=== PATIENT | male | born 1930 | race Caucasian/White ===

== ENCOUNTER 2017-01-13 13:25 | Inpatient (IN) ==
[2017-01-13] MEDS ORDERED: Ipratropium/Albuterol Neb 3 ML IH ONE (13:54)
[2017-01-13] MEDS ORDERED: Furosemide 40 MG/4 ML VIAL IVP ONE (13:54)
--- NOTE | 2017-01-13 14:09 | Emergency Department Note ---
Disposition Clinical Impression: Pleural effusion, Elevated troponin level Dyspnea Qualifiers: Dyspnea type: orthopnea Qualified Code(s): R06.01 - Orthopnea CHF (congestive heart failure) Qualifiers: Congestive heart failure type: unspecified congestive heart failure type Congestive heart failure chronicity: acute on chronic Qualified Code(s): I50.9 - Heart failure, unspecified Disposition: Admitted As Inpatient Condition: Fair SOB HPI - General Chief Complaint: ED Shortness of Breath/Dyspnea Stated Complaint: "think i have CHF" Time Seen by Provider: 01/13/17 13:34 Source: patient Nursing Notes Reviewed: Yes Vital Signs Reviewed: Yes - History of Present Illness 86-year-old male presents due to orthopnea and peripheral edema that has been worsening over the past week. Denies associated chest pain or tightness. No palpitations. No syncope. Denies abdominal pain or bloating. He had increased his Lasix for 3 days with transient improvement but the edema has returned. He is having difficulty sleeping due to the orthopnea. Denies associated fever but has had a cough productive of thick, [place] sputum. Pt Subjective Complaint: shortness of breath Onset (ago): day(s) (7) Severity: moderate Consistency/Duration: constant Improves with: nothing Worsens with: lying flat, coughing Known history of: COPD, congestive heart failure Associated symptoms: Reports: cough, sputum production, orthopnea. Denies: chest pain, fever, palpitations, hemoptysis, nausea/vomiting, syncope Treatment prior to arrival: none Cough present: Yes Cough Description: Productive Sputum production: Yes Sputum Amount: Small Sputum Color: [place] - Related Data Home Medications Medication Instructions Recorded Confirmed Amlodipine Besylate 10 mg PO DAILY 01/13/17 01/13/17 Calcitriol [Rocaltrol] 0.25 mcg PO DAILY 01/13/17 01/13/17 Cholecalciferol (D-3) [Vitamin D] 2,000 unit PO DAILY 01/13/17 01/13/17 Clopidogrel [Plavix] 75 mg PO DAILY 01/13/17 01/13/17 Docusate [Colace] 100 mg PO BID 01/13/17 01/13/17 Finasteride [Proscar] 5 mg PO DAILY 01/13/17 01/13/17 Furosemide [Lasix] 40 mg PO DAILY 01/13/17 01/13/17 Insulin ASPART [NovoLOG] 0 unit SQ 1700 01/13/17 01/13/17 Insulin ASPART [NovoLOG] 20 unit SQ 0800,1200 01/13/17 01/13/17 Insulin NPH Human Isophane 15 unit SQ QAM AND QHS 01/13/17 01/13/17 [Novolin N] Levothyroxine [Synthroid] 150 mcg PO QAM 01/13/17 01/13/17 Lisinopril [Zestril] 40 mg PO BID 01/13/17 01/13/17 Metoprolol Succinate 100 mg PO DAILY 01/13/17 01/13/17 Simvastatin [Zocor] 20 mg PO HS 01/13/17 01/13/17 Warfarin [Coumadin] 2.5 mg PO Q72H 01/13/17 01/13/17 Allergies Allergy/AdvReac Type Severity Reaction Status Date / Time No Known Allergies Allergy Verified 01/13/17 13:32 All systems ED: reviewed and negative except as stated. Constitutional: Denies: fever Cardiovascular: Denies: chest pain Respiratory: Reports: cough, sputum production Gastrointestinal: Denies: abdominal pain, nausea Genitourinary: Denies: urgency, dysuria Musculoskeletal: Denies: back pain Neurological: Denies: headache, weakness Endocrine: Reports: fatigue Past Medical History - Past Medical History Attestation: Yes The following information was validated with the patient. Medical history: Reports: CHF, coronary artery disease, diabetes, hypertension, myocardial infarction, renal disease Surgical history: Reports: coronary bypass (CABG), AICD, pacemaker. Denies: heart valve replacement Psychiatric history: Reports: no psych history - Social History Smoking Status: Former smoker Alcohol use: Reports: none Drug use: Reports: none Physical Exam - General General appearance: alert, in no apparent distress - Eye Eye exam: Present: normal appearance - ENT ENT exam: normal exam - Neck Neck exam: Present: normal inspection - Chest Chest inspection: Present: normal inspection - Respiratory Respiratory exam: Present: wheezes. Absent: respiratory distress - Expanded Respiratory Exam Location: rales: Lower, Right, Left - Cardiovascular Cardiovascular exam: Present: regular rate - Abdominal Exam Abdominal exam: Present: soft, Non-Tender - Extremities Exam Extremities exam: Absent: tenderness - Expanded Lower Extremity Exam Lower leg exam: Present: swelling Ankle exam: Present: swelling Foot/toe exam: Present: swelling - Back Exam Back exam: Absent: CVA tenderness (R), CVA tenderness (L), paraspinal tenderness - Neurological Exam Neurological exam: Present: alert, oriented X3 - Psychiatric Psychiatric exam: Present: normal affect - Skin Skin exam: Present: warm, dry Course - Reevaluation(s) Reevaluation #1: Patient improved after one aerosol treatment and 40 mg of IV Lasix. Troponin is elevated and he will be admitted for further workup. He is 10 years status post 2 vessel CABG and we will have to consider the possibility of recurring coronary disease. Vital Signs Temperature 97.4 F L 01/13/17 13:29 Pulse Rate 89 01/13/17 13:29 Respiratory Rate 16 01/13/17 13:29 Blood Pressure 130/71 01/13/17 13:29 O2 Sat by Pulse Oximetry 90 01/13/17 13:29 Temperature 97.9 F 01/13/17 16:50 Pulse Rate 94 01/13/17 16:50 Respiratory Rate 16 01/13/17 16:50 Blood Pressure 126/81 01/13/17 16:50 O2 Sat by Pulse Oximetry 96 01/13/17 16:50 Oxygen Delivery Oxygen Delivery Nasal Cannula Shortness of Breath/Dyspnea - Lab Data Result diagrams: 01/13/17 14:06 01/13/17 14:06 Lab Results 01/13/17 01/13/17 01/13/17 Range/Units 14:06 14:06 14:06 WBC 6.2 (4.3-11.1) K/mcL RBC 3.87 L (4.19-5.50) M/mcL Hgb 11.9 L (12.9-16.9) g/dL Hct 36.9 L (37.5-50.1) % MCV 95.3 (83.0-100.0) fL MCH 30.7 (28.0-33.3) pg MCHC 32.2 (31.6-35.5) g/dL RDW 13.0 (11.5-14.5) % Plt Count 192 (140-400) K/mcL MPV 9.1 L (9.4-12.4) fL Immature Gran % 0.5 (0-4) % Seg Neutrophils % 69.7 % Lymphocytes % 23.1 % Monocytes % 6.3 % Eosinophils % 0.2 % Basophils % 0.2 % Neutrophils # 4.3 (1.6-8.9) K/mcL Lymphocytes # 1.4 (0.6-4.6) K/mcL Monocytes # 0.4 (0.0-1.3) K/mcL Eosinophils # 0.0 (0.0-0.6) K/mcL Basophils # 0.0 (0.0-0.2) K/mcL Sodium 138 (136-145) mEq/L Potassium 4.2 (3.5-4.5) mEq/L Chloride 103 (98-109) mEq/L Carbon Dioxide 26 (19-29) mEq/L BUN 30 H (8-26) mg/dL Creatinine 1.51 H (0.72-1.25) mg/dL Est GFR ( Amer) 53 L (> 60) Est GFR (Non-Af Amer) 44 L (> 60) BUN/Creatinine Ratio 20 (6-26) Glucose 150 H (70-99) mg/dL Calculated Osmolality 295 (280-300) Calcium 9.1 (8.6-10.8) mg/dL Troponin I 0.08 H* (0-0.03) ng/mL B-Natriuretic Peptide (0-100) pg/mL Albumin 3.4 L (3.5-5.0) g/dL Urine Color (Yellow) Urine Clarity (Clear) Urine pH (5.0-8.0) pH Units Ur Specific Mark (1.010-1.025) Urine Protein (Neg-Trace) mg/dL Urine Glucose (UA) (Normal) mg/dL Urine Ketones (Negative) mg/dL Urine Blood (Negative) Urine Nitrite (Negative) Urine Bilirubin (Negative) Urine Urobilinogen (Normal) mg/dL Ur Leukocyte Esterase (Negative) Urine Microscopic WBC Ur Squamous Epith Cells (None-Few) per lpf Hyaline Casts (None-Few) per lpf Ur Culture Indicated? (NO) 01/13/17 01/13/17 Range/Units 14:06 15:07 WBC (4.3-11.1) K/mcL RBC (4.19-5.50) M/mcL Hgb (12.9-16.9) g/dL Hct (37.5-50.1) % MCV (83.0-100.0) fL MCH (28.0-33.3) pg MCHC (31.6-35.5) g/dL RDW (11.5-14.5) % Plt Count (140-400) K/mcL MPV (9.4-12.4) fL Immature Gran % (0-4) % Seg Neutrophils % % Lymphocytes % % Monocytes % % Eosinophils % % Basophils % % Neutrophils # (1.6-8.9) K/mcL Lymphocytes # (0.6-4.6) K/mcL Monocytes # (0.0-1.3) K/mcL Eosinophils # (0.0-0.6) K/mcL Basophils # (0.0-0.2) K/mcL Sodium (136-145) mEq/L Potassium (3.5-4.5) mEq/L Chloride (98-109) mEq/L Carbon Dioxide (19-29) mEq/L BUN (8-26) mg/dL Creatinine (0.72-1.25) mg/dL Est GFR ( Amer) (> 60) Est GFR (Non-Af Amer) (> 60) BUN/Creatinine Ratio (6-26) Glucose (70-99) mg/dL Calculated Osmolality (280-300) Calcium (8.6-10.8) mg/dL Troponin I (0-0.03) ng/mL B-Natriuretic Peptide 515 H (0-100) pg/mL Albumin (3.5-5.0) g/dL Urine Color Yellow (Yellow) Urine Clarity Clear (Clear) Urine pH 5.5 (5.0-8.0) pH Units Ur Specific Mark 1.016 (1.010-1.025) Urine Protein 100 H (Neg-Trace) mg/dL Urine Glucose (UA) Normal (Normal) mg/dL Urine Ketones Negative (Negative) mg/dL Urine Blood Small H (Negative) Urine Nitrite Negative (Negative) Urine Bilirubin Negative (Negative) Urine Urobilinogen Normal (Normal) mg/dL Ur Leukocyte Esterase Negative (Negative) Urine Microscopic WBC Test Not Performed Ur Squamous Epith Cells Few (None-Few) per lpf Hyaline Casts Few (None-Few) per lpf Ur Culture Indicated? NO (NO) - EKG Data EKG attestation: Yes I reviewed and interpreted this EKG. EKG results narrative: Electronic ventricular pacemaker with a rate of 93. Rate: Reports: normal Rhythm: Reports: other (Electronic ventricular pacemaker) Critical Care Time Attestation: The high probability of a clinically significant, sudden or life threatening deterioration of the [cardiovascular] system(s) required my full and direct attention, intervention and personal management. The aggregate critical care time was [32] minutes. This time is in addition to time spent performing reported procedures but includes the following: [x] Data Review and interpretation [x] Patient assessment and monitoring of vital signs [x] Documentation [x] Medication orders and management
[2017-01-13 14:19] LABS: Basophils % 0.2 %; Eosinophils % 0.2 %; Hematocrit 36.9 % (37.5-50.1); Hemoglobin 11.9 g/dL (12.9-16.9); Immature Granulocytes % 0.5 % (0-4); Lymphocytes # 1.4 K/mcL (0.6-4.6); Lymphocytes % 23.1 %; Mean Corpuscular HGB Conc 32.2 g/dL (31.6-35.5); Mean Corpuscular Hemoglobin 30.7 pg (28.0-33.3); Mean Corpuscular Volume 95.3 fL (83.0-100.0); Mean Platelet Volume 9.1 fL (9.4-12.4); Monocytes # 0.4 K/mcL (0.0-1.3); Monocytes % 6.3 %; Neutrophils # 4.3 K/mcL (1.6-8.9); Platelet Count 192 K/mcL (140-400); Red Blood Count 3.87 M/mcL (4.19-5.50); Segmented Neutrophils % 69.7 %
[2017-01-13 14:29] LABS: Albumin 3.4 g/dL (3.5-5.0); Calcium 9.1 mg/dL (8.6-10.8); Potassium 4.2 mEq/L (3.5-4.5)
[2017-01-13] MEDS ORDERED: Aspirin 81 MG TAB.CHEW PO ONE (14:58)
[2017-01-13 15:18] LABS: Bilirubin,Urine Negative (Negative); Blood,Urine Small (Negative); Clarity,Urine Clear (Clear); Color,Urine Yellow (Yellow); Glucose,Urine (UA) Normal (Normal); Ketones,Urine Negative (Negative); Leukocyte Esterase,Urine Negative (Negative); Nitrite,Urine Negative (Negative); PH,Urine 5.5 pH Units (5.0-8.0); Protein,Urine 100 mg/dL (Neg-Trace); Specific Gravity,Urine 1.016 (1.010-1.025); Urobilinogen,Urine Normal (Normal)
[2017-01-13 15:30] LABS: Hyaline Casts,Urine Few per lpf (None-Few); Squamous Epithelial Cell,Urine Few per lpf (None-Few)
--- NOTE | 2017-01-13 17:12 | Internal Med History&Physical ---
Date of Encounter: 01/13/17 Time of Encounter: 17:09 Assessment and Plan (1) Acute exacerbation of CHF (congestive heart failure) Current visit: Yes Status: Acute symptoms of orthopnea/PND 2/2 CHF excerbation last ECHO on 2012 shows EF of 30%, s/p AICD placement. will order repeat ECHO CXR shows vascular congestion. fluid restriction connie start IV lasix 40 daily, monitor BNP> f/u cardio consult. will continue home meds. Qualifiers: Congestive heart failure type: systolic Qualified Code(s): I50.23 - Acute on chronic systolic (congestive) heart failure (2) Atrial fibrillation Current visit: Yes Status: Acute h/o atrial fib, on AC. stable for now, will continue home meds Qualifiers: Atrial fibrillation type: chronic Qualified Code(s): I48.2 - Chronic atrial fibrillation (3) HTN (hypertension) Current visit: Yes Status: Chronic Qualifiers: Hypertension type: essential hypertension Qualified Code(s): I10 - Essential (primary) hypertension (4) Diabetes Current visit: Yes Status: Acute Qualifiers: Diabetes mellitus type: type 2 Diabetes mellitus complication status: without complication Diabetes mellitus mcc insulin use: with mcc use Qualified Code(s): E11.9 - Type 2 diabetes mellitus without complications ; Z79.4 - FDC (current) use of insulin (5) Elevated troponin Current visit: Yes Status: Acute possible demand ischemia in the setting of CHF exacerbation. denies any chest pain at this time, EKG shows paced ventricular rhythm. will trend trop, he has h/o systolic dysfxn, if EF is worse on the ECHO may need ischemic evaluation. (6) CKD (chronic kidney disease) Current visit: Yes Status: Acute Creatinine at baseline, follows with Dr. Vazquez. Monitor chem7. Qualifiers: Chronic kidney disease stage: stage 3 (moderate) Qualified Code(s): N18.3 - Chronic kidney disease, stage 3 (moderate) Internal Medicine - H&P: HPI Chief complaint: sob Admitted From: Home Plans for Post Hospital Care: Home History of present illness: Mr. Sanchez is a 86 year old male with past medical history of CHF, EF of 30% 2012, history of atrial fibrillation, hypertension, diabetes presented to ED with complaints of shortness of breath for the last 2 weeks. He denies any chest pain, but says he has been having worsening shortness of breath with orthopnea and PND started 2 weeks ago. He also complains of worsening bilateral lower leg swelling and abdominal swelling. He gives history of CHF and follows Dr. Johnson, he reports that he takes Lasix at home, noncompliant with medications and diet. There is no history of fever or cough, no nausea or vomiting. Patient was given 40 mg of IV Lasix at ED, after which he says he feels better. He does not smoke or drink, not on home oxygen. At the time of my evaluation, patient is resting in bed,in no acute respiratory distress. Past Med Surg Social Fam HX - Past Medical History Medical history: CHF, coronary artery disease, diabetes, hypertension, myocardial infarction, renal disease Psychiatric history: no psych history - Past Surgical History Surgical History: coronary bypass (CABG), AICD, pacemaker - Social History Smoking Status: Former smoker Alcohol use: none Drug use: none Internal Medicine - H&P: Meds Amlodipine Besylate 10 mg PO DAILY 01/13/17 [History] Calcitriol [Rocaltrol] 0.25 mcg PO DAILY 01/13/17 [History] Cholecalciferol (D-3) [Vitamin D] 2,000 unit PO DAILY 01/13/17 [History] Clopidogrel [Plavix] 75 mg PO DAILY 01/13/17 [History] Docusate [Colace] 100 mg PO BID 01/13/17 [History] Finasteride [Proscar] 5 mg PO DAILY 01/13/17 [History] Furosemide [Lasix] 40 mg PO DAILY 01/13/17 [History] Insulin ASPART [NovoLOG] 0 unit SQ 1700 01/13/17 [History] Insulin ASPART [NovoLOG] 20 unit SQ 0800,1200 01/13/17 [History] Insulin NPH Human Isophane [Novolin N] 15 unit SQ QAM AND QHS 01/13/17 [History] Levothyroxine [Synthroid] 150 mcg PO QAM 01/13/17 [History] Lisinopril [Zestril] 40 mg PO BID 01/13/17 [History] Metoprolol Succinate 100 mg PO DAILY 01/13/17 [History] Simvastatin [Zocor] 20 mg PO HS 01/13/17 [History] Warfarin [Coumadin] 2.5 mg PO Q72H 01/13/17 [History] Allergies No Known Allergies Allergy (Verified 01/13/17 13:32) All Systems PM: A 10-system review of systems was performed and is negative for pertinent findings except as documented above in the HPI. - Constitutional Constitutional: as per HPI - EENT Eyes: as per HPI Ears: as per HPI Nose, mouth and throat: as per HPI - Breasts Breasts: as per HPI - Cardiovascular Cardiovascular ROS IM: dyspnea on exertion, edema - Respiratory Respiratory: dyspnea - Gastrointestinal Gastrointestinal: as per HPI - Genitourinary Genitourinary ROS male: as per HPI - Musculoskeletal Musculoskeletal ROS IM: as per HPI - Constitutional Vitals: Temp Pulse Resp BP Pulse Ox 97.9 F 94 16 126/81 96 01/13/17 16:50 01/13/17 16:50 01/13/17 16:50 01/13/17 16:50 01/13/17 16:50 General appearance: Present: A&O X 3, no acute distress Exam: neck- supple chest- b/l occasional creptns on the bases, no wheezing cvs-s1 and s2, no mr/g/ abd-soft, non tender, bs are present ext- b/l lower leg edema,pittingup to his thigh. neuro- no focal neuro defecits, alert and awake Internal Med - H&P Results - Labs CBC & Chem 7: 01/13/17 14:06 01/13/17 14:06 - VTE Documentation of Mechanical Device: Intermittent pneumatic compression device
[2017-01-13] MEDS ORDERED: Naloxone 0.4 MG/ML INJ IVP PRN (17:27)
[2017-01-13] MEDS ORDERED: *HR* Warfarin 2.5 MG TABLET PO SCH (18:00)
[2017-01-13] MEDS ORDERED: *HR* Warfarin 5 MG TABLET PO SCH (18:00)
[2017-01-13] MEDS ORDERED: *HR* Dextrose 50 % in Water (Syg) 50 ML SYRINGE IVP PRN (19:32)
[2017-01-13] MEDS ORDERED: D5% in Water 1,000 ML IVC PRN (19:32)
[2017-01-13] MEDS ORDERED: Dextrose Gel 15 GM PO PRN ×2 (19:32)
[2017-01-13] MEDS ORDERED: Perflutren Lipid Microsphere 1.3 ML in 0.9 % Sodium Chloride 8.7 ML IVP ONE (20:40)
[2017-01-13] MEDS: Insulin LISPRO 300 UNITS/3 ML VIAL SQ SCH (22:27)
[2017-01-13] MEDS: Insulin DETEMIR 100 UNIT/ML X5UNITS SQ SCH (22:29)
[2017-01-13] MEDS: Lisinopril 20 MG TABLET PO SCH (22:29)
[2017-01-13 22:57] LABS: INR 2.3
[2017-01-14 03:10] LABS: Basophils % 0.1 %; Eosinophils # 0.1 K/mcL (0.0-0.6); Eosinophils % 0.7 %; Hematocrit 36.4 % (37.5-50.1); Hemoglobin 11.7 g/dL (12.9-16.9); Immature Granulocytes % 0.3 % (0-4); Lymphocytes # 2.1 K/mcL (0.6-4.6); Lymphocytes % 28.4 %; Mean Corpuscular HGB Conc 32.1 g/dL (31.6-35.5); Mean Corpuscular Hemoglobin 30.4 pg (28.0-33.3); Mean Corpuscular Volume 94.5 fL (83.0-100.0); Mean Platelet Volume 9.3 fL (9.4-12.4); Monocytes # 0.5 K/mcL (0.0-1.3); Monocytes % 6.2 %; Neutrophils # 4.7 K/mcL (1.6-8.9); Platelet Count 195 K/mcL (140-400); Red Blood Count 3.85 M/mcL (4.19-5.50); Red Cell Distribution Width 12.8 % (11.5-14.5); Segmented Neutrophils % 64.3 %
[2017-01-14 03:18] LABS: Calcium 8.7 mg/dL (8.6-10.8); Magnesium 1.8 mg/dL (1.6-2.6); Phosphorous 3.4 mg/dL (2.3-4.7); Potassium 3.8 mEq/L (3.5-4.5)
[2017-01-14] MEDS: Furosemide 40 MG/4 ML VIAL IVP SCH (08:08)
[2017-01-14] MEDS: Metoprolol XL (24 HR) Succ 50 MG TAB.ER.24H PO SCH (08:08)
[2017-01-14] MEDS: Finasteride 5 MG TABLET PO SCH (08:09)
[2017-01-14] MEDS: Lisinopril 20 MG TABLET PO SCH ×2 (08:09→21:09)
[2017-01-14] MEDS: Insulin LISPRO 300 UNITS/3 ML VIAL SQ SCH ×5 (08:10→21:10)
[2017-01-14] MEDS ORDERED: amLODIPine 5 MG TABLET PO SCH (09:00)
--- NOTE | 2017-01-14 10:26 | Internal Med Progress Note ---
<Brice Faith - Last Filed: 01/14/17 14:11> Date of Encounter: 01/14/17 - Constitutional Vitals: Temp Pulse Resp BP Pulse Ox 97.6 F 83 15 135/72 95 01/14/17 11:34 01/14/17 11:34 01/14/17 11:34 01/14/17 11:34 01/14/17 11:34 Internal Medicine: Result - Labs CBC & Chem 7: 01/14/17 02:42 01/14/17 02:42 Labs: Short CBC 01/14/17 Range/Units 02:42 WBC 7.3 (4.3-11.1) K/mcL Hgb 11.7 L (12.9-16.9) g/dL Hct 36.4 L (37.5-50.1) % Plt Count 195 (140-400) K/mcL Neutrophils # 4.7 (1.6-8.9) K/mcL BMP 01/14/17 02:42 Sodium 138 Potassium 3.8 Chloride 103 Carbon Dioxide 28 BUN 27 H Creatinine 1.49 H Glucose 139 H Calcium 8.7 Cardiac Enzymes 01/13/17 01/14/17 Range/Units 20:18 02:42 Troponin I 0.08 H* 0.09 H* (0-0.03) ng/mL - ABG Interpretation ABG results: PT/INR, D-dimer PT 25.0 Seconds (9.4-12.1) H 01/13/17 22:46 Consult Discharge Plan - Plan Referrals: Fabrizio Campbell MD [Primary Care Provider] - - Attending Attestation I examined this patient and my medical decision-making was reviewed with the ELECTRONICS REPAIR TECHNICIAN/PA/Advanced Practice Nurse/Resident Physician. I agree with the documented findings, disposition and treatment plan as described except to the extent set forth below. appreciated cardiology recommendations home tomorrow <Maxim Spencer - Last Filed: 01/14/17 14:43> Date of Encounter: 01/14/17 Time of Encounter: 14:27 - Assessment and plan (1) Acute exacerbation of CHF (congestive heart failure) Current Visit: Yes Status: Acute Assessment and plan: 86 y/o male presents with chief complaint of shortness of breath. Shortness of breath worsens with lying down. Patient also says he has had worsening lower extremity edema. Currently he is on Lasix for history of CHF. Patient will increase the dose but had transient improvement in his lower extremity edema and shortness of breath. BNP 515 Chest x-ray shows pulmonary vascular congestion Last echo in 2012 showed EF of 30%. Repeat echo shows EF of 30%. Patient was given IV Lasix in the ER and had improvement in his shortness of breath. Continue strict I's and O's, cardiac, fluid restricted, ADA diet. Patient is noncompliant with his fluid restricted diet and diet consists of high salt foods. He states he takes his Lasix regularly. Cardiology recommendations appreciated. Qualifiers: Congestive heart failure type: systolic Qualified Code(s): I50.23 - Acute on chronic systolic (congestive) heart failure (2) Elevated troponin Current Visit: Yes Status: Acute Assessment and plan: Troponin 0.08,0.08,0.09 Adynamic, demand ischemia and in setting of CKD Echo LVEF 30% no change from pervious Continue palavix, statin, metoprolol,naz Hx of CAD s/p CABG x 2. [facility] 2012 moderate 2 vessel disease with 2/2 patent bypass grafts. s/p ICD (3) Atrial fibrillation Current Visit: Yes Status: Chronic Assessment and plan: Rate controlled and anticoagulated with Coumadin with INR 2.3. Continue metoprolol and Coumadin. Qualifiers: Atrial fibrillation type: unspecified Qualified Code(s): I48.91 - Unspecified atrial fibrillation (4) HTN (hypertension) Current Visit: Yes Status: Chronic Assessment and plan: Controlled. Continue lisinopril. Amlodipine discontinued this patient has Low EF. Will monitor BP. Qualifiers: Hypertension type: essential hypertension Qualified Code(s): I10 - Essential (primary) hypertension (5) Diabetes Current Visit: Yes Status: Chronic Assessment and plan: Controlled. Continue levamir 10 units SQ HS and SSI Qualifiers: Diabetes mellitus type: type 2 Diabetes mellitus complication status: without complication Diabetes mellitus longterm insulin use: with longterm use Qualified Code(s): E11.9 - Type 2 diabetes mellitus without complications ; Z79.4 - jail (current) use of insulin (6) CKD (chronic kidney disease) Current Visit: Yes Status: Chronic Assessment and plan: SCr baseline. continue to monitor. has increase urine production 2nd to diuresis. I and O -905 Qualifiers: Chronic kidney disease stage: stage 3 (moderate) Qualified Code(s): N18.3 - Chronic kidney disease, stage 3 (moderate) - Subjective Interval history: Patient states his shortness of breath has improved tremendously. His lower extremity swelling has also improved. He denies any chest pain, nausea. States he has bilateral lower extremity cramping but it is not present at this moment. - Constitutional Vitals: Temp Pulse Resp BP Pulse Ox 97.8 F 86 16 127/73 97 01/14/17 06:46 01/14/17 06:46 01/14/17 06:46 01/14/17 06:46 01/14/17 06:46 General appearance: Present: A&O X 3, no acute distress - Head Head exam: Present: atraumatic, normocephalic - Eye Eye exam: Present: PERRL, conjuntiva pink, sclera anicteric - Neck Neck exam general surgery: Present: supple, trachea midline. Absent: lymphadenopathy - Respiratory Respiratory exam: Present: CTAB. Absent: accessory muscle use, rales, rhonchi, wheezes - Cardiovascular Cardiovascular exam: Present: RRR, +S1, +S2. Absent: diastolic murmur, gallop, rubs, systolic murmur - GI/Abdominal GI/Abdominal exam: Present: normal bowel sounds, soft, no peritoneal signs. Absent: distended, tenderness - Extremities Exam Extremities exam: Present: warm, radial pulses palpable and symetrical. Absent : calf tenderness, cyanotic, pedal edema - Neurological Exam Neurological exam: Present: CN II-XII intact, oriented X3, no focal deficits. Absent: pronater drift, facial droop, speech deficit - Skin Skin exam: Present: dry, intact Internal Medicine: Result - Labs CBC & Chem 7: 01/14/17 02:42 01/14/17 02:42 Labs: Short CBC 01/14/17 Range/Units 02:42 WBC 7.3 (4.3-11.1) K/mcL Hgb 11.7 L (12.9-16.9) g/dL Hct 36.4 L (37.5-50.1) % Plt Count 195 (140-400) K/mcL Neutrophils # 4.7 (1.6-8.9) K/mcL BMP 01/14/17 02:42 Sodium 138 Potassium 3.8 Chloride 103 Carbon Dioxide 28 BUN 27 H Creatinine 1.49 H Glucose 139 H Calcium 8.7 Cardiac Enzymes 01/13/17 01/14/17 Range/Units 20:18 02:42 Troponin I 0.08 H* 0.09 H* (0-0.03) ng/mL - ABG Interpretation ABG results: PT/INR, D-dimer PT 25.0 Seconds (9.4-12.1) H 01/13/17 22:46 - VTE Documentation of Mechanical Device: Intermittent pneumatic compression device
--- NOTE | 2017-01-14 10:55 | Cardiology Consult Note ---
Date of Encounter: 01/14/17 Time of Encounter: 10:55 Assessment and Plan (1) Acute exacerbation of CHF (congestive heart failure) Current Visit: Yes Status: Acute Acute on chronic systolic CHF exacerbation. Known EF of 30% on echo in 2013 s/p ICD placement. Echo resulted from yesterday and EF remains 30%. Increased dyspnea and BLE edema over the past 2 weeks. Pleural effusions and vascular congestion on CXR. BNP 515. Symptoms are improving with IV diureses, 40mg IV Lasix daily. Cumulative I/O - 845mL. Recommmend 2L fluid restriction, Na restriction, daily weights. Pt reports compliance with diet at home. Creatinine 1.49 today, was 1.51 yesterday. Currently improved from his usual baseline. Will discuss with Dr. Preciado regarding increasing to IV Lasix to BID. Qualifiers: Congestive heart failure type: systolic Qualified Code(s): I50.23 - Acute on chronic systolic (congestive) heart failure (2) Cardiomyopathy Current Visit: Yes Status: Chronic Hx of CAD s/p CABG x 2. [facility] 2012 moderate 2 vessel disease with 2/2 patent bypass grafts. EF 30%, known. ICD in place. On BB and EMILI-i. Diuresing as above. Qualifiers: Cardiomyopathy type: ischemic Qualified Code(s): I25.5 - Ischemic cardiomyopathy (3) ICD (implantable cardioverter-defibrillator) in place Current Visit: Yes Status: Chronic Interrogated 11/24/16. NSVT noted. All measurements appropriate. Follow with device clinic as planned. (4) Atrial fibrillation Current Visit: Yes Status: Chronic Known A-Fib. Ventricularly paced with underlying A-Fib. Continue BB. Anticoagulated on Coumadin INR 2.3. Qualifiers: Atrial fibrillation type: unspecified Qualified Code(s): I48.91 - Unspecified atrial fibrillation (5) Elevated troponin Current Visit: Yes Status: Acute Troponins 0.08, 0.08, 0.09 in setting of acute CHF exacerbation. Nondiagnostic for ACS. Pt denies chest pain. (6) CAD (coronary artery disease) Current Visit: Yes Status: Chronic S/P 2 vessel CABG. [facility] 2012 moderate 2 vessel disease with 2/2 patent bypass grafts. Continue Plavix, Statin, BB, EMILI-i. Qualifiers: Coronary Disease-Associated Artery/Lesion type: [place] artery [place] vs. transplanted heart: [place] heart Associated angina: without angina Qualified Code(s): I25.10 - Atherosclerotic heart disease of [place] coronary artery without angina pectoris Discussion w patient/family: The assessment and plan as outlined above was discussed with the patient and/or family members who expressed understanding and agreement. All questions were answered. Thank you for involving us in the care of your patient. Please call with any questions. I will discuss all the above with Dr. Preciado and make changes as necessary. History of Present Illness Consult date: 01/14/17 Requesting physician: Bijal Russell Consult reason: CHF Chief complaint: dyspnea, lower extremity edema History of present illness: Mr. Sanchez is a 86 year old male with PMH of CMP, systolic CHF with EF of 30% 2013 s/p ICD, history of atrial fibrillation on Coumadin, CKD stage 3, hypertension, diabetes CAD s/p CABG x 2 in remote past that presented to ED with complaints of shortness of breath for the last 2 weeks. He denies any chest pain, but says he has been having worsening shortness of breath with orthopnea and PND started 2 weeks ago. He also complains of worsening bilateral lower leg swelling and abdominal swelling. He takes Lasix at home, reports he is compliant with Na and fluid restriction at home. Pt reports feeling much better since receiving IV Lasix. He reports his lower extremity edema has already improved. BNP on admission 515, CXR with vascular congestion. Troponins 0.08, 0.08, 0.09. [facility] 03/02/13 showed moderate 2 vessel CAD, 2/2 patent bypass grafts. Cumulative I/O -845mL. Echo resulted from yesterday--EF remains 30%. Past Med Surg Social Fam HX - Past Medical History Medical history: atrial fibrillation, cardiomyopathy, CHF, coronary artery disease, diabetes, hypertension, myocardial infarction, renal disease Psychiatric history: no psych history - Past Surgical History Surgical History: coronary bypass (CABG), AICD, pacemaker - Social History Smoking Status: Former smoker Alcohol use: none Drug use: none Medications and Allergies Amlodipine Besylate 10 mg PO DAILY 01/13/17 [History] Calcitriol [Rocaltrol] 0.25 mcg PO DAILY 01/13/17 [History] Cholecalciferol (D-3) [Vitamin D] 2,000 unit PO DAILY 01/13/17 [History] Clopidogrel [Plavix] 75 mg PO DAILY 01/13/17 [History] Docusate [Colace] 100 mg PO BID 01/13/17 [History] Finasteride [Proscar] 5 mg PO DAILY 01/13/17 [History] Furosemide [Lasix] 40 mg PO DAILY 01/13/17 [History] Insulin ASPART [NovoLOG] 0 unit SQ 1700 01/13/17 [History] Insulin ASPART [NovoLOG] 20 unit SQ 0800,1200 01/13/17 [History] Insulin NPH Human Isophane [Novolin N] 15 unit SQ QAM AND QHS 01/13/17 [History] Levothyroxine [Synthroid] 150 mcg PO QAM 01/13/17 [History] Lisinopril [Zestril] 40 mg PO BID 01/13/17 [History] Metoprolol Succinate 100 mg PO DAILY 01/13/17 [History] Simvastatin [Zocor] 20 mg PO HS 01/13/17 [History] Warfarin [Coumadin] 2.5 mg PO Q72H 01/13/17 [History] Allergies No Known Allergies Allergy (Verified 01/13/17 13:32) All Systems Review: A 10-system review of systems was performed and is negative for pertinent findings except as documented above in the HPI. - Cardiovascular Cardiovascular: as per HPI, dyspnea at rest, dyspnea on exertion, leg edema, orthopnea, paroxysmal nocturnal dyspnea - Respiratory Respiratory: cough, dyspnea Physical Examination Vital Signs Temp Pulse Resp BP Pulse Ox 01/14/17 06:46 97.8 F 86 16 127/73 97 01/14/17 04:14 97.6 F 78 18 124/77 97 01/13/17 23:54 97.8 F 89 16 137/89 96 01/13/17 21:08 97.7 F 99 18 148/93 95 01/13/17 16:50 97.9 F 94 16 126/81 96 01/13/17 16:13 16 135/70 01/13/17 15:10 95 01/13/17 14:49 18 95 01/13/17 13:29 97.4 F L 89 16 130/71 90 Intake and Output 01/13/17 01/14/17 01/14/17 23:59 07:59 15:59 Intake Total 100 / 100 0 / 0 480 / 480 Output Total 200 / 200 375 / 375 850 / 850 Balance -100 / -100 -375 / -375 -370 / -370 Intake: Oral 100 / 100 0 / 0 480 / 480 Output: Urine 200 / 200 375 / 375 850 / 850 Other: Meal Breakfast Percent of Meal Consumed 0% # Voids 1 Weight 119.4 kg 119.1 kg 111.4 kg Blood Glucose* 192 145 Patient Weight 01/14/17 23:59 Weight 111.4 kg General: Conversant, No Apparent Distress HEENT: Atraumatic, Normocephaly, Mucus Membranes Moist Neck: No JVD, Normal carotid pulses Cardiac: Reg Rate and Rhythm, Normal S1 and S2, No Murmur Lungs: Other (diminished) Neuro: Alert and responsive, No focal deficits noted Abdomen: Soft, Non-Tender Skin: No rashes noted on visualized skin Musculoskeletal: No Chest Wall Tenderness Extremities: Other (+1 BLE edema) Results 01/14/17 02:42 01/14/17 02:42 Lab Results 01/13/17 01/13/17 01/14/17 20:18 22:46 02:42 WBC Hgb Hct Plt Count INR 2.3 Sodium Potassium Chloride Carbon Dioxide BUN Creatinine Glucose Calcium Magnesium Troponin I 0.08 H* 0.09 H* B-Natriuretic Peptide 01/14/17 01/14/17 01/14/17 02:42 02:42 02:42 WBC 7.3 Hgb 11.7 L Hct 36.4 L Plt Count 195 INR Sodium 138 Potassium 3.8 Chloride 103 Carbon Dioxide 28 BUN 27 H Creatinine 1.49 H Glucose 139 H Calcium 8.7 Magnesium 1.8 Troponin I B-Natriuretic Peptide 488 H Short CBC 01/14/17 01/13/17 Range/Units 02:42 14:06 WBC 7.3 6.2 (4.3-11.1) K/mcL Hgb 11.7 L 11.9 L (12.9-16.9) g/dL Hct 36.4 L 36.9 L (37.5-50.1) % Plt Count 195 192 (140-400) K/mcL Neutrophils # 4.7 4.3 (1.6-8.9) K/mcL BMP 01/14/17 01/13/17 Range/Units 02:42 14:06 Sodium 138 138 (136-145) mEq/L Potassium 3.8 4.2 (3.5-4.5) mEq/L Chloride 103 103 (98-109) mEq/L Carbon Dioxide 28 26 (19-29) mEq/L BUN 27 H 30 H (8-26) mg/dL Creatinine 1.49 H 1.51 H (0.72-1.25) mg/dL Glucose 139 H 150 H (70-99) mg/dL Calcium 8.7 9.1 (8.6-10.8) mg/dL Cardiac Enzymes 01/14/17 01/13/17 01/13/17 Range/Units 02:42 20:18 14:06 Troponin I 0.09 H* 0.08 H* 0.08 H* (0-0.03) ng/mL Liver Function 01/13/17 Range/Units 14:06 Albumin 3.4 L (3.5-5.0) g/dL Urine 01/13/17 Range/Units 15:07 Urine Color Yellow (Yellow) Urine Clarity Clear (Clear) Urine pH 5.5 (5.0-8.0) pH Units Ur Specific [place] 1.016 (1.010-1.025) Urine Protein 100 H (Neg-Trace) mg/dL Urine Glucose (UA) Normal (Normal) mg/dL Impressions Chest X-Ray 01/13/17 13:54 IMPRESSION: 1. Small to moderate left pleural effusion with underlying left basilar opacity most likely representing atelectasis. 2. Trace right pleural effusion. 3. Pulmonary vascular congestion with possible perihilar edema. Given effusions and mild cardiomegaly, congestive heart failure is suspected. D/ / Rigoberto Jimenez MD / Rigoberto Jimenez MD Interpreting Provider: Rigoberto Jimenez MD Active Medications Amlodipine Besylate (Norvasc) 10 mg PO DAILY DANIEL Stop: 07/16/17 09:01 Last Admin: 01/14/17 08:09 Dose: 10 mg Calcitriol (Rocaltrol) 0.25 mcg PO DAILY DANIEL Stop: 07/16/17 09:01 Last Admin: 01/14/17 08:09 Dose: 0.25 mcg Clopidogrel Bisulfate (Plavix) 75 mg PO DAILY [facility] Stop: 07/16/17 09:01 Last Admin: 01/14/17 08:09 Dose: 75 mg Dextrose/Water (Dextrose 50% (Syg)) 25 ml IVP AD PRN PRN Reason: Hypoglycemia Stop: 07/15/17 19:33 Docusate Sodium (Colace) 100 mg PO BID [facility] PRN Reason: Protocol Stop: 07/15/17 21:01 Last Admin: 01/14/17 08:09 Dose: 100 mg Finasteride (Proscar) 5 mg PO DAILY DANIEL PRN Reason: Protocol Stop: 07/16/17 09:01 Last Admin: 01/14/17 08:09 Dose: 5 mg Furosemide (Lasix) 40 mg IVP DAILY [facility] Stop: 07/16/17 09:01 Last Admin: 01/14/17 08:08 Dose: 40 mg Glucagon (Glucagen) 1 mg IM ONCE PRN PRN Reason: Hypoglycemia Stop: 07/15/17 19:33 Glucose (Gluctose) 15 gm PO ONCE PRN PRN Reason: Hypoglycemia Stop: 07/15/17 19:33 Glucose (Gluctose) 30 gm PO ONCE PRN PRN Reason: Hypoglycemia Stop: 07/15/17 19:33 Dextrose (Dextrose 5%) 1,000 mls @ 100 mls/hr IVC .Q10H PRN PRN Reason: HYPOGLYCEMIA Stop: 07/15/17 19:33 Insulin Detemir (Levemir) 10 unit SQ HS [facility] Stop: 07/15/17 21:01 Last Admin: 01/13/17 22:29 Dose: 10 unit Insulin Human Lispro (Humalog) 0 units SQ TIDAC [facility] PRN Reason: Protocol Stop: 07/16/17 07:31 Last Admin: 01/14/17 09:57 Dose: 4 units Insulin Human Lispro (Humalog) 0 units SQ HS [facility] PRN Reason: Protocol Stop: 07/15/17 21:01 Last Admin: 01/13/17 22:27 Dose: Not Given Levothyroxine Sodium (Synthroid) 150 mcg PO 30 [facility] Stop: 07/16/17 06:31 Last Admin: 01/14/17 05:59 Dose: 150 mcg Lisinopril (Zestril) 40 mg PO BID [facility] Stop: 07/15/17 21:01 Last Admin: 01/14/17 08:09 Dose: 40 mg Metoprolol Succinate (Toprol Xl) 100 mg PO DAILY [facility] Stop: 07/16/17 09:01 Last Admin: 01/14/17 08:08 Dose: 100 mg Naloxone HCl (Narcan) 0.4 mg IVP Q2MIN PRN PRN Reason: Opioid Reversal Stop: 07/15/17 17:28 Simvastatin (Zocor) 20 mg PO HS DANIEL PRN Reason: Protocol Stop: 07/15/17 21:01 Last Admin: 01/13/17 22:29 Dose: 20 mg Warfarin Sodium (Coumadin) 5 mg PO Q72H [facility] Stop: 07/15/17 18:01 Last Admin: 01/14/17 00:17 Dose: 5 mg Warfarin Sodium (Coumadin) 5 mg PO Q72H [facility] Stop: 07/17/17 18:01 Warfarin Sodium (Coumadin) 2.5 mg PO Q72H [facility] Stop: 07/16/17 18:01 - Imaging and Cardiology Echo: report reviewed - EKG Interpretation EKG results cardiology: personally reviewed (Ventricularly paced), other (24 hour tele AVG HR 91, paced, underlying A-Fib) Consult Discharge Plan - Plan Referrals: Fabrizio Campbell MD [Primary Care Provider] -
[2017-01-14] MEDS ORDERED: *HR* Warfarin 2.5 MG TABLET PO SCH (18:00)
[2017-01-14] MEDS ORDERED: Warfarin perPT PO PRN (18:00)
[2017-01-14] MEDS ORDERED: *HR* Warfarin 5 MG TABLET PO ONE (18:00)
[2017-01-14] MEDS ORDERED: Melatonin 3 MG TABLET PO PRN (20:50)
[2017-01-14] MEDS: Insulin DETEMIR 100 UNIT/ML X5UNITS SQ SCH (21:10)
[2017-01-15 05:42] LABS: Calcium 8.9 mg/dL (8.6-10.8); Magnesium 1.9 mg/dL (1.6-2.6); Potassium 4.2 mEq/L (3.5-4.5)
[2017-01-15 07:19] VITALS: BP 132/77
[2017-01-15] MEDS: Finasteride 5 MG TABLET PO SCH (08:18)
[2017-01-15] MEDS: Insulin LISPRO 300 UNITS/3 ML VIAL SQ SCH ×2 (08:19→13:04)
[2017-01-15] MEDS: Metoprolol XL (24 HR) Succ 50 MG TAB.ER.24H PO SCH (08:19)
[2017-01-15] MEDS: Furosemide 40 MG/4 ML VIAL IVP SCH (08:19)
[2017-01-15] MEDS: Lisinopril 20 MG TABLET PO SCH (08:19)
[2017-01-15 08:21] LABS: INR 2.1; Prothrombin Time 23.7 Seconds (9.4-12.1)
--- NOTE | 2017-01-15 09:01 | Discharge Summary ---
<Maxim Spencer - Last Filed: 01/15/17 14:51> Date of Encounter: 01/15/17 Time of Encounter: 08:58 - Discharge Diagnosis (1) Acute exacerbation of CHF (congestive heart failure) Priority: Primary Status: Acute Qualifiers: Congestive heart failure type: systolic Qualified Code(s): I50.23 - Acute on chronic systolic (congestive) heart failure (2) Elevated troponin Priority: Secondary Status: Acute (3) Atrial fibrillation Priority: Secondary Status: Chronic Qualifiers: Atrial fibrillation type: paroxysmal Qualified Code(s): I48.0 - Paroxysmal atrial fibrillation (4) HTN (hypertension) Priority: Secondary Status: Chronic Qualifiers: Hypertension type: essential hypertension Qualified Code(s): I10 - Essential (primary) hypertension (5) Diabetes Priority: Secondary Status: Chronic Qualifiers: Diabetes mellitus type: type 2 Diabetes mellitus complication status: without complication Diabetes mellitus snf insulin use: with snf use Qualified Code(s): E11.9 - Type 2 diabetes mellitus without complications ; 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 (6) CKD (chronic kidney disease) Priority: Secondary Status: Chronic Qualifiers: Chronic kidney disease stage: stage 3 (moderate) Qualified Code(s): N18.3 - Chronic kidney disease, stage 3 (moderate) - Discharge Medications Home Medications: Calcitriol [Rocaltrol] 0.25 mcg PO DAILY 01/13/17 [History] Cholecalciferol (D-3) [Vitamin D] 2,000 unit PO DAILY 01/13/17 [History] Clopidogrel [Plavix] 75 mg PO DAILY 01/13/17 [History] Docusate [Colace] 100 mg PO BID 01/13/17 [History] Finasteride [Proscar] 5 mg PO DAILY 01/13/17 [History] Furosemide [Lasix] 40 mg PO DAILY 01/13/17 [History] Insulin ASPART [NovoLOG] 0 unit SQ 1700 01/13/17 [History] Insulin ASPART [NovoLOG] 20 unit SQ 0800,1200 01/13/17 [History] Insulin NPH Human Isophane [Novolin N] 15 unit SQ QAM AND QHS 01/13/17 [History] Levothyroxine [Synthroid] 150 mcg PO QAM 01/13/17 [History] Lisinopril [Zestril] 40 mg PO BID 01/13/17 [History] Metoprolol Succinate 100 mg PO DAILY 01/13/17 [History] Simvastatin [Zocor] 20 mg PO HS 01/13/17 [History] Warfarin [Coumadin] 2.5 mg PO Q72H 01/13/17 [History] Allergies/Adverse Reactions: Allergies No Known Allergies Allergy (Verified 01/13/17 13:32) Procedures/tests Complete & Pending: Procedures Performed prior 72 hours Category Date Time Status ECG 12 lead ECG [ECG] Routine Y 01/13/17 13:42 Completed EV echocardiogram w enhance Routine Y 01/13/17 19:33 Completed Date of admission: 01/13/17 17:27 Primary care physician: Fabrizio Campbell MD Consults: 01/13/17 17:29 Consult to Cardiology [CONS] Routine Comment: Consulting Provider: Cardiology [place] Reason for Consult: Please evaluate this patient followed by Dr. Johnson presenting with symptoms of CHF exacerbation. Call Completed: No Discharging clinician: Maxim Spencer Anticipated date of discharge: 01/15/17 - Patient Status Disposition: Home, Self-Care Condition: Fair Functional capacity at discharge: independent ambulation Overall status at discharge: patient is progressing back to baseline - Discharge Instructions Instructions: Warfarin (By mouth), Heart Failure (DC), Atrial Fibrillation (DC) , Pacemaker (DC), Implantable Cardioverter Defibrillator (DC), Implantable Cardioverter Defibrillator (GEN), Diabetes Mellitus Type 2 in Adults (DC), Chronic Hypertension (DC) Follow Up With: Fabrizio Campbell MD [Primary Care Provider] - 01/27/17 1:00 pm Additional Instructions: Please follow up with primary care physician outpatient Continue on low salt low fat fluid restricted diet of 2 liters Discontinue amlodipine continue home lasix regimen Follow up for weekly INR check. - Diet and Activity Activity: increase activity as tolerated Diet: low fat, low cholesterol, low salt diet, other (fluid restriction of 2 liters ) Interval History: Mr. Sanchez is a 86 year old male chief complaint of shortness of breath. Shortness of breath worsens with lying down. Patient also says he has had worsening lower extremity edema. Currently he is on Lasix for history of CHF. Patient will increase the dose but had transient improvement in his lower extremity edema and shortness of breath. BNP 515, CXR pulmonary vascular congestion. Previous echo EF 30%. Given IV lasix in ER with improvement of SOB and started on 4L O2. Hospital course: Patient was diuresed for 48 hours with lasix. Cumulative I&O -2L. SOB and lower extremity edema improved. He was titrated of O2 and saturated >90% on room air. Echo showed EF 30%. Cardiology recommended d/c of amlodipine due to CHF and EF < 30%. Patient non compliant wiht low salt, fluid restricted diet at home. Plan: d/c amlodipine, continue lasix 40mg Daily. Strict adherence to low salt fluid restriction diet 2 L. Continue Plavix, statin, beta alicia, EMILI inhibitor. Follow up with PCP within 7 days. - Time Spent with Patient Total time spent providing and/or coordinating discharge services: - Constitutional Vitals: Temp Pulse Resp BP Pulse Ox 97.8 F 87 16 132/77 98 01/15/17 07:10 01/15/17 07:10 01/15/17 07:10 01/15/17 07:10 01/15/17 07:10 General appearance: Present: A&O X 3, no acute distress - Head Head exam: Present: atraumatic, normocephalic - Eye Eye exam: Present: PERRL, conjuntiva pink, sclera anicteric - Neck Neck exam general surgery: Present: supple, trachea midline. Absent: lymphadenopathy - Respiratory Respiratory exam: Present: CTAB. Absent: accessory muscle use, rales, rhonchi, wheezes - Cardiovascular Cardiovascular exam: Present: RRR, +S1, +S2. Absent: diastolic murmur, gallop, rubs, systolic murmur - GI/Abdominal GI/Abdominal exam: Present: normal bowel sounds, soft, no peritoneal signs. Absent: distended, tenderness - Extremities Exam Extremities exam: Present: warm, radial pulses palpable and symetrical. Absent : calf tenderness, cyanotic, pedal edema - Neurological Exam Neurological exam: Present: CN II-XII intact, oriented X3, no focal deficits. Absent: pronater drift, facial droop, speech deficit - Skin Skin exam: Present: dry, intact Additional comments: lipoma right upper back - VTE Documentation of Mechanical Device: Intermittent pneumatic compression device <Brice Faith P - Last Filed: 01/15/17 17:35> Date of Encounter: 01/15/17 Procedures/tests Complete & Pending: Procedures Performed prior 72 hours Category Date Time Status ECG 12 lead ECG [ECG] Routine Y 01/13/17 13:42 Completed EV echocardiogram w enhance Routine Y 01/13/17 19:33 Completed Date of admission: 01/13/17 17:27 Primary care physician: Fabrizio Campbell MD Consults: 01/13/17 17:29 Consult to Cardiology [CONS] Routine Comment: Consulting Provider: Cardiology [place] Reason for Consult: Please evaluate this patient followed by Dr. Johnson presenting with symptoms of CHF exacerbation. Call Completed: No Hospital course: Mr. Sanchez is a 86 year old male - Time Spent with Patient Total time spent providing and/or coordinating discharge services: - Constitutional Vitals: Temp Pulse Resp BP Pulse Ox 97.8 F 87 16 132/77 98 01/15/17 07:10 01/15/17 07:10 01/15/17 07:10 01/15/17 07:10 01/15/17 07:10 - Attending Attestation I examined this patient and my medical decision-making was reviewed with the [employer] SUPERVISOR/PA/Advanced Practice Nurse/Resident Physician. I agree with the documented findings, disposition and treatment plan as described except to the extent set forth below.
[2017-01-15] MEDS ORDERED: Aminoglycoside Consult 1 EACH MC ONE (13:09)
[2017-01-15] MEDS ORDERED: *HR* Warfarin 5 MG TABLET PO ONE (18:00)
[2017-01-15] MEDS ORDERED: *HR* Warfarin 5 MG TABLET PO SCH (18:00)
--- NOTE | 2017-01-15 18:28 | Electrocardiograph Report ---
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
== END 2017-01-15 13:10 | disposition home or self-care (01) | DRG 291 ==
LOC: 2NENU 13:25 → EMEROO 13:25 → 2NENU 16:08
PROVIDERS: ADMIT Internal Medicine Endocrinology, Diabetes & Metabolism; ATTEND Internal Medicine

== ENCOUNTER 2017-04-29 08:36 | Observation (INO) ==
[2017-04-29] MEDS ORDERED: Aspirin 81 MG TAB.CHEW PO STA (09:16)
[2017-04-29 10:00] LABS: Calcium 9.1 mg/dL (8.6-10.8); Potassium 4.9 mEq/L (3.5-4.5)
--- NOTE | 2017-04-29 10:11 | Emergency Department Note ---
Disposition Clinical Impression: Shortness of breath, Pleural effusion, Hyperkalemia CHF (congestive heart failure) Qualifiers: Congestive heart failure type: unspecified congestive heart failure type Congestive heart failure chronicity: acute on chronic Qualified Code(s): I50.9 - Heart failure, unspecified Disposition: Admitted As Inpatient Condition: Fair Time of Disposition: 13:25 General Adult HPI - General Chief complaint: ED Shortness of Breath/Dyspnea Stated complaint: ISABELLE Hx CHF Time Seen by Provider: 04/29/17 09:14 Source: patient, family Limitations: no limitations Nursing Notes Reviewed: Yes Vital Signs Reviewed: Yes - History of Present Illness HPI Narrative: Patient is an 87 year old male who presents the emergency department with 2 weeks of shortness of breath. He states that this is progressively gotten worse. Last night he tried taking an extra dose of Lasix per recommendation of his primary care doctor and this did not seem to help. Patient states that his shortness of breath becomes worse when he lays flat or if he walks greater than 10 feet. He is normally on 3-1/2 L of oxygen at home. Patient denies any chest pain, nausea, vomiting or diaphoresis. Patient's daughter was present in the room and states that she feels like he is doing much worse than normal and that this is very similar to previous hospitalizations for his congestive heart failure. Patient also states that he feels that this is very similar to his congestive heart failure and that he just needs IV Lasix. Pain Scale: 0 - Related Data Home Medications Medication Instructions Recorded Confirmed Cholecalciferol (D-3) [Vitamin D] 2,000 unit PO DAILY 01/13/17 04/29/17 Clopidogrel [Plavix] 75 mg PO DAILY 01/13/17 04/29/17 Docusate [Colace] 100 mg PO BID 01/13/17 04/29/17 Finasteride [Proscar] 5 mg PO DAILY 01/13/17 04/29/17 Furosemide [Lasix] 40 mg PO DAILY 01/13/17 04/29/17 Insulin ASPART [NovoLOG] 20 - 25 unit SQ TID 01/13/17 04/29/17 Insulin NPH Human Isophane 15 unit SQ BID 01/13/17 04/29/17 [Novolin N] Levothyroxine [Synthroid] 150 mcg PO QAM 01/13/17 04/29/17 Lisinopril [Zestril] 40 mg PO BID 01/13/17 04/29/17 Metoprolol Succinate 100 mg PO DAILY 01/13/17 04/29/17 Simvastatin [Zocor] 20 mg PO HS 01/13/17 04/29/17 Warfarin [Coumadin] 5 mg PO SUMOWETHSA 04/29/17 04/29/17 Warfarin [Coumadin] 7.5 mg PO TUFR 04/29/17 04/29/17 Allergies Allergy/AdvReac Type Severity Reaction Status Date / Time No Known Allergies Allergy Verified 01/13/17 13:32 All systems ED: reviewed and negative except as stated. Cardiovascular: Denies: chest pain, palpitations Respiratory: Reports: dyspnea Gastrointestinal: Denies: abdominal pain, nausea, vomiting Genitourinary: Denies: urgency, dysuria, frequency Past Medical History - Past Medical History Medical history: Reports: atrial fibrillation, cardiomyopathy, CHF, coronary artery disease, diabetes, hypertension, myocardial infarction, renal disease Surgical history: Reports: coronary bypass (CABG), AICD, pacemaker Psychiatric history: Reports: no psych history - Social History Smoking Status: Former smoker Smokeless Tobacco Status: No Alcohol use: Reports: none Drug use: Reports: none Physical Exam - General Limitations: no limitations General appearance: alert, in no apparent distress - Head Head exam: atraumatic, normocephalic - Neck Neck exam: Present: normal inspection, full ROM, trachea midline - Respiratory Respiratory exam: Present: other (Patient decreased breath sounds bilaterally with a mild wheeze in the left lower lobe) - Cardiovascular Cardiovascular exam: Present: regular rate, normal rhythm, normal heart sounds, +S1, +S2 - Abdominal Exam Abdominal exam: Present: soft, Non-Tender, normal bowel sounds - Extremities Exam Extremities exam: Present: other (2+ pitting edema in the bilateral lower extremities) - Neurological Exam Neurological exam: Present: alert, oriented X3 - Psychiatric Psychiatric exam: Present: normal affect, normal mood - Skin Skin exam: Present: warm, dry, intact Course - Consultations Consultation #1: I spoke with Dr. Williamson the hospitalist and he has accepted the patient to his services. The patient will be admitted to the hospital. Time: 12:47 Vital Signs Temperature 97.6 F 04/29/17 08:44 Pulse Rate 94 04/29/17 08:44 Respiratory Rate 20 04/29/17 08:44 Blood Pressure 121/70 04/29/17 08:44 O2 Sat by Pulse Oximetry 93 04/29/17 08:44 Temperature 97.6 F 04/29/17 08:44 Pulse Rate 98 04/29/17 13:10 Respiratory Rate 20 04/29/17 13:56 Blood Pressure 136/65 04/29/17 13:56 O2 Sat by Pulse Oximetry 93 04/29/17 13:10 Oxygen Delivery Oxygen Delivery Nasal Cannula Medical Decision Making - MDM Narrative Medical decision making narrative: Due to the patient having gradual onset of worsening of his shortness of breath and a history of congestive heart failure we have ordered a BMP, BNP and a hemoglobin. Patient has an elevated creatinine of 1.8 and an elevated BNP of 740. Patient had an elevated potassium of 4.9 but this will not be treated at this time. Hemoglobin of 12.1 which seems to be normal for this patient. A troponin was not ordered on this patient due to there being a prolonged onset of the patient's shortness of breath and the patient did not have any chest pain on exam. The patient also stated that this is very typical of what his CHF exacerbations feels like as well as the patient's daughter stating that this is just like his previous CHF exacerbation. His shortness of breath is also made worse by laying back or walking a short distance. This is suggestive of congestive heart failure. The chest x-ray showed a pleural effusions bilaterally, Enlarged cardiac silhouette with mild prominence of the pulmonary vasculature.. Patient was also given 40 of IV Lasix. He states that this provided little relief and is still short of breath. The patient will be admitted to the hospital for likely CHF exacerbation. I have spoken with Dr. Williamson and he has accepted the patient to his services. The patient will be admitted to the hospital. - Lab Data Lab results reviewed: Yes I reviewed the patient's lab results. Result diagrams: 04/29/17 09:33 04/29/17 09:33 Lab Results 04/29/17 04/29/17 04/29/17 Range/Units 09:33 09:33 09:33 Hgb 12.1 L (12.9-16.9) g/dL Sodium 136 (136-145) mEq/L Potassium 4.9 H (3.5-4.5) mEq/L Chloride 97 L (98-109) mEq/L Carbon Dioxide 32 H (19-29) mEq/L BUN 33 H (8-26) mg/dL Creatinine 1.80 H (0.72-1.25) mg/dL Est GFR ( Amer) 44 L (> 60) Est GFR (Non-Af Amer) 36 L (> 60) BUN/Creatinine Ratio 18 (6-26) Glucose 323 H (70-99) mg/dL Calculated Osmolality 302 H (280-300) Calcium 9.1 (8.6-10.8) mg/dL B-Natriuretic Peptide 740 H (0-100) pg/mL - Radiology Data Radiology results reviewed: Yes I reviewed the patient's radiology results. Chest X-Ray 04/29/17 09:15 IMPRESSION: 1. Enlarged cardiac silhouette with mild prominence of the pulmonary vasculature. 2. Small right and moderate left pleural effusions. D/ / Wilian Shaw MD / Wilian Shaw MD Interpreting Provider: Wilian Shaw MD - EKG Data EKG #1 EKG attestation: Yes I reviewed and interpreted this EKG. EKG results narrative: Patient's EKG showed a ventricular paced rhythm at a rate of 85 bpm, QRS amish of 142, QTC of 433. Attestation Statement - Attestation Attestation: I examined this patient and my medical decision-making was reviewed with the Resident Physician. I agree with the documented findings, disposition and treatment plan as described except to the extent set forth below. Gradual worsening of chronic HF symptoms. No chest pain. No fever. Classic HF sx including BRAN, orthopnea. Mild progression of CKD with creat up to 1.8. No improvement after diuresis in ED. Agree with admission.
[2017-04-29] MEDS ORDERED: Furosemide 40 MG/4 ML VIAL IVP ONE (10:13)
[2017-04-29] MEDS ORDERED: Acetaminophen 325 MG TABLET PO PRN (19:55)
[2017-04-29] MEDS ORDERED: Naloxone 0.4 MG/ML INJ IVP PRN (19:55)
[2017-04-29] MEDS ORDERED: *HR* Warfarin 5 MG TABLET PO SCH (20:00)
--- NOTE | 2017-04-29 20:15 | Internal Med History&Physical ---
<Tri Carroll - Last Filed: 04/29/17 21:09> Date of Encounter: 04/29/17 Time of Encounter: 20:15 Assessment and Plan (1) Acute exacerbation of CHF (congestive heart failure) Current visit: Yes Status: Acute 1 patient's last echo 2016 showed EF 30% with severe LV dysfunction. He has been expressing increasing shortness of breath over the past 2 weeks and able to complete daily ADLs lower extremity swelling elevated BNP vascular congestion on chest x-ray. He was given IV Lasix which did improve his respiratory state. We will continue with Lasix 40 mg daily IV 2 monitor intake and output daily weight 3 low sodium diet 4 fluid restriction 1500 mL 5 continuous cardiac monitoring Qualifiers: Congestive heart failure type: systolic Qualified Code(s): I50.23 - Acute on chronic systolic (congestive) heart failure (2) Atrial fibrillation Current visit: No Status: Chronic 1 presently in paced rhythm. We will continue with Qualifiers: Atrial fibrillation type: paroxysmal Qualified Code(s): I48.0 - Paroxysmal atrial fibrillation (3) CAD (coronary artery disease) Current visit: No Status: Chronic 1 continue with Plavix and statin metoprolol lisinopril 2 continuous cardiac monitoring 3 nitroglycerin as needed for chest pain 4 continue with oxygen Qualifiers: Coronary Disease-Associated Artery/Lesion type: [place] artery [place] vs. transplanted heart: [place] heart Associated angina: without angina Qualified Code(s): I25.10 - Atherosclerotic heart disease of [place] coronary artery without angina pectoris (4) HTN (hypertension) Current visit: No Status: Chronic 1 continue with metoprolol and lisinopril 2 low sodium diet Qualifiers: Hypertension type: essential hypertension Qualified Code(s): I10 - Essential (primary) hypertension (5) Diabetes Current visit: No Status: Chronic 1 continue with Accu-Cheks before meals at bedtime with sliding scale as well as basal insulin 2 diabetic diet Qualifiers: Diabetes mellitus type: type 2 Diabetes mellitus complication status: without complication Diabetes mellitus mcfp insulin use: with [place] use Qualified Code(s): E11.9 - Type 2 diabetes mellitus without complications ; Z79.4 - buttermaker continuous churn (current) use of insulin (6) DVT prophylaxis Current visit: Yes Status: Chronic Patient is on Coumadin (7) Supratherapeutic INR Current visit: Yes Status: Acute 1 presently INR is 4.5. We will hold Coumadin tonight and recheck in a.m. Goal is to maintain INR 2.5-3 (8) Elevated troponin Current visit: Yes Status: Acute Troponin was 0.15. She needs chronically elevated at 0.8. Suspect this is troponin leak from CHF exacerbation as well as renal disease. We will continue to trend. If continue to elevate we will consult cardiology and obtain cardiac echo Internal Medicine - H&P: HPI Chief complaint: SOB Admitted From: Emergency Dept Plans for Post Hospital Care: Home History of present illness: Mr. Sanchez is a 87 year old male past medical history of CK D stage III diabetes hypertension coronary disease 2 vessel CABG 2 left heart catheter in 2012 I CMP status post ICD atrial fibrillation. According to the patient he has been expressing increasing shortness of breath for past 2 weeks. He has been unable to perform his daily ADLs. He is on continuous 3 L of oxygen at home. He has had lower extremity swelling he denies any weight gain. Last night he took an accident some Lasix per recommendation of his primary care physician however this did not seem to improve his respiratory state. He denies any chest pain nausea vomiting abdominal pain or diarrhea. Is brought to the ER for evaluation. According ER records lab work did reveal creatinine of 1.80 glucose is 323 BNP was 740 which is the high since then. Chest x-ray is indicative of CHF small right to moderate left pleural effusion. He was given 40 of Lasix and has been admitted for further work up evaluation. Presently the patient does not appear to be any respirator distress he states that he feels much better and has noticed that his swelling has decreased. He denies any chest pain this time. His lung sounds have some faint crackles in the bases bilaterally heart sounds are irregular S1 and S2 with no rubs clicks, murmurs noted abdomen is soft and nontender the has +1 pitting edema to lower strength bilaterally he is hematologic stable this time I reviewed this case with Dr. Hernandez Past Med Surg Social Fam HX - Past Medical History Medical history: atrial fibrillation, cardiomyopathy, CHF, coronary artery disease, diabetes, hypertension, myocardial infarction, renal disease Psychiatric history: no psych history - Past Surgical History Surgical History: coronary bypass (CABG), AICD, pacemaker - Social History Smoking Status: Former smoker Smokeless Tobacco Status: No Alcohol use: none Drug use: none - Family History Father Age: 68 Living Status: Age at : 68 Cause of : Heart attack Hx Family Cardiac Disorders: Yes Mother Age: 74 Living Status: Age at : 74 Cause of : heart attack Hx Family Cardiac Disorders: Yes Internal Medicine - H&P: Meds Cholecalciferol (D-3) [Vitamin D] 2,000 unit PO DAILY 01/13/17 [History] Clopidogrel [Plavix] 75 mg PO DAILY 01/13/17 [History] Docusate [Colace] 100 mg PO BID 01/13/17 [History] Finasteride [Proscar] 5 mg PO DAILY 01/13/17 [History] Furosemide [Lasix] 40 mg PO DAILY 01/13/17 [History] Insulin ASPART [NovoLOG] 20 - 25 unit SQ TID 01/13/17 [History] Insulin NPH Human Isophane [Novolin N] 15 unit SQ BID 01/13/17 [History] Levothyroxine [Synthroid] 150 mcg PO QAM 01/13/17 [History] Lisinopril [Zestril] 40 mg PO BID 01/13/17 [History] Metoprolol Succinate 100 mg PO DAILY 01/13/17 [History] Simvastatin [Zocor] 20 mg PO HS 01/13/17 [History] Warfarin [Coumadin] 5 mg PO SUMOWETHSA 04/29/17 [History] Warfarin [Coumadin] 7.5 mg PO TUFR 04/29/17 [History] 3 Allergy/AdvReac Type Severity Reaction Status Date / Time No Known Allergies Allergy Verified 01/13/17 13:32 All Systems PM: A 10-system review of systems was performed and is negative for pertinent findings except as documented above in the HPI. - Constitutional Constitutional: fatigue, no chills, no fever(s), no night sweats - EENT Eyes: no change in vision, no discharge, no pain, no photophobia Nose, mouth and throat: no dysphagia, no nasal discharge, no neck pain, no sore throat - Cardiovascular Cardiovascular ROS IM: dyspnea, dyspnea on exertion, edema, no chest pain, no diaphoresis, no lightheadedness, no palpitations, no syncope - Respiratory Respiratory: dyspnea, dyspnea on exertion - Gastrointestinal Gastrointestinal: no abdominal pain, no diarrhea, no hematemesis, no hematochezia, no melena, no nausea, no vomiting - Musculoskeletal Musculoskeletal ROS IM: no numbness, no tingling - Neurological Neurological ROS: no confusion, no convulsions, no focal weakness, no numbness, no tingling, no tremor(s) - Hematologic/Lymphatic Hematologic/Lymphatic: no easy bruising - Constitutional Vitals: Temp Pulse Resp BP Pulse Ox 97.7 F 82 16 129/70 95 04/29/17 20:03 04/29/17 20:03 04/29/17 20:03 04/29/17 20:03 04/29/17 20:03 General appearance: Present: A&O X 3, answers questions appropriately - Head Head exam: Present: atraumatic, normocephalic - Eye Eye exam: Present: PERRL, conjuntiva pink, sclera anicteric Pupils: Present: PERRL - Neck Neck exam general surgery: Present: supple, trachea midline. Absent: lymphadenopathy - Respiratory Respiratory exam: Present: rales. Absent: accessory muscle use, rhonchi, wheezes - Cardiovascular Cardiovascular exam: Present: irregular rhythm, +S1, +S2. Absent: diastolic murmur, gallop, rubs, systolic murmur - GI/Abdominal GI/Abdominal exam: Present: normal bowel sounds, soft, no peritoneal signs. Absent: distended, tenderness - Extremities Exam Extremities exam: Present: warm, radial pulses palpable and symmetrical. Absent : calf tenderness, cyanotic, pedal edema - Neurological Exam Neurological exam: Present: CN II-XII intact, oriented X3, no focal deficits. Absent: pronater drift, facial droop, speech deficit - Skin Skin exam: Present: dry, intact Internal Med - H&P Results - Labs CBC & Chem 7: 04/29/17 20:12 04/29/17 09:33 - EKG Data EKG comments: 04/29/17 20:38 V paced - Diagnostic Studies Other Images Additional comments: Chest X-Ray 04/29/17 09:15 IMPRESSION: 1. Enlarged cardiac silhouette with mild prominence of the pulmonary vasculature. 2. Small right and moderate left pleural effusions. D/ / Wilian Shaw MD / Wilian Shaw MD Interpreting Provider: Wilian Shaw MD <Heber Hernandez - Last Filed: 04/30/17 00:08> Date of Encounter: 04/29/17 Time of Encounter: 23:35 - Constitutional Vitals: Temp Pulse Resp BP Pulse Ox 98.1 F 84 16 137/77 95 04/29/17 23:03 04/29/17 23:03 04/29/17 23:03 04/29/17 23:03 04/29/17 23:03 General appearance: Present: cooperative, A&O X 3, pleasant, no acute distress - Neck Neck exam general surgery: Present: full ROM, supple - Expanded Neck Exam Neck exam: Absent: carotid bruit - Respiratory Respiratory exam: Present: rales. Absent: chest wall tenderness, rhonchi, wheezes - Cardiovascular Cardiovascular exam: Present: irregular rhythm, +S1, +S2. Absent: JVD - GI/Abdominal GI/Abdominal exam: Present: soft. Absent: tenderness - Extremities Exam Extremities exam: Present: full ROM, pedal edema (1+). Absent: joint swelling, tenderness - Back Exam Back exam: Absent: CVA tenderness (L), CVA tenderness (R) - Psychiatric Psychiatric exam: Present: normal affect, normal mood - Skin Skin exam: Present: dry, warm Internal Med - H&P Results - Labs CBC & Chem 7: 04/29/17 20:12 04/29/17 09:33 Labs: Short CBC 04/29/17 Range/Units 20:12 WBC 5.3 (4.3-11.1) K/mcL Hgb 11.4 L (12.9-16.9) g/dL Hct 35.9 L (37.5-50.1) % Plt Count 168 (140-400) K/mcL Neutrophils # 3.7 (1.6-8.9) K/mcL Cardiac Enzymes 04/29/17 Range/Units 20:12 Troponin I 0.15 H* (0-0.03) ng/mL - EKG Data -: EKG Interpreted by Myself (ventricular paced) - Diagnostic Studies Chest x-ray Status: image reviewed by me (left plueral effusion, cardiomegaly, and findings c/w CHF) - Attending Attestation I discussed the patient BEAVER, PMH, ROS, lab data, and exam findings with Tri Carroll CNP. I then saw and examined him independently as well. Patient states he s feeling much better already since receiving IV lasix. He has diuresed quite a bit per patient recollection. He notes increasing edema the last few days along with worsening SOB. He denies CP. He denies any bleeding episodes, especially given that his INR is elevated. He denies any change in diet or excessive salt intake. I suspect his troponin elevation is due to CHF, but we will cycle troponins nonetheless. Other than my comments above and noted exam findings, I agree with Tri's assessment and plan.
[2017-04-29 20:22] LABS: Basophils % 0.2 %; Eosinophils % 0.6 %; Hematocrit 35.9 % (37.5-50.1); Hemoglobin 11.4 g/dL (12.9-16.9); Immature Granulocytes % 0.4 % (0-4); Lymphocytes # 1.2 K/mcL (0.6-4.6); Lymphocytes % 22.8 %; Mean Corpuscular HGB Conc 31.8 g/dL (31.6-35.5); Mean Corpuscular Hemoglobin 30.6 pg (28.0-33.3); Mean Corpuscular Volume 96.2 fL (83.0-100.0); Mean Platelet Volume 9.4 fL (9.4-12.4); Monocytes # 0.4 K/mcL (0.0-1.3); Monocytes % 6.8 %; Neutrophils # 3.7 K/mcL (1.6-8.9); Platelet Count 168 K/mcL (140-400); Red Blood Count 3.73 M/mcL (4.19-5.50); Red Cell Distribution Width 13.5 % (11.5-14.5); Segmented Neutrophils % 69.2 %
[2017-04-29 20:32] LABS: Prothrombin Time 50.5 Seconds (9.4-12.1)
[2017-04-29 20:33] LABS: INR 4.5
[2017-04-29] MEDS: Lisinopril 20 MG TABLET PO SCH (21:11)
[2017-04-29] MEDS: Insulin NPH 100 UNIT/ML (x5UNIT) SQ SCH (21:34)
[2017-04-30 02:05] LABS: Basophils % 0.2 %; Eosinophils # 0.1 K/mcL (0.0-0.6); Eosinophils % 0.9 %; Hematocrit 36.9 % (37.5-50.1); Hemoglobin 11.5 g/dL (12.9-16.9); Immature Granulocytes % 0.6 % (0-4); Lymphocytes # 1.3 K/mcL (0.6-4.6); Lymphocytes % 23.5 %; Mean Corpuscular HGB Conc 31.2 g/dL (31.6-35.5); Mean Corpuscular Hemoglobin 30.4 pg (28.0-33.3); Mean Corpuscular Volume 97.6 fL (83.0-100.0); Mean Platelet Volume 9.4 fL (9.4-12.4); Monocytes # 0.4 K/mcL (0.0-1.3); Monocytes % 8.3 %; Neutrophils # 3.5 K/mcL (1.6-8.9); Platelet Count 169 K/mcL (140-400); Red Blood Count 3.78 M/mcL (4.19-5.50); Red Cell Distribution Width 13.5 % (11.5-14.5); Segmented Neutrophils % 66.5 %
[2017-04-30 02:20] LABS: Calcium 8.9 mg/dL (8.6-10.8); Chol/HDL Ratio 2.2 (0-4.9); Magnesium 2.1 mg/dL (1.6-2.6); Potassium 4.5 mEq/L (3.5-4.5)
[2017-04-30] MEDS: Finasteride 5 MG TABLET PO SCH (08:15)
[2017-04-30] MEDS: Metoprolol XL (24 HR) Succ 50 MG TAB.ER.24H PO SCH (08:15)
[2017-04-30] MEDS: Lisinopril 20 MG TABLET PO SCH ×2 (08:15→22:29)
[2017-04-30] MEDS: Furosemide 40 MG/4 ML VIAL IVP SCH (08:16)
[2017-04-30] MEDS: Insulin NPH 100 UNIT/ML (x5UNIT) SQ SCH ×2 (08:28→22:29)
[2017-04-30 09:21] LABS: INR 2.7; Prothrombin Time 29.5 Seconds (9.4-12.1)
[2017-04-30] MEDS ORDERED: *HR* Dextrose 50 % in Water (Syg) 50 ML SYRINGE IVP PRN (11:02)
[2017-04-30] MEDS ORDERED: D5% in Water 1,000 ML IVC PRN (11:02)
[2017-04-30] MEDS ORDERED: Dextrose Gel 15 GM PO PRN ×2 (11:02)
[2017-04-30] MEDS ORDERED: Insulin LISPRO 300 UNITS/3 ML VIAL SQ SCH ×3 (11:30→21:00)
--- NOTE | 2017-04-30 13:20 | Internal Med Progress Note ---
Date of Encounter: 04/30/17 Time of Encounter: 13:14 - Assessment and plan (1) Acute exacerbation of CHF (congestive heart failure) Current Visit: Yes Status: Acute Assessment and plan: Last 2D echo was on 01/13/17: LVEF of 30% with severe LV systolic dysfunction will continue IV diuresis will increase patient's home lasix dose upon discharge O2 supplementation monitor I/Os, daily weight fluid restriction diet will continue to closely monitor Qualifiers: Congestive heart failure type: systolic Qualified Code(s): I50.23 - Acute on chronic systolic (congestive) heart failure (2) Atrial fibrillation Current Visit: No Status: Chronic Assessment and plan: Rate controlled with BB anticoagulated with Coumadin Qualifiers: Atrial fibrillation type: paroxysmal Qualified Code(s): I48.0 - Paroxysmal atrial fibrillation (3) HTN (hypertension) Current Visit: No Status: Chronic Assessment and plan: BP within acceptable range continue home medications Qualifiers: Hypertension type: essential hypertension Qualified Code(s): I10 - Essential (primary) hypertension (4) Diabetes Current Visit: No Status: Chronic Assessment and plan: Noted to remain persistently hyperglycemic increased to medium dose insulin sliding scale algorithm will adjust home insulin dose as per insulin requirements f/u HbA1C monitor FS and BG ADA diet Qualifiers: Diabetes mellitus type: type 2 Diabetes mellitus complication status: without complication Diabetes mellitus halfway insulin use: with halfway use Qualified Code(s): E11.9 - Type 2 diabetes mellitus without complications ; Z79.4 - assisted (current) use of insulin (5) Elevated troponin Current Visit: Yes Status: Chronic Assessment and plan: Pt has history of chronically elevated TNI denies any signs of angina at this time (6) CKD (chronic kidney disease) Current Visit: No Status: Chronic Assessment and plan: renal function appears to be at baseline will continue to monitor Qualifiers: Chronic kidney disease stage: stage 3 (moderate) Qualified Code(s): N18.3 - Chronic kidney disease, stage 3 (moderate) (7) DVT prophylaxis Current Visit: Yes Status: Chronic Assessment and plan: Heparin SQ (8) Supratherapeutic INR Current Visit: Yes Status: Resolved Assessment and plan: resolved will resume coumadin pharmacy to dose coumadin goal INR: 2-3 - Subjective Interval history: Patient seen and examined with daughter present at bedside. Patient reports of feeling significantly better since his hospitalization. He is sitting in chair and breathing comfortably on nasal cannula. Patient's daughter is concerned about his recurrent CHF exacerbations. Dietary and med compliance counseling is provided. - Constitutional Vitals: Temp Pulse Resp BP Pulse Ox 98.1 F 87 18 124/76 96 04/30/17 11:23 04/30/17 11:23 04/30/17 11:23 04/30/17 11:23 04/30/17 11:23 General appearance: Present: cooperative, A&O X 3, pleasant, no acute distress - Head Head exam: Present: atraumatic, normocephalic - Eye Eye exam: Present: normal appearance, conjuntiva pink, sclera anicteric - Respiratory Respiratory exam: Absent: rales, respiratory distress, wheezes - Cardiovascular Cardiovascular exam: Present: RRR, +S1, +S2. Absent: diastolic murmur, gallop, rubs, systolic murmur - GI/Abdominal GI/Abdominal exam: Present: normal bowel sounds, soft, no peritoneal signs. Absent: distended, tenderness - Extremities Exam Extremities exam: Present: pedal edema, warm, radial pulses palpable and symmetrical. Absent: calf tenderness - Neurological Exam Neurological exam: Present: alert, oriented X3 - Psychiatric Psychiatric exam: Present: normal affect, normal mood Internal Medicine: Result - Labs CBC & Chem 7: 04/30/17 01:21 04/30/17 01:21 Labs: Short CBC 04/29/17 04/30/17 Range/Units 20:12 01:21 WBC 5.3 5.3 (4.3-11.1) K/mcL Hgb 11.4 L 11.5 L (12.9-16.9) g/dL Hct 35.9 L 36.9 L (37.5-50.1) % Plt Count 168 169 (140-400) K/mcL Neutrophils # 3.7 3.5 (1.6-8.9) K/mcL BMP 04/30/17 01:21 Sodium 140 Potassium 4.5 Chloride 99 Carbon Dioxide 38 H BUN 30 H Creatinine 1.89 H Glucose 150 H Calcium 8.9 Cardiac Enzymes 04/29/17 04/30/17 04/30/17 Range/Units 20:12 01:21 07:54 Troponin I 0.15 H* 0.15 H* 0.16 H* (0-0.03) ng/mL - ABG Interpretation ABG results: PT/INR, D-dimer PT 29.5 Seconds (9.4-12.1) H 04/30/17 08:41 Consult Discharge Plan - Plan Referrals: Fabrizio Campbell MD [Primary Care Provider] -
[2017-04-30] MEDS: Insulin LISPRO 300 UNITS/3 ML VIAL SQ SCH (17:31)
[2017-04-30] MEDS ORDERED: Warfarin perPT PO PRN (18:00)
[2017-04-30] MEDS ORDERED: *HR* Warfarin 3 MG TABLET PO ONE (18:00)
[2017-04-30] MEDS ORDERED: *HR* Warfarin 7.5 MG TABLET PO SCH (20:00)
[2017-05-01 06:42] LABS: Basophils % 0.2 %; Eosinophils % 0.9 %; Hematocrit 36.6 % (37.5-50.1); Hemoglobin 11.7 g/dL (12.9-16.9); Immature Granulocytes % 0.2 % (0-4); Lymphocytes # 1.1 K/mcL (0.6-4.6); Lymphocytes % 24.4 %; Mean Corpuscular Hemoglobin 31.3 pg (28.0-33.3); Mean Corpuscular Volume 97.9 fL (83.0-100.0); Mean Platelet Volume 9.7 fL (9.4-12.4); Monocytes # 0.4 K/mcL (0.0-1.3); Monocytes % 8.8 %; Platelet Count 158 K/mcL (140-400); Red Blood Count 3.74 M/mcL (4.19-5.50); Red Cell Distribution Width 13.5 % (11.5-14.5); Segmented Neutrophils % 65.5 %
[2017-05-01 06:45] LABS: INR 1.8; Prothrombin Time 19.1 Seconds (9.4-12.1)
[2017-05-01 06:55] LABS: Calcium 8.8 mg/dL (8.6-10.8); Potassium 4.1 mEq/L (3.5-4.5)
[2017-05-01 07:08] VITALS: BP 150/79
[2017-05-01] MEDS: Finasteride 5 MG TABLET PO SCH (07:58)
[2017-05-01] MEDS: Furosemide 40 MG/4 ML VIAL IVP SCH (07:58)
[2017-05-01] MEDS: Metoprolol XL (24 HR) Succ 50 MG TAB.ER.24H PO SCH (07:58)
[2017-05-01] MEDS: Lisinopril 20 MG TABLET PO SCH (07:58)
[2017-05-01] MEDS: Insulin LISPRO 300 UNITS/3 ML VIAL SQ SCH (08:00)
[2017-05-01] MEDS: Insulin NPH 100 UNIT/ML (x5UNIT) SQ SCH (09:26)
--- NOTE | 2017-05-01 09:58 | Discharge Summary ---
Date of Encounter: 05/01/17 Time of Encounter: 09:58 - Discharge Diagnosis (1) Acute exacerbation of CHF (congestive heart failure) Priority: Primary Status: Acute Qualifiers: Congestive heart failure type: systolic Qualified Code(s): I50.23 - Acute on chronic systolic (congestive) heart failure (2) Atrial fibrillation Priority: Secondary Status: Chronic Qualifiers: Atrial fibrillation type: paroxysmal Qualified Code(s): I48.0 - Paroxysmal atrial fibrillation (3) HTN (hypertension) Priority: Secondary Status: Chronic Qualifiers: Hypertension type: essential hypertension Qualified Code(s): I10 - Essential (primary) hypertension (4) Diabetes Priority: Secondary Status: Chronic Qualifiers: Diabetes mellitus type: type 2 Diabetes mellitus complication status: without complication 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 insulin use: with long-term use Qualified Code(s): E11.9 - Type 2 diabetes mellitus without complications ; Z79.4 - exterminator helper termite (current) use of insulin (5) Elevated troponin Priority: Secondary Status: Chronic (6) CKD (chronic kidney disease) Priority: Secondary Status: Chronic Qualifiers: Chronic kidney disease stage: stage 3 (moderate) Qualified Code(s): N18.3 - Chronic kidney disease, stage 3 (moderate) (7) DVT prophylaxis Priority: Secondary Status: Chronic (8) Supratherapeutic INR Priority: Secondary Status: Resolved - Discharge Medications Prescriptions: Furosemide [Lasix] 40 mg PO BID #30 Home Medications: Cholecalciferol (D-3) [Vitamin D] 2,000 unit PO DAILY 01/13/17 [History] Clopidogrel [Plavix] 75 mg PO DAILY 01/13/17 [History] Docusate [Colace] 100 mg PO BID 01/13/17 [History] Finasteride [Proscar] 5 mg PO DAILY 01/13/17 [History] Insulin ASPART [NovoLOG] 20 - 25 unit SQ TID 01/13/17 [History] Insulin NPH Human Isophane [Novolin N] 15 unit SQ BID 01/13/17 [History] Levothyroxine [Synthroid] 150 mcg PO QAM 01/13/17 [History] Lisinopril [Zestril] 40 mg PO BID 01/13/17 [History] Metoprolol Succinate 100 mg PO DAILY 01/13/17 [History] Simvastatin [Zocor] 20 mg PO HS 01/13/17 [History] Warfarin [Coumadin] 5 mg PO SUMOWETHSA 04/29/17 [History] Warfarin [Coumadin] 7.5 mg PO TUFR 04/29/17 [History] Furosemide [Lasix] 40 mg PO BID #30 05/01/17 [Rx] Allergies/Adverse Reactions: 3 Allergy/AdvReac Type Severity Reaction Status Date / Time No Known Allergies Allergy Verified 01/13/17 13:32 Date of admission: 04/29/17 13:16 Primary care physician: Fabrizio Campbell MD Consults: 04/29/17 19:59 Consult to Physical Therapy [CONS] Routine Comment: Evaluate, develop and implement POC Reason for Consult: difficulty ambulating dt deconditioning 04/30/17 07:37 OT [Consult to Occupational Therapy] [CONS] Routine Comment: Evaluate, develop and implement POC Reason for Consult: discharge planning 04/30/17 09:15 Consult to Sales Producer [CONS] Routine Reason for SW Consult: discharge planning Discharging clinician: Giovanna Myles Anticipated date of discharge: 05/01/17 - Patient Status Disposition: Home Health Service Condition: Good Functional capacity at discharge: uses cane/walker Overall status at discharge: patient is back to baseline - Discharge Instructions Follow Up With: Fabrizio Campbell MD [Primary Care Provider] - Additional Instructions: Please follow up with your primary care physician and manager route within one week after your discharge from the hospital. Your home dose of Lasix has been increased to 40mg twice a day. please take this medication as prescribed. Please adhere to a fluid restriction diet. Please follow up with your PCP/coumadin clinic and closely monitor your INR levels weekly. Resume all your other home medications as prescribed by your primary care physician. - Diet and Activity Activity: resume usual activities as tolerated, wear oxygen at all times, wear oxygen at night Diet: diabetic diet, low salt diet Hospital course: Mr. Sanchez is a 87 year old male with PMH of CHF, CKD stage III, Afib on coumadin, CAD who was admitted for CHF exacerbation. He was started on IV diuresis and fluid restriction diet to which he responded appropriately. He reports of feeling significantly better and is currently saturating well on nasal cannula at his baseline O2. His home dose of lasix will be increased upon discharge. He is hemodynamically stable and will be discharged to home today with follow up with his PCP and manager route. He was noted to have supratherapeutic INR upon arrival which has now resolved. Pt is to follow up with coumadin clinic. Pt demonstrates understanding of his diagnosis and agrees with the discharge care and plan. - Time Spent with Patient Total time spent providing and/or coordinating discharge services: Less than 30 minutes - Constitutional Vitals: Temp Pulse Resp BP Pulse Ox 97.5 F L 79 17 150/79 96 05/01/17 06:57 05/01/17 06:57 05/01/17 06:57 05/01/17 06:57 05/01/17 06:57 General appearance: Present: cooperative, A&O X 3, morbidly obese, pleasant, no acute distress - Head Head exam: Present: atraumatic, normocephalic - Eye Eye exam: Present: conjuntiva pink, sclera anicteric - Respiratory Respiratory exam: Present: CTAB. Absent: respiratory distress, wheezes - Cardiovascular Cardiovascular exam: Present: RRR, +S1, +S2. Absent: diastolic murmur, gallop, rubs, systolic murmur - GI/Abdominal GI/Abdominal exam: Present: normal bowel sounds, soft, no peritoneal signs. Absent: distended, tenderness - Extremities Exam Extremities exam: Present: pedal edema, warm, radial pulses palpable and symmetrical. Absent: calf tenderness - Neurological Exam Neurological exam: Present: alert, oriented X3 - Psychiatric Psychiatric exam: Present: normal affect, normal mood - VTE Documentation of Mechanical Device: Intermittent pneumatic compression device
[2017-05-01 10:09] LABS: Hemoglobin A1C 7.7 %
--- NOTE | 2017-05-01 10:31 | Physician Discharge Referral ---
Home Health/Hosp Referral Info Transfer to: Home Health Provider in Charge Post Discharge: PCP - Diagnosis (1) Acute exacerbation of CHF (congestive heart failure) Priority: Primary Status: Acute (2) Atrial fibrillation Priority: Secondary Status: Chronic (3) HTN (hypertension) Priority: Secondary Status: Chronic (4) Diabetes Priority: Secondary Status: Chronic (5) Elevated troponin Priority: Secondary Status: Chronic (6) CKD (chronic kidney disease) Priority: Secondary Status: Chronic (7) DVT prophylaxis Priority: Secondary Status: Chronic (8) Supratherapeutic INR Priority: Secondary Status: Resolved - Respiratory Orders Smoking Cessation: Smoking cessation has been advised. For more information, call the [place] Tobacco Quit Line at 9-325-UGAK-NOW. - Services Needed Following services are medically necessary services: Nursing, Home Health Aide, Physical Therapy, Occupational Therapy - Transfer Medications Prescriptions: Furosemide [Lasix] 40 mg PO BID #30 Home Medications: Cholecalciferol (D-3) [Vitamin D] 2,000 unit PO DAILY 01/13/17 [History] Clopidogrel [Plavix] 75 mg PO DAILY 01/13/17 [History] Docusate [Colace] 100 mg PO BID 01/13/17 [History] Finasteride [Proscar] 5 mg PO DAILY 01/13/17 [History] Insulin ASPART [NovoLOG] 20 - 25 unit SQ TID 01/13/17 [History] Insulin NPH Human Isophane [Novolin N] 15 unit SQ BID 01/13/17 [History] Levothyroxine [Synthroid] 150 mcg PO QAM 01/13/17 [History] Lisinopril [Zestril] 40 mg PO BID 01/13/17 [History] Metoprolol Succinate 100 mg PO DAILY 01/13/17 [History] Simvastatin [Zocor] 20 mg PO HS 01/13/17 [History] Warfarin [Coumadin] 5 mg PO SUMOWETHSA 04/29/17 [History] Warfarin [Coumadin] 7.5 mg PO TUFR 04/29/17 [History] Furosemide [Lasix] 40 mg PO BID #30 05/01/17 [Rx] Allergies/Adverse Reactions: 3 Allergy/AdvReac Type Severity Reaction Status Date / Time No Known Allergies Allergy Verified 01/13/17 13:32 Certification: Further, I certify that my clinical findings support that this patient is homebound (i.e. absences from home require considerable and taxing effort and are for medical reasons or bahai services or infrequently or short duration when for other reasons) because: Homebound Reason: Patient requires assistance of a person or device to safely leave home Attestation: My signature below is to certify that this patient is under my care and that I, or nurse practitioner, or a physician's pharmacy innovation assistant working with me, has a face-to -face encounter with this patient.
[2017-05-01] MEDS ORDERED: *HR* Warfarin 5 MG TABLET PO ONE (18:00)
--- NOTE | 2017-05-03 20:51 | Electrocardiograph Report ---
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
== END 2017-05-01 12:23 | disposition home health service (06) ==
LOC: EMEROO 08:36 → 3ANU 08:36
PROVIDERS: ADMIT Internal Medicine; ATTEND Internal Medicine

== ENCOUNTER 2017-06-25 15:57 | Inpatient (IN) ==
--- NOTE | 2017-06-25 16:31 | Emergency Department Note ---
Disposition Clinical Impression: NSTEMI (non-ST elevated myocardial infarction), Supratherapeutic INR Acute exacerbation of CHF (congestive heart failure) Qualifiers: Congestive heart failure type: systolic Qualified Code(s): I50.23 - Acute on chronic systolic (congestive) heart failure Disposition: Admitted As Inpatient Condition: Fair Time of Disposition: 18:15 General Adult HPI - General Chief complaint: ED Shortness of Breath/Dyspnea Stated complaint: CHF, congestion Time Seen by Provider: 06/25/17 16:07 Source: patient Mode of arrival: wheelchair Limitations: no limitations Nursing Notes Reviewed: Yes Vital Signs Reviewed: Yes - History of Present Illness HPI Narrative: Patient is an 87-year-old male with a past medical history of A. fib, cardiomyopathy, CHF, CAD, diabetes type 2 requiring insulin, CKD stage 3, hypertension, coronary artery bypass graft, and an renal disease presenting with department with 1 month long of shortness of breath that has been worsening and lower extremity edema. The patient states that he is discharged from the hospital in April for acute CHF exacerbation. He was seen by Dr. Anderson yesterday which she had a chest x-ray done showed have a large pleural effusion was told to come to the emergency department today for admission. Patient states he also has had a productive cough recently with brown sputum. He denies any fevers, chills, headache, nasal congestion, chest pain, back pain , abdominal pain, no nausea, no vomiting, diarrhea or recent sick contacts. Pain Scale: 0 - Related Data Home Medications Medication Instructions Recorded Confirmed Cholecalciferol (D-3) [Vitamin D] 2,000 unit PO DAILY 01/13/17 06/25/17 Clopidogrel [Plavix] 75 mg PO DAILY 01/13/17 06/25/17 Docusate [Colace] 100 mg PO BID 01/13/17 06/25/17 Finasteride [Proscar] 5 mg PO HS 01/13/17 06/25/17 Insulin ASPART [NovoLOG] 29 unit SQ TIDWM 01/13/17 06/25/17 Insulin NPH Human Isophane 20 unit SQ QAM 01/13/17 06/25/17 [Novolin N] Levothyroxine [Synthroid] 150 mcg PO QAM 01/13/17 06/25/17 Lisinopril [Zestril] 40 mg PO BID 01/13/17 06/25/17 Metoprolol Succinate 100 mg PO DAILY 01/13/17 06/25/17 Simvastatin [Zocor] 20 mg PO HS 01/13/17 06/25/17 Warfarin [Coumadin] 7.5 mg PO Q72H 04/29/17 06/25/17 Fluticasone Propionate Nasal 50 mcg NS DAILY PRN 06/25/17 06/25/17 [Flonase] Insulin NPH Human Isophane 15 unit SQ HS 06/25/17 06/25/17 [Novolin N] Oxymetazoline HCl [Afrin] 1 spray NS DAILY PRN 06/25/17 06/25/17 Previous Rx's Medication Instructions Recorded Furosemide [Lasix] 40 mg PO BID #30 05/01/17 Allergies Allergy/AdvReac Type Severity Reaction Status Date / Time No Known Allergies Allergy Verified 06/25/17 16:00 Review of Systems: Constitutional: No fever, ENT: No rhinorrhea Respiratory: chronic cough, new sputum production - brown and difficulty breathing Cardiac: No chest pain, no palpitations Allergic: No allergies : No changes, no difference in frequency GI: No blood in stool, no N/V/D Hematologic: No bruising Dermatologic: No skin rash Musculoskeletal: No pain in the extremities Neuro: No numbness of the extremities All systems ED: reviewed and negative except as stated. Review of Systems: As Per HPI Past Medical History - Past Medical History Medical history: Reports: atrial fibrillation, cardiomyopathy, CHF, coronary artery disease, diabetes, hypertension, myocardial infarction, renal disease Surgical history: Reports: coronary bypass (CABG), AICD, pacemaker Psychiatric history: Reports: no psych history - Social History Smoking Status: Former smoker Smokeless Tobacco Status: No Alcohol use: Reports: none Drug use: Reports: none Physical Exam CONSTITUTIONAL: Alert and oriented X3 and in no apparent distress. Patient vital signs are stable, he is 96% on 2L. Patient states he is on 2L at home. HEAD: Normocephalic; atraumatic. EYES: PERRL, no scleral icterus. NOSE: The nose is normal in appearance without rhinorrhea RESP: Patient breath sounds are course bilaterally and diminished on the left. CARD: rhythm is afib, rate in the 90's, without murmurs, rub or gallop ABD: Non-distended; non-tender, soft,without rigidity, rebound or guarding SKIN: Normal for age and race; warm and dry; no apparent lesions EXT: Bilateral lower extremity edema 1+ bilaterally. - General General appearance: alert, in no apparent distress Course Course Narrative: Patient is 87 year old gentleman with a past medical history significant for heart disease including CABG done 10 years ago, CHF, CKD, A. fib, cardiomyopathy , pacemaker, and diabetes requiring insulin presenting to the emergency department with complaint of worsening shortness of breath and lower extremity swelling. He was discharged from the hospital in April of 2017 for acute CHF exacerbation. She is saturating well on nasal cannula and his home dose of Lasix was increased. The patient states that he takes 40 mg of Lasix twice a day. 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 Patient' s physical exam today appreciate coarse breath sounds decreased on the left. Patient overall does appear to be having difficulty breathing. His lungs do sound coarse throughout and diminished on the left the patient also has lower extremity swelling. Plan is to do a cardiac workup on the patient. Then the patient will be admitted. - Reevaluation(s) Reevaluation #1: Patient's labs resulted. The patient has elevated troponin of 0.18, upon review of old labs patient's troponin is normally elevated at this 0.16 back in April of this year however this is the highest it has been. Patient also has elevated BNP. The patient's EKG showed paced rhythm at 85 beats per minutes unchanged from old. Patient was ordered IV Lasix and the plan is to admit to the hospitalist for acute CHF exacerbation, NSTEMI, and INR which is supratherapeutic. Time: 18:17 Vital Signs Temperature 97.6 F 06/25/17 16:01 Pulse Rate 84 06/25/17 16:01 Respiratory Rate 16 06/25/17 16:01 Blood Pressure 151/76 06/25/17 16:01 O2 Sat by Pulse Oximetry 96 06/25/17 16:01 Temperature 97.4 F L 06/26/17 11:14 Pulse Rate 86 06/26/17 11:14 Respiratory Rate 18 06/26/17 11:14 Blood Pressure 127/77 06/26/17 11:14 O2 Sat by Pulse Oximetry 97 06/26/17 11:57 Oxygen Delivery Oxygen Delivery Nasal Cannula Medical Decision Making - Medical Records Medical records reviewed: Yes I reviewed the patient's medical records. - Lab Data Lab results reviewed: Yes I reviewed the patient's lab results. Result diagrams: 06/26/17 05:23 06/26/17 05:23 Lab Results 06/25/17 06/25/17 06/25/17 Range/Units 17:17 17:17 17:17 WBC 4.9 (4.3-11.1) K/mcL RBC 3.68 L (4.19-5.50) M/mcL Hgb 11.5 L (12.9-16.9) g/dL Hct 36.5 L (37.5-50.1) % MCV 99.2 (83.0-100.0) fL MCH 31.3 (28.0-33.3) pg MCHC 31.5 L (31.6-35.5) g/dL RDW 14.0 (11.5-14.5) % Plt Count 157 (140-400) K/mcL MPV 9.2 L (9.4-12.4) fL Immature Gran % 0.2 (0-4) % Seg Neutrophils % 69.9 % Lymphocytes % 22.3 % Monocytes % 7.2 % Eosinophils % 0.4 % Basophils % 0.0 % Neutrophils # 3.4 (1.6-8.9) K/mcL Lymphocytes # 1.1 (0.6-4.6) K/mcL Monocytes # 0.4 (0.0-1.3) K/mcL Eosinophils # 0.0 (0.0-0.6) K/mcL Basophils # 0.0 (0.0-0.2) K/mcL PT (9.4-12.1) Seconds INR Sodium 140 (136-145) mEq/L Potassium 4.2 (3.5-4.5) mEq/L Chloride 100 (98-109) mEq/L Carbon Dioxide 34 H (19-29) mEq/L BUN 29 H (8-26) mg/dL Creatinine 1.62 H (0.72-1.25) mg/dL Est GFR ( Amer) 49 L (> 60) Est GFR (Non-Af Amer) 41 L (> 60) BUN/Creatinine Ratio 18 (6-26) Glucose 223 H (70-99) mg/dL POC Glucose (58-89) Calculated Osmolality 303 H (280-300) Lactic Acid 1.1 (0.5-2.2) mmol/L Calcium 8.9 (8.6-10.8) mg/dL Troponin I (0-0.03) ng/mL B-Natriuretic Peptide (0-100) pg/mL 06/25/17 06/25/17 06/25/17 Range/Units 17:17 17:17 17:17 WBC (4.3-11.1) K/mcL RBC (4.19-5.50) M/mcL Hgb (12.9-16.9) g/dL Hct (37.5-50.1) % MCV (83.0-100.0) fL MCH (28.0-33.3) pg MCHC (31.6-35.5) g/dL RDW (11.5-14.5) % Plt Count (140-400) K/mcL MPV (9.4-12.4) fL Immature Gran % (0-4) % Seg Neutrophils % % Lymphocytes % % Monocytes % % Eosinophils % % Basophils % % Neutrophils # (1.6-8.9) K/mcL Lymphocytes # (0.6-4.6) K/mcL Monocytes # (0.0-1.3) K/mcL Eosinophils # (0.0-0.6) K/mcL Basophils # (0.0-0.2) K/mcL PT 46.1 H* (9.4-12.1) Seconds INR 4.2 Sodium (136-145) mEq/L Potassium (3.5-4.5) mEq/L Chloride (98-109) mEq/L Carbon Dioxide (19-29) mEq/L BUN (8-26) mg/dL Creatinine (0.72-1.25) mg/dL Est GFR ( Amer) (> 60) Est GFR (Non-Af Amer) (> 60) BUN/Creatinine Ratio (6-26) Glucose (70-99) mg/dL POC Glucose (58-89) Calculated Osmolality (280-300) Lactic Acid (0.5-2.2) mmol/L Calcium (8.6-10.8) mg/dL Troponin I 0.18 H* (0-0.03) ng/mL B-Natriuretic Peptide 901 H (0-100) pg/mL 06/25/17 Range/Units 21:52 WBC (4.3-11.1) K/mcL RBC (4.19-5.50) M/mcL Hgb (12.9-16.9) g/dL Hct (37.5-50.1) % MCV (83.0-100.0) fL MCH (28.0-33.3) pg MCHC (31.6-35.5) g/dL RDW (11.5-14.5) % Plt Count (140-400) K/mcL MPV (9.4-12.4) fL Immature Gran % (0-4) % Seg Neutrophils % % Lymphocytes % % Monocytes % % Eosinophils % % Basophils % % Neutrophils # (1.6-8.9) K/mcL Lymphocytes # (0.6-4.6) K/mcL Monocytes # (0.0-1.3) K/mcL Eosinophils # (0.0-0.6) K/mcL Basophils # (0.0-0.2) K/mcL PT (9.4-12.1) Seconds INR Sodium (136-145) mEq/L Potassium (3.5-4.5) mEq/L Chloride (98-109) mEq/L Carbon Dioxide (19-29) mEq/L BUN (8-26) mg/dL Creatinine (0.72-1.25) mg/dL Est GFR ( Amer) (> 60) Est GFR (Non-Af Amer) (> 60) BUN/Creatinine Ratio (6-26) Glucose (70-99) mg/dL POC Glucose 237 H (58-89) Calculated Osmolality (280-300) Lactic Acid (0.5-2.2) mmol/L Calcium (8.6-10.8) mg/dL Troponin I (0-0.03) ng/mL B-Natriuretic Peptide (0-100) pg/mL - Radiology Data Radiology results reviewed: Yes I reviewed the patient's radiology results. Chest X-Ray 06/25/17 16:40 IMPRESSION: Moderate left and small right pleural effusion, stable mildly increased when compared to the previous exam. D/ / Nico Grimaldo MD / Nico Grimaldo MD Interpreting Provider: Nico Grimaldo MD - EKG Data EKG #1 EKG attestation: Yes I reviewed and interpreted this EKG. EKG results narrative: Patient's EKG done at 16:18 shows a paced rhythm at 85 bpm. QRS is 141, QT is 409, QTC is 451 these are within normal limits. No new ST elevation, depression or Q waves mostly unchanged from his EKG done on 04/29/2017.
--- NOTE | 2017-06-25 17:06 | Emergency Department Note ---
START Narrative - START START: I examined this patient and my medical decision-making was reviewed with the Resident Physician. I agree with the documented findings, disposition and treatment plan as described except to the extent set forth below. Patient was independently seen and evaluated by myself. Patient was seen with the emergency medicine resident Ernie Streeter. Please see copy of her notes for details of this ED encounter management and disposition. Briefly: A 87-year-old male history of CHF presents with increased fatigue swelling and shortness of breath that he says consistent with his prior flare of CHF. Denies chest pain fever chills or sputum. He has dependent edema and faint rales and coarse breath sounds. Skin good chest x-ray PA and lateral breathing treatments screening labs. EKG shows no acute ischemic changes. Disposition pending.
[2017-06-25] MEDS ORDERED: Levofloxacin 750 MG/150 ML 750 MG/150 ML BAG IVPB ONE (17:16)
[2017-06-25 17:28] LABS: Hematocrit 36.5 % (37.5-50.1); Hemoglobin 11.5 g/dL (12.9-16.9); Immature Granulocytes % 0.2 % (0-4); Lymphocytes % 22.3 %; Mean Corpuscular HGB Conc 31.5 g/dL (31.6-35.5); Mean Corpuscular Hemoglobin 31.3 pg (28.0-33.3); Mean Corpuscular Volume 99.2 fL (83.0-100.0); Mean Platelet Volume 9.2 fL (9.4-12.4); Platelet Count 157 K/mcL (140-400); Red Blood Count 3.68 M/mcL (4.19-5.50); Segmented Neutrophils % 69.9 %
[2017-06-25 17:29] LABS: Eosinophils % 0.4 %; Lymphocytes # 1.1 K/mcL (0.6-4.6); Monocytes # 0.4 K/mcL (0.0-1.3); Monocytes % 7.2 %; Neutrophils # 3.4 K/mcL (1.6-8.9)
[2017-06-25 17:44] LABS: Calcium 8.9 mg/dL (8.6-10.8); Potassium 4.2 mEq/L (3.5-4.5)
[2017-06-25 18:03] LABS: INR 4.2
[2017-06-25 18:08] LABS: Prothrombin Time 46.1 Seconds (9.4-12.1)
[2017-06-25] MEDS ORDERED: Furosemide 40 MG/4 ML VIAL IVP ONE (18:09)
[2017-06-25] MEDS ORDERED: Ondansetron 4 MG/2 ML VIAL IVP PRN (23:11)
[2017-06-25] MEDS ORDERED: Naloxone 0.4 MG/ML INJ IVP PRN (23:11)
[2017-06-25] MEDS ORDERED: Acetaminophen 325 MG TABLET PO PRN (23:11)
[2017-06-25] MEDS ORDERED: *HR* Dextrose 50 % in Water (Syg) 50 ML SYRINGE IVP PRN (23:22)
[2017-06-25] MEDS ORDERED: Dextrose Gel 15 GM PO PRN ×2 (23:22)
[2017-06-25] MEDS ORDERED: D5% in Water 1,000 ML IVC PRN (23:22)
--- NOTE | 2017-06-25 23:42 | Internal Med History&Physical ---
Date of Encounter: 06/25/17 Time of Encounter: 21:00 Assessment and Plan (1) Acute exacerbation of CHF (congestive heart failure) Current visit: Yes Status: Acute 1 patient has been experiencing increasing shortness of breath as well as lower extremity swelling over the past 2 weeks. Previous echo did show EF of 30%. BNP is 901 chest x-ray showed moderate left and a small right pleural effusion. He is on 40 mg of Lasix twice a day home we will increase that to 40 twice a day IV. 2 monitor intake and output daily weights 3 low sodium diet 4 1500 mL fluid restriction 5 continuous cardiac monitoring 6 consult cardiology Qualifiers: Congestive heart failure type: systolic Qualified Code(s): I50.23 - Acute on chronic systolic (congestive) heart failure (2) Atrial fibrillation Current visit: No Status: Chronic 1 present patient is in paced rhythm was anticoagulated on Coumadin however we will hold for now since INR is 4.2 daily INRs goal is to maintain between 2 and 3 Qualifiers: Atrial fibrillation type: paroxysmal Qualified Code(s): I48.0 - Paroxysmal atrial fibrillation (3) HTN (hypertension) Current visit: No Status: Chronic 1 is only blood pressure is controlled we will continue with home medications lisinopril Lasix Qualifiers: Hypertension type: essential hypertension Qualified Code(s): I10 - Essential (primary) hypertension (4) Diabetes Current visit: No Status: Chronic Accu-Cheks before meals at bedtime we will continue with sliding scale as well as basal insulin Diabetic diet Qualifiers: Diabetes mellitus type: type 2 Diabetes mellitus complication status: without complication Diabetes mellitus group home insulin use: with group home use Qualified Code(s): E11.9 - Type 2 diabetes mellitus without complications ; Z79.4 - skilled nursing (current) use of insulin (5) Elevated troponin Current visit: No Status: Chronic Presently troponin is 0.18 in April it was 0.6. I suspect this is related to demand ischemia from CHF exacerbation. We will continue to trend troponin. Continuous cardiac monitoring (6) Pleural effusion Current visit: No Status: Acute 1 chest x-ray shows a moderate left and a small right pleural effusion which is stable at this time. We will continue with Lasix Oxygen to maintain SPO2 greater than 90% (7) Supratherapeutic INR Current visit: Yes Status: Acute Patient is on Coumadin for atrial fibrillation. [place] INR is 4.2. We will hold today recheck in the a.[facility]. pharmacy to dose Coumadin (8) DVT prophylaxis Current visit: Yes Status: Acute Patient is on Coumadin PAUL smith Internal Medicine - H&P: HPI Chief complaint: SOB Admitted From: Emergency Dept Plans for Post Hospital Care: Home History of present illness: Mr. Sanchez is a 87 year old male past medical history of atrial fibrillation anticoagulated on Coumadin cardiomyopathy with pacemaker CHF CAD with a CABG 10 years ago diabetes hypertension CKD patient has been experiencing increasing shortness of breath and lower extremity swelling over the past 2 weeks. He denies any weight gain orthopnea. Denies any chest pain fevers chills nausea vomiting or diarrhea. He did have a recent admission to this facility in April of this year for CHF exacerbation. His home dose of Lasix was increased. He states that he has been compliant with his medications fluid restriction as well as diet. He presented to the ER with above complaints. Lab work was obtained which did show supratherapeutic INR elevated troponin 0.18 chest x-ray with moderate left and small right pleural effusion that was stable and was mildly increased when compared to previous exam. Patient was given Lasix in the ER and has been admitted for further workup and evaluation. Presently patient does not appear to be rest or distress he denies any chest pain at this time he is hemodynamically stable. I did review this case with Dr. Henley who agrees with plan. Past Med Surg Social Fam HX - Past Medical History Medical history: atrial fibrillation, cardiomyopathy, CHF, coronary artery disease, diabetes, hypertension, myocardial infarction, renal disease Psychiatric history: no psych history - Past Surgical History Surgical History: coronary bypass (CABG), AICD, pacemaker - Social History Smoking Status: Former smoker Smokeless Tobacco Status: No Alcohol use: none Drug use: none - Family History Father Living Status: Hx Family Cardiac Disorders: Yes Mother Living Status: Hx Family Cardiac Disorders: Yes Internal Medicine - H&P: Meds Cholecalciferol (D-3) [Vitamin D] 2,000 unit PO DAILY 01/13/17 [History] Clopidogrel [Plavix] 75 mg PO DAILY 01/13/17 [History] Docusate [Colace] 100 mg PO BID 01/13/17 [History] Finasteride [Proscar] 5 mg PO HS 01/13/17 [History] Insulin ASPART [NovoLOG] 29 unit SQ TIDWM 01/13/17 [History] Insulin NPH Human Isophane [Novolin N] 20 unit SQ QAM 01/13/17 [History] Levothyroxine [Synthroid] 150 mcg PO QAM 01/13/17 [History] Lisinopril [Zestril] 40 mg PO BID 01/13/17 [History] Metoprolol Succinate 100 mg PO DAILY 01/13/17 [History] Simvastatin [Zocor] 20 mg PO HS 01/13/17 [History] Warfarin [Coumadin] 7.5 mg PO Q72H 04/29/17 [History] Furosemide [Lasix] 40 mg PO BID #30 05/01/17 [Rx] Fluticasone Propionate Nasal [Flonase] 50 mcg NS DAILY PRN 06/25/17 [History] Insulin NPH Human Isophane [Novolin N] 15 unit SQ HS 06/25/17 [History] Oxymetazoline HCl [Afrin] 1 spray NS DAILY PRN 06/25/17 [History] 3 Allergy/AdvReac Type Severity Reaction Status Date / Time No Known Allergies Allergy Verified 06/25/17 16:00 All Systems PM: A 10-system review of systems was performed and is negative for pertinent findings except as documented above in the HPI. - Constitutional Constitutional: fatigue, no chills, no fever(s), no night sweats - EENT Eyes: no change in vision, no discharge, no pain, no photophobia Nose, mouth and throat: no dysphagia, no nasal discharge, no neck pain, no sore throat - Cardiovascular Cardiovascular ROS IM: dyspnea on exertion, no chest pain, no diaphoresis, no dyspnea, no lightheadedness, no palpitations, no syncope - Respiratory Respiratory: dyspnea on exertion, wheezing - Gastrointestinal Gastrointestinal: no abdominal pain, no diarrhea, no hematemesis, no hematochezia, no melena, no nausea, no vomiting - Musculoskeletal Musculoskeletal ROS IM: no numbness, no tingling - Integumentary Integumentary IM: no rash, no unusual bruising - Neurological Neurological ROS: no confusion, no convulsions, no focal weakness, no numbness, no tingling, no tremor(s) - Hematologic/Lymphatic Hematologic/Lymphatic: no easy bruising - Constitutional Vitals: Temp Pulse Resp BP Pulse Ox 97.6 F 79 18 149/97 97 06/25/17 21:40 06/25/17 21:40 06/25/17 21:40 06/25/17 21:40 06/25/17 21:40 General appearance: Present: A&O X 3, morbidly obese - Head Head exam: Present: atraumatic, normocephalic - Eye Eye exam: Present: PERRL, conjuntiva pink, sclera anicteric Pupils: Present: PERRL - Neck Neck exam general surgery: Present: supple, trachea midline. Absent: lymphadenopathy - Respiratory Respiratory exam: Present: rhonchi. Absent: accessory muscle use, rales, wheezes - Cardiovascular Cardiovascular exam: Present: RRR, +S1, +S2. Absent: diastolic murmur, gallop, rubs, systolic murmur - GI/Abdominal GI/Abdominal exam: Present: normal bowel sounds, soft, no peritoneal signs. Absent: distended, tenderness - Extremities Exam Extremities exam: Present: pedal edema, warm, radial pulses palpable and symmetrical. Absent: calf tenderness, cyanotic - Neurological Exam Neurological exam: Present: CN II-XII intact, oriented X3, no focal deficits. Absent: pronater drift, facial droop, speech deficit - Skin Skin exam: Present: dry, intact Internal Med - H&P Results - Labs CBC & Chem 7: 06/25/17 17:17 06/25/17 17:17 - EKG Data Prior EKG available for review: yes When compared to previous EKG: there is no significant change EKG comments: 06/25/17 23:44 Paced rhythm - Diagnostic Studies Other Images Additional comments: Chest X-Ray 06/25/17 16:40 IMPRESSION: Moderate left and small right pleural effusion, stable mildly increased when compared to the previous exam. D/ / Nico Grimaldo MD / Nico Grimaldo MD Interpreting Provider: Nico Grimaldo MD
--- NOTE | 2017-06-26 01:25 | Event Note ---
Date of Encounter: 06/25/17 Time of Encounter: 23:00 Discussed with KELLE and agree with assessment and plan. Will treat patient with IV diuresis for acute on chronic systolic heart failure. Cardiology consulted and appreciate any recommendations. Patient also with supratherapeutic INR and Coumadin will be held overnight.
[2017-06-26 05:29] LABS: Hematocrit 36.3 % (37.5-50.1); Hemoglobin 11.3 g/dL (12.9-16.9); Mean Corpuscular HGB Conc 31.1 g/dL (31.6-35.5); Mean Corpuscular Hemoglobin 31.2 pg (28.0-33.3); Mean Corpuscular Volume 100.3 fL (83.0-100.0); Mean Platelet Volume 9.4 fL (9.4-12.4); Platelet Count 152 K/mcL (140-400); Red Blood Count 3.62 M/mcL (4.19-5.50)
[2017-06-26 05:40] LABS: Calcium 8.6 mg/dL (8.6-10.8); Potassium 4.2 mEq/L (3.5-4.5)
[2017-06-26] MEDS ORDERED: Insulin NPH 100 UNIT/ML (x5UNIT) SQ SCH ×2 (09:00→21:00)
[2017-06-26] MEDS: Furosemide 40 MG/4 ML VIAL IVP SCH ×2 (09:52→20:53)
[2017-06-26] MEDS: Insulin LISPRO 300 UNITS/3 ML VIAL SQ SCH ×4 (09:52→20:53)
[2017-06-26] MEDS: Metoprolol XL (24 HR) Succ 50 MG TAB.ER.24H PO SCH (09:53)
[2017-06-26] MEDS: Cholecalciferol (D-3) 1,000 UNIT TABLET PO SCH (09:53)
[2017-06-26] MEDS: Lisinopril 20 MG TABLET PO SCH ×2 (09:53→20:52)
[2017-06-26] MEDS: Ipratropium/Albuterol Neb 3 ML IH SCH ×5 (11:09→23:46)
--- NOTE | 2017-06-26 13:58 | Internal Med Progress Note ---
Date of Encounter: 06/26/17 Time of Encounter: 09:00 - Assessment and plan (1) Acute exacerbation of CHF (congestive heart failure) Current Visit: Yes Status: Acute Assessment and plan: Patient has a history of systolic CHF with EF 30%. Increased shortness of breath, elevated BNP, chest x-ray shows pleural effusion. - Consider CHF exacerbation. - Place patient on Lasix IV twice a day - Strict I/O, fluid restriction - Supportive treatment with oxygen and as needed BiPAP - On AICD, cont BB and ACEI Qualifiers: Congestive heart failure type: systolic Qualified Code(s): I50.23 - Acute on chronic systolic (congestive) heart failure (2) Atrial fibrillation Current Visit: No Status: Chronic Assessment and plan: Heart rate is well controlled. On Coumadin for anticoagulation. 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 Old charts are reviewed, patient has chronic elevated troponin. Probably due to demand ischemia. We will consult cardiology for further management. (6) CKD (chronic kidney disease) Current Visit: No Status: Chronic Assessment and plan: Creatinine level is Stable at baseline Qualifiers: Chronic kidney disease stage: stage 3 (moderate) Qualified Code(s): N18.3 - Chronic kidney disease, stage 3 (moderate) (7) Pleural effusion Current Visit: No Status: Acute Assessment and plan: Probably due to CHF. Continue Lasix IV. Follow-up chest x-ray (8) CAD (coronary artery disease) Current Visit: No Status: Chronic Assessment and plan: Denies chest pain. Continue home medications Qualifiers: Coronary Disease-Associated Artery/Lesion type: [place] artery [place] vs. transplanted heart: [place] heart Associated angina: without angina Qualified Code(s): I25.10 - Atherosclerotic heart disease of [place] coronary artery without angina pectoris (9) DVT prophylaxis Current Visit: No Status: Chronic Assessment and plan: Patient is on Coumadin. INR is supratherapeutic - Time Spent With Patient 25 - 35 minutes - Subjective Interval history: Patient is a 87-year-old male admitted for CHF exacerbation. Past medical history is significant for systolic CHF with LVEF 30%, on AICD, A. fib, diabetes , CAD, hypertension, CKD. Patient was seen and examined. Still shortness of breath but improved after Lasix use. Denies chest pain. Vitals are stable. We will continue IV Lasix and supportive treatment. - Constitutional Vitals: Temp Pulse Resp BP Pulse Ox 97.4 F L 86 18 127/77 97 06/26/17 11:14 06/26/17 11:14 06/26/17 11:14 06/26/17 11:14 06/26/17 11:57 General appearance: Present: A&O X 3, morbidly obese - Head Head exam: Present: atraumatic, normocephalic - Eye Eye exam: Present: PERRL, conjuntiva pink, sclera anicteric Pupils: Present: PERRL - Neck Neck exam general surgery: Present: supple, trachea midline. Absent: lymphadenopathy - Respiratory Respiratory exam: Present: CTAB. Absent: accessory muscle use, rales, rhonchi, wheezes - Cardiovascular Cardiovascular exam: Present: RRR, +S1, +S2. Absent: diastolic murmur, gallop, rubs, systolic murmur - GI/Abdominal GI/Abdominal exam: Present: normal bowel sounds, soft, no peritoneal signs. Absent: distended, tenderness - Extremities Exam Extremities exam: Present: pedal edema (Mild pedal edema bilaterally), warm, radial pulses palpable and symmetrical. Absent: calf tenderness, cyanotic - Neurological Exam Neurological exam: Present: CN II-XII intact, oriented X3, no focal deficits. Absent: pronater drift, facial droop, speech deficit - Skin Skin exam: Present: dry, intact Internal Medicine: Result - Labs CBC & Chem 7: 06/26/17 05:23 06/26/17 05:23 Labs: Short CBC 06/26/17 Range/Units 05:23 WBC 4.5 (4.3-11.1) K/mcL Hgb 11.3 L (12.9-16.9) g/dL Hct 36.3 L (37.5-50.1) % Plt Count 152 (140-400) K/mcL BMP 06/26/17 05:23 Sodium 142 Potassium 4.2 Chloride 99 Carbon Dioxide 37 H BUN 26 Creatinine 1.49 H Glucose 192 H Calcium 8.6 Cardiac Enzymes 06/25/17 06/26/17 06/26/17 Range/Units 23:48 05:23 11:14 Troponin I 0.20 H* 0.18 H* 0.16 H* (0-0.03) ng/mL - ABG Interpretation ABG results: PT/INR, D-dimer PT 46.1 Seconds (9.4-12.1) H* 06/25/17 17:17 - VTE Documentation of Mechanical Device: Graduated compression elastic hosiery Consult Discharge Plan - Plan Referrals: Fabrizio Campbell MD [Primary Care Provider] -
--- NOTE | 2017-06-26 16:08 | Cardiology Consult Note ---
Date of Encounter: 06/26/17 Time of Encounter: 13:30 Assessment and Plan (1) Acute exacerbation of CHF (congestive heart failure) Current Visit: Yes Status: Acute Acute on chronic systolic heart failure, unclear etiology, multifactorial, suspect component of non compliance with sodium and fluid restrictions, cannot rul;e out arrhythmic etiology or new ischemic mediated LV dysfunction, date and results of last stress unknown, will order echo to evaluate LV function. Further reccommendations pending echo results. Qualifiers: Congestive heart failure type: systolic Qualified Code(s): I50.23 - Acute on chronic systolic (congestive) heart failure (2) Elevated troponin Current Visit: No Status: Chronic Mildly elevated troponin, appears chronically elevated, however may need stress imaging to evaluate ischemic substrate if not evaluated recently when CHf is better compensated. (3) CAD (coronary artery disease) of artery bypass graft Current Visit: Yes Status: Acute Severe triple vessel CAD, post CABG with 3 vessel bypass, ischemia evalution pending improvement in CHF, Qualifiers: [place] vs. transplanted heart: [place] heart Associated angina: with stable angina Qualified Code(s): I25.708 - Atherosclerosis of coronary artery bypass graft(s), unspecified, with other forms of angina pectoris (4) CAD (coronary artery disease) Current Visit: Yes Status: Acute Severe three vessel CAD, post CABG Qualifiers: Qualified Code(s): I25.10 - Atherosclerotic heart disease of [place] coronary artery without angina pectoris (5) Dyspnea Current Visit: No Status: Acute Acute on chronic exacerbation of COPD, chronically O2 dependent, reports is compliant and consistent with continuous use O2 @2 lpnc Qualifiers: Dyspnea type: orthopnea Qualified Code(s): R06.01 - Orthopnea (6) Diabetes Current Visit: Yes Status: Chronic Pt reports blood sugars have been well controlled on current meds. 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 All questions were answered. Thank you for involving us in the care of your patient. Please call with any questions. History of Present Illness Consult date: 06/26/17 Chief complaint: shortness of breath History of present illness: Mr. Sanchez is a 87 year old male who presented with worsening shortness of breath. Symptoms started with exercise approximately five days ago, progressed to shortness of breath at rest with conversational dyspnea. He reports increasing orthopnea, has been unable to lie flat for the last three nights. He has decreased exercise from mowing unrestricted activity to shortness of breath, having to stop to catch his breath walking to the restroom. He reports history of exertional chest pain, with walking up hills or stairs, also provoked by walking fast, sensation of chest squeezing, lasting five to ten minutes, relieved with rest, which resolved following CABG x 3 2008. 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 He has an indwelling AICD, denies symptomatic delivered therapy, he cannot recall when his pacer was last checked. He also reports he is comlpliant with continuous oxygen use, at 2 l pnc continuously. Past Med Surg Social Fam HX - Past Medical History Medical history: atrial fibrillation, cardiomyopathy, CHF, coronary artery disease, diabetes, hypertension, myocardial infarction, renal disease Psychiatric history: no psych history - Past Surgical History Surgical History: coronary bypass (CABG), AICD, pacemaker - Social History Smoking Status: Former smoker Smokeless Tobacco Status: No Alcohol use: none Drug use: none - Family History Father Living Status: Hx Family Cardiac Disorders: Yes Mother Living Status: Hx Family Cardiac Disorders: Yes Medications and Allergies Cholecalciferol (D-3) [Vitamin D] 2,000 unit PO DAILY 01/13/17 [History] Clopidogrel [Plavix] 75 mg PO DAILY 01/13/17 [History] Docusate [Colace] 100 mg PO BID 01/13/17 [History] Finasteride [Proscar] 5 mg PO HS 01/13/17 [History] Insulin ASPART [NovoLOG] 29 unit SQ TIDWM 01/13/17 [History] Insulin NPH Human Isophane [Novolin N] 20 unit SQ QAM 01/13/17 [History] Levothyroxine [Synthroid] 150 mcg PO QAM 01/13/17 [History] Lisinopril [Zestril] 40 mg PO BID 01/13/17 [History] Metoprolol Succinate 100 mg PO DAILY 01/13/17 [History] Simvastatin [Zocor] 20 mg PO HS 01/13/17 [History] Warfarin [Coumadin] 7.5 mg PO Q72H 04/29/17 [History] Furosemide [Lasix] 40 mg PO BID #30 05/01/17 [Rx] Fluticasone Propionate Nasal [Flonase] 50 mcg NS DAILY PRN 06/25/17 [History] Insulin NPH Human Isophane [Novolin N] 15 unit SQ HS 06/25/17 [History] Oxymetazoline HCl [Afrin] 1 spray NS DAILY PRN 06/25/17 [History] 3 Allergy/AdvReac Type Severity Reaction Status Date / Time No Known Allergies Allergy Verified 06/25/17 16:00 All Systems Review: A 10-system review of systems was performed and is negative for pertinent findings except as documented above in the HPI. - Constitutional Constitutional: daytime sleepiness, fatigue - EENT Ears: right: hearing loss - Cardiovascular Cardiovascular: dyspnea at rest, dyspnea on exertion, leg edema - Respiratory Respiratory: dyspnea, wheezing - Musculoskeletal Musculoskeletal: back pain, muscle cramps Physical Examination Vital Signs, Last 4 Hours Temp Pulse Resp BP Pulse Ox 06/26/17 15:00 98.0 F 78 19 132/73 95 General: Conversant, No Apparent Distress HEENT: Atraumatic, Normocephaly Neck: No JVD, Normal carotid pulses Cardiac: Reg Rate and Rhythm, Normal S1 and S2, No Murmur Lungs: Normal Breath Sounds, No Wheeze, Rales, Rhonchi, Other (mild crackles bilateral bases, do not clear with cough) Neuro: Alert and responsive, No focal deficits noted Abdomen: Soft, Non-Tender, Other (Morbidly obese, abdomen non tender. ) Skin: No rashes noted on visualized skin Musculoskeletal: No Chest Wall Tenderness Extremities: Other (mild 1+ pretibial edema bilateral) Results 06/26/17 05:23 06/26/17 05:23 Lab Results 06/25/17 06/26/17 06/26/17 23:48 05:23 05:23 WBC 4.5 Hgb 11.3 L Hct 36.3 L Plt Count 152 Sodium 142 Potassium 4.2 Chloride 99 Carbon Dioxide 37 H BUN 26 Creatinine 1.49 H Glucose 192 H Calcium 8.6 Troponin I 0.20 H* 06/26/17 06/26/17 05:23 11:14 WBC Hgb Hct Plt Count Sodium Potassium Chloride Carbon Dioxide BUN Creatinine Glucose Calcium Troponin I 0.18 H* 0.16 H* - Imaging and Cardiology Chest Xray: report reviewed - EKG Interpretation EKG results cardiology: personally reviewed Consult Discharge Plan - Plan Referrals: Fabrizio Campbell MD [Primary Care Provider] -
[2017-06-26] MEDS ORDERED: Warfarin perPT PO PRN (18:00)
[2017-06-26] MEDS: Finasteride 5 MG TABLET PO SCH (20:52)
[2017-06-26] MEDS ORDERED: Insulin DETEMIR 100 UNIT/ML X5UNITS SQ SCH (21:00)
[2017-06-27] MEDS: Ipratropium/Albuterol Neb 3 ML IH SCH ×5 (03:19→20:51)
[2017-06-27 03:43] LABS: Basophils % 0.2 %; Eosinophils % 0.7 %; Hematocrit 35.3 % (37.5-50.1); Hemoglobin 11.1 g/dL (12.9-16.9); Immature Granulocytes % 0.2 % (0-4); Lymphocytes # 1.1 K/mcL (0.6-4.6); Lymphocytes % 23.4 %; Mean Corpuscular HGB Conc 31.4 g/dL (31.6-35.5); Mean Corpuscular Hemoglobin 31.2 pg (28.0-33.3); Mean Corpuscular Volume 99.2 fL (83.0-100.0); Mean Platelet Volume 9.4 fL (9.4-12.4); Monocytes # 0.3 K/mcL (0.0-1.3); Monocytes % 6.3 %; Neutrophils # 3.2 K/mcL (1.6-8.9); Platelet Count 148 K/mcL (140-400); Red Blood Count 3.56 M/mcL (4.19-5.50); Segmented Neutrophils % 69.2 %
[2017-06-27 03:47] LABS: INR 2.4; Prothrombin Time 26.2 Seconds (9.4-12.1)
[2017-06-27 03:59] LABS: Calcium 8.9 mg/dL (8.6-10.8); Potassium 3.8 mEq/L (3.5-4.5)
[2017-06-27] MEDS: Insulin LISPRO 300 UNITS/3 ML VIAL SQ SCH ×4 (08:42→20:26)
[2017-06-27] MEDS: Cholecalciferol (D-3) 1,000 UNIT TABLET PO SCH (08:43)
[2017-06-27] MEDS: Metoprolol XL (24 HR) Succ 50 MG TAB.ER.24H PO SCH ×2 (08:43→20:25)
[2017-06-27] MEDS: Furosemide 40 MG/4 ML VIAL IVP SCH ×2 (08:43→20:26)
[2017-06-27] MEDS: Lisinopril 20 MG TABLET PO SCH ×2 (08:43→20:26)
--- NOTE | 2017-06-27 11:29 | Internal Med Progress Note ---
Date of Encounter: 06/27/17 Time of Encounter: 09:00 - Assessment and plan (1) Acute exacerbation of CHF (congestive heart failure) Current Visit: Yes Status: Acute Assessment and plan: Patient has a history of systolic CHF with EF 30%. Increased shortness of breath, elevated BNP, chest x-ray shows pleural effusion. - Consider CHF exacerbation. - Place patient on Lasix IV twice a day - Strict I/O, fluid restriction - Supportive treatment with oxygen and as needed BiPAP - On AICD, cont BB and ACEI - Cardio consult appreciated. Recommendation will be followed. Qualifiers: Congestive heart failure type: systolic Qualified Code(s): I50.23 - Acute on chronic systolic (congestive) heart failure (2) Atrial fibrillation Current Visit: No Status: Chronic Assessment and plan: Heart rate is well controlled. On Coumadin for anticoagulation. Qualifiers: Atrial fibrillation type: paroxysmal Qualified Code(s): I48.0 - Paroxysmal atrial fibrillation (3) HTN (hypertension) Current Visit: No Status: Chronic Assessment and plan: Continue home medications Qualifiers: Hypertension type: essential hypertension Qualified Code(s): I10 - Essential (primary) hypertension (4) Diabetes Current Visit: Yes Status: Chronic Assessment and plan: Continue basal and sliding scale insulin Qualifiers: Diabetes mellitus type: type 2 Diabetes mellitus complication status: without complication Diabetes mellitus detention insulin use: with detention use Qualified Code(s): E11.9 - Type 2 diabetes mellitus without complications ; Z79.4 - 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 Old charts are reviewed, patient has chronic elevated troponin. Probably due to demand ischemia. Cardio consult appreciated (6) CKD (chronic kidney disease) Current Visit: No Status: Chronic Assessment and plan: Creatinine level is Stable at baseline Qualifiers: Chronic kidney disease stage: stage 3 (moderate) Qualified Code(s): N18.3 - Chronic kidney disease, stage 3 (moderate) (7) Pleural effusion Current Visit: No Status: Acute Assessment and plan: Probably due to CHF. Continue Lasix IV. Follow-up chest x-ray (8) CAD (coronary artery disease) Current Visit: No Status: Chronic Assessment and plan: Denies chest pain. Continue home medications Qualifiers: Coronary Disease-Associated Artery/Lesion type: [place] artery [place] vs. transplanted heart: jena heart Associated angina: without angina Qualified Code(s): I25.10 - Atherosclerotic heart disease of jena coronary artery without angina pectoris (9) DVT prophylaxis Current Visit: No Status: Chronic Assessment and plan: Patient is on Coumadin. - Time Spent With Patient 25 - 35 minutes - Subjective Interval history: Patient is a 87-year-old male admitted for CHF exacerbation. Past medical history is significant for systolic CHF with LVEF 30%, on AICD, A. fib, diabetes , CAD, hypertension, CKD. Patient was seen and examined. Shortness of breath has improved after Lasix use. Denies chest pain. Vitals are stable. We will continue IV Lasix and supportive treatment. Fluid balance -770 ml. Cont fluid restriction. - Constitutional Vitals: Temp Pulse Resp BP Pulse Ox 97.8 F 83 15 148/74 97 06/27/17 11:18 06/27/17 11:18 06/27/17 11:18 06/27/17 11:18 06/27/17 11:18 General appearance: Present: A&O X 3, morbidly obese - Head Head exam: Present: atraumatic, normocephalic - Eye Eye exam: Present: PERRL, conjuntiva pink, sclera anicteric Pupils: Present: PERRL - Neck Neck exam general surgery: Present: supple, trachea midline. Absent: lymphadenopathy - Respiratory Respiratory exam: Present: CTAB. Absent: accessory muscle use, rales, rhonchi, wheezes - Cardiovascular Cardiovascular exam: Present: RRR, +S1, +S2. Absent: diastolic murmur, gallop, rubs, systolic murmur - GI/Abdominal GI/Abdominal exam: Present: normal bowel sounds, soft, no peritoneal signs. Absent: distended, tenderness - Extremities Exam Extremities exam: Present: warm, radial pulses palpable and symmetrical. Absent : calf tenderness, cyanotic, pedal edema - Neurological Exam Neurological exam: Present: CN II-XII intact, oriented X3, no focal deficits. Absent: pronater drift, facial droop, speech deficit - Skin Skin exam: Present: dry, intact Internal Medicine: Result - Labs CBC & Chem 7: 06/27/17 03:30 06/27/17 03:30 Labs: Short CBC 06/27/17 Range/Units 03:30 WBC 4.6 (4.3-11.1) K/mcL Hgb 11.1 L (12.9-16.9) g/dL Hct 35.3 L (37.5-50.1) % Plt Count 148 (140-400) K/mcL Neutrophils # 3.2 (1.6-8.9) K/mcL BMP 06/27/17 03:30 Sodium 142 Potassium 3.8 Chloride 98 Carbon Dioxide 38 H BUN 27 H Creatinine 1.45 H Glucose 156 H Calcium 8.9 Cardiac Enzymes 06/26/17 Range/Units 11:14 Troponin I 0.16 H* (0-0.03) ng/mL - ABG Interpretation ABG results: PT/INR, D-dimer PT 26.2 Seconds (9.4-12.1) H 06/27/17 03:30 - VTE Documentation of Mechanical Device: Graduated compression elastic hosiery Consult Discharge Plan - Plan Referrals: Fabrizio Campbell MD [Primary Care Provider] -
--- NOTE | 2017-06-27 12:02 | Cardiology Progress Note ---
Date of Encounter: 06/27/17 Time of Encounter: 12:00 Assessment and Plan (1) Acute exacerbation of CHF (congestive heart failure) Current Visit: Yes Status: Acute Per Cardiology: Acute on chronic systolic heart failure. BNP 900's. Known CHF, last echo with EF 30%. Has ICD, ICD interrogation today with results pending. denies any ICD shocks. On Lasix 40mg IV BID-- appears clinically improved. Net I&O -770ml. Weight down from 239lbs to 235lbs, reports home weight 237 lbs. Kidney fxn stable. Continue strict I&O, daily weights, low sodium diet, fluid restriction, PAUL hose. On BB and ACEI. Patient is DNR/DNI/CCA. Qualifiers: Congestive heart failure type: systolic Qualified Code(s): I50.23 - Acute on chronic systolic (congestive) heart failure (2) Elevated troponin level Current Visit: No Status: Acute Per Cardiology: Mild trop. Has hx of chronic mild trops. CP freee. Hx of CAD. Echo pending. (3) Atrial fibrillation Current Visit: No Status: Chronic Per Cardiology: Hx of afib. Heart rate currently 90s to 100s. We'll titrate beta alicia as able. Remains on Coumadin for anticoagulation. Qualifiers: Atrial fibrillation type: unspecified Qualified Code(s): I48.91 - Unspecified atrial fibrillation Discussion w patient/family: The assessment and plan as outlined above was discussed with the patient who expressed understanding and agreement. All questions were answered. Thank you for involving us in the care of your patient. Please call with any questions. Subjective Principal diagnosis: CHF Interval history: Patient reports improvement in his chart of breath and swelling to the shortness. He denies any chest pain or palpitations. Denies any awareness to recent ICD shocks. Objective Vital Signs, Last 4 Hours Temp Pulse Resp BP Pulse Ox 06/27/17 11:18 97.8 F 83 15 148/74 97 06/27/17 09:00 93 General: Conversant, No Apparent Distress HEENT: Atraumatic, Normocephaly Cardiac: Reg Rate and Rhythm, Normal S1 and S2, No Murmur Lungs: Normal Breath Sounds, No Wheeze, Rales, Rhonchi, Other (mild sob at rest , slightly diminished to bases) Neuro: Alert and responsive, No focal deficits noted Abdomen: Soft, Non-Tender Skin: No rashes noted on visualized skin Musculoskeletal: No Chest Wall Tenderness Extremities: Other (+2 nonpitting edema bilateral LE) Results 06/27/17 03:30 06/27/17 03:30 Lab Results Laboratory Tests 01/14/17 04/30/17 06/25/17 02:42 07:54 17:17 INR Creatinine 1.62 H Est GFR (Non-Af Amer) 41 L Troponin I 0.09 H* 0.16 H* B-Natriuretic Peptide 06/25/17 06/25/17 06/25/17 17:17 17:17 23:48 INR Creatinine Est GFR (Non-Af Amer) Troponin I 0.18 H* 0.20 H* B-Natriuretic Peptide 901 H 06/26/17 06/26/17 06/27/17 05:23 11:14 03:30 INR 2.4 Creatinine Est GFR (Non-Af Amer) Troponin I 0.18 H* 0.16 H* B-Natriuretic Peptide 06/27/17 03:30 INR Creatinine 1.45 H Est GFR (Non-Af Amer) 46 L Troponin I B-Natriuretic Peptide ITS Impressions Chest X-Ray 06/25/17 16:40 IMPRESSION: Moderate left and small right pleural effusion, stable mildly increased when compared to the previous exam. D/ / Nico Grimaldo MD / Nico Grimaldo MD Interpreting Provider: Nico Grimaldo MD Intake & Output 06/24/17 06/25/17 06/26/17 06/27/17 23:59 23:59 23:59 23:59 Intake Total 0 / 0 1440 / 1440 540 / 540 Output Total 1100 / 1100 1650 / 1650 Balance 0 / 0 340 / 340 -1110 / -1110 Weight 109.3 kg 109.3 kg 106.75 kg Active Medications Acetaminophen (Tylenol) 650 mg PO Q6HR PRN PRN Reason: Mild Pain (1-3) Stop: 12/25/17 23:12 Albuterol/Ipratropium (Duoneb) 3 ml IH [id number] [facility] Stop: 12/26/17 06:31 Last Admin: 06/27/17 11:05 Dose: 3 ml Clopidogrel Bisulfate (Plavix) 75 mg PO DAILY [facility] Stop: 12/26/17 09:01 Last Admin: 06/27/17 08:43 Dose: 75 mg Dextrose/Water (Dextrose 50% (Syg)) 25 ml IVP AD PRN PRN Reason: Hypoglycemia Stop: 12/25/17 23:23 Docusate Sodium (Colace) 100 mg PO BID [facility] PRN Reason: Protocol Stop: 12/26/17 09:01 Last Admin: 06/27/17 08:43 Dose: 100 mg Finasteride (Proscar) 5 mg PO HS [facility] PRN Reason: Protocol Stop: 12/26/17 21:01 Last Admin: 06/26/17 20:52 Dose: 5 mg Furosemide (Lasix) 40 mg IVP BID [facility] Stop: 12/26/17 09:01 Last Admin: 06/27/17 08:43 Dose: 40 mg Glucagon (Glucagen) 1 mg IM ONCE PRN PRN Reason: Hypoglycemia Stop: 12/25/17 23:23 Glucose (Gluctose) 15 gm PO ONCE PRN PRN Reason: Hypoglycemia Stop: 12/25/17 23:23 Glucose (Gluctose) 30 gm PO ONCE PRN PRN Reason: Hypoglycemia Stop: 12/25/17 23:23 Dextrose (Dextrose 5%) 1,000 mls @ 100 mls/hr IVC .Q10H PRN PRN Reason: HYPOGLYCEMIA Stop: 12/25/17 23:23 Insulin Detemir (Levemir) 20 unit SQ HS [facility] Stop: 12/27/17 21:01 Insulin Human Lispro (Humalog) 0 units SQ HS [facility] PRN Reason: Protocol Stop: 12/26/17 21:01 Last Admin: 06/26/17 20:53 Dose: 4 units Insulin Human Lispro (Humalog) 0 units SQ TIDAC [facility] PRN Reason: Protocol Stop: 12/26/17 07:31 Last Admin: 06/27/17 08:42 Dose: 4 units Levothyroxine Sodium (Synthroid) 150 mcg PO QAM [facility] Stop: 12/26/17 09:01 Last Admin: 06/27/17 08:43 Dose: 150 mcg Lisinopril (Zestril) 40 mg PO BID [facility] Stop: 12/26/17 09:01 Last Admin: 06/27/17 08:43 Dose: 40 mg Metoprolol Succinate (Toprol Xl) 100 mg PO DAILY [facility] Stop: 12/26/17 09:01 Last Admin: 06/27/17 08:43 Dose: 100 mg Naloxone HCl (Narcan) 0.4 mg IVP Q2MIN PRN PRN Reason: Opioid Reversal Stop: 12/25/17 23:12 Ondansetron HCl (Zofran) 4 mg IVP Q8HR PRN PRN Reason: Nausea And Vomiting Stop: 12/25/17 23:12 Simvastatin (Zocor) 20 mg PO HS [facility] PRN Reason: Protocol Stop: 12/25/17 23:16 Last Admin: 06/26/17 20:53 Dose: 20 mg Vitamin D (Vitamin D) 1,000 unit PO DAILY [facility] Stop: 12/26/17 09:01 Last Admin: 06/27/17 08:43 Dose: 1,000 unit Warfarin Sodium (Coumadin Perpt) 1 each PO DAILY@1800 PRN PRN Reason: SEE COMMENTS Stop: 12/26/17 18:01 ECHO 12/2016: Impressions: Severe LV systolic dysfunction, LVEF 30%. There is global hypokinesis with regional variations. Indeterminate diastolic function due to atrial fibrillation. Normal right ventricular size with mild-moderate RV hypokinesis. A device lead was visualized in the right atrium and right ventricle. Severely dilated left atrium. Moderate mitral regurgitation. Mild pulmonary hypertension. Estimated RVSP = 38 mmHg. Left Ventricular Wall Motion: Rest Echo Findings The apex, apical inferior, mid inferior, basal inferior, apical anterior, mid anterior, basal anterior, apical septal, mid inferior septal, basal inferior septal, apical lateral, mid anterior lateral, basal anterior lateral, mid anterior septal, mid inferior lateral, basal anterior septal and basal inferior lateral yanez were hypokinetic. - Imaging and Cardiology Chest Xray: report reviewed Echo: report reviewed - EKG Interpretation EKG results cardiology: other (Tele shows afib 90s, V pacing) - VTE Documentation of Mechanical Device: Graduated compression elastic hosiery Consult Discharge Plan - Plan Referrals: Fabrizio Campbell MD [Primary Care Provider] -
--- NOTE | 2017-06-27 17:34 | Electrocardiograph Report ---
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
[2017-06-27] MEDS ORDERED: *HR* Warfarin 5 MG TABLET PO SCH (18:00)
[2017-06-27] MEDS: Finasteride 5 MG TABLET PO SCH (20:25)
[2017-06-27] MEDS: Insulin DETEMIR 100 UNIT/ML X5UNITS SQ SCH (20:27)
[2017-06-28] MEDS: Ipratropium/Albuterol Neb 3 ML IH SCH ×6 (00:42→19:58)
[2017-06-28 04:32] LABS: Eosinophils % 0.9 %; Hematocrit 35.9 % (37.5-50.1); Hemoglobin 11.5 g/dL (12.9-16.9); Immature Granulocytes % 0.2 % (0-4); Lymphocytes # 1.1 K/mcL (0.6-4.6); Lymphocytes % 24.5 %; Mean Corpuscular Hemoglobin 31.6 pg (28.0-33.3); Mean Corpuscular Volume 98.6 fL (83.0-100.0); Mean Platelet Volume 9.8 fL (9.4-12.4); Monocytes # 0.3 K/mcL (0.0-1.3); Monocytes % 7.4 %; Platelet Count 143 K/mcL (140-400); Red Blood Count 3.64 M/mcL (4.19-5.50); Red Cell Distribution Width 14.2 % (11.5-14.5)
[2017-06-28 04:37] LABS: INR 1.7; Prothrombin Time 18.9 Seconds (9.4-12.1)
[2017-06-28 04:53] LABS: Calcium 8.7 mg/dL (8.6-10.8); Potassium 3.6 mEq/L (3.5-4.5)
--- NOTE | 2017-06-28 08:37 | Cardiology Progress Note ---
Date of Encounter: 06/28/17 Time of Encounter: 08:30 Assessment and Plan (1) Acute exacerbation of CHF (congestive heart failure) Current Visit: Yes Status: Acute Per Cardiology: Acute on chronic systolic heart failure. BNP 900's. Known CHF, last echo with EF 30%. Has ICD, ICD interrogation today with results pending. denies any ICD shocks. On Lasix 40mg IV BID-- appears clinically improved. Net I&O -1805ml. Weight down from 239lbs to 235lbs, reports home weight 237 lbs. Kidney fxn stable. Continue strict I&O, daily weights, low sodium diet, fluid restriction, PAUL hose. On BB and ACEI. Patient is DNR/DNI/CCA. Current echo shows EF remains 30%. Recommend continue aggressive diuresis. Patient appears clinically improving. Discussed with Dr. Taveras, will s/o, re-consult PRN, f/u scheduled. Qualifiers: Congestive heart failure type: systolic Qualified Code(s): I50.23 - Acute on chronic systolic (congestive) heart failure (2) Elevated troponin level Current Visit: No Status: Acute Per Cardiology: Mild trop. Has hx of chronic mild trops. CP freee. Hx of CAD. Echo shows EF unchanged at 30%. No further ischemic evaluation at this time. Patient agrees with plan. (3) Atrial fibrillation Current Visit: No Status: Chronic Per Cardiology: Hx of afib. Heart rate currently 90s to 100s. On BB-- titrated yesterday. HR appears better controlled, continue to titrate as needed. SBP improved. Remains on Coumadin for anticoagulation. Qualifiers: Atrial fibrillation type: unspecified Qualified Code(s): I48.91 - Unspecified atrial fibrillation Discussion w patient/family: The assessment and plan as outlined above was discussed with the patient who expressed understanding and agreement. All questions were answered. Thank you for involving us in the care of your patient. Please call with any questions. Subjective Principal diagnosis: CHF Interval history: Patient reports continued improvement in his short of breath and edema. He denies any chest pain or palpitations. Denies any active bleeding or blood loss. Denies any concerns. Objective Vital Signs, Last 4 Hours Temp Pulse Resp BP Pulse Ox 06/28/17 04:46 98.8 F 86 19 136/78 94 General: Conversant Cardiac: No Murmur, Other (Irregularly irregular) Lungs: Other (Scattered rhonchi throughout bilateral bases left greater than right) Neuro: Alert and responsive, No focal deficits noted Skin: No rashes noted on visualized skin Extremities: Other (+1 pitting edema to bilateral lower extremities) Results 06/28/17 04:00 06/28/17 04:00 Lab Results Laboratory Tests 06/28/17 06/28/17 04:00 04:00 INR 1.7 Creatinine 1.55 H Est GFR (Non-Af Amer) 43 L Intake & Output 06/25/17 06/26/17 06/27/17 06/28/17 23:59 23:59 23:59 23:59 Intake Total 0 / 0 1440 / 1440 780 / 780 Output Total 1100 / 1100 2250 / 2250 675 / 675 Balance 0 / 0 340 / 340 -1470 / -1470 -675 / -675 Weight 109.3 kg 109.3 kg 106.75 kg 107.6 kg ECHO: Impressions: LVEF 30%. Severe global left ventricular systolic dysfunction. Indeterminate diastolic function. Mildly dilated right ventricle with mildly reduced function. Mild-moderate mitral regurgitation. No evidence of pulmonary hypertension. RVSP could be underestimated. A device lead was visualized in the right atrium and right ventricle. Active Medications Acetaminophen (Tylenol) 650 mg PO Q6HR PRN PRN Reason: Mild Pain (1-3) Stop: 12/25/17 23:12 Albuterol/Ipratropium (Duoneb) 3 ml IH [id number] [facility] Stop: 12/26/17 06:31 Last Admin: 06/28/17 07:46 Dose: Not Given Clopidogrel Bisulfate (Plavix) 75 mg PO DAILY [facility] Stop: 12/26/17 09:01 Last Admin: 06/27/17 08:43 Dose: 75 mg Dextrose/Water (Dextrose 50% (Syg)) 25 ml IVP AD PRN PRN Reason: Hypoglycemia Stop: 12/25/17 23:23 Docusate Sodium (Colace) 100 mg PO BID [facility] PRN Reason: Protocol Stop: 12/26/17 09:01 Last Admin: 06/27/17 20:25 Dose: 100 mg Finasteride (Proscar) 5 mg PO HS [facility] PRN Reason: Protocol Stop: 12/26/17 21:01 Last Admin: 06/27/17 20:25 Dose: 5 mg Furosemide (Lasix) 40 mg IVP BID [facility] Stop: 12/26/17 09:01 Last Admin: 06/27/17 20:26 Dose: 40 mg Glucagon (Glucagen) 1 mg IM ONCE PRN PRN Reason: Hypoglycemia Stop: 12/25/17 23:23 Glucose (Gluctose) 15 gm PO ONCE PRN PRN Reason: Hypoglycemia Stop: 12/25/17 23:23 Glucose (Gluctose) 30 gm PO ONCE PRN PRN Reason: Hypoglycemia Stop: 12/25/17 23:23 Dextrose (Dextrose 5%) 1,000 mls @ 100 mls/hr IVC .Q10H PRN PRN Reason: HYPOGLYCEMIA Stop: 12/25/17 23:23 Insulin Detemir (Levemir) 20 unit SQ HS [facility] Stop: 12/27/17 21:01 Last Admin: 06/27/17 20:27 Dose: 20 unit Insulin Human Lispro (Humalog) 0 units SQ HS [facility] PRN Reason: Protocol Stop: 12/26/17 21:01 Last Admin: 06/27/17 20:26 Dose: 3 units Insulin Human Lispro (Humalog) 0 units SQ TIDAC [facility] PRN Reason: Protocol Stop: 12/26/17 07:31 Last Admin: 06/27/17 16:46 Dose: 8 units Levothyroxine Sodium (Synthroid) 150 mcg PO QAM [facility] Stop: 12/26/17 09:01 Last Admin: 06/27/17 08:43 Dose: 150 mcg Lisinopril (Zestril) 40 mg PO BID [facility] Stop: 12/26/17 09:01 Last Admin: 06/27/17 20:26 Dose: 40 mg Metoprolol Succinate (Toprol Xl) 100 mg PO BID [facility] Stop: 12/27/17 21:01 Last Admin: 06/27/17 20:25 Dose: 100 mg Naloxone HCl (Narcan) 0.4 mg IVP Q2MIN PRN PRN Reason: Opioid Reversal Stop: 12/25/17 23:12 Ondansetron HCl (Zofran) 4 mg IVP Q8HR PRN PRN Reason: Nausea And Vomiting Stop: 12/25/17 23:12 Simvastatin (Zocor) 20 mg PO [facility] PRN Reason: Protocol Stop: 12/25/17 23:16 Last Admin: 06/27/17 20:25 Dose: 20 mg Vitamin D (Vitamin D) 1,000 unit PO DAILY [facility] Stop: 12/26/17 09:01 Last Admin: 06/27/17 08:43 Dose: 1,000 unit Warfarin Sodium (Coumadin Perpt) 1 each PO DAILY@1800 PRN PRN Reason: SEE COMMENTS Stop: 12/26/17 18:01 Warfarin Sodium (Coumadin) 5 mg PO SUTUTHSA [facility] Stop: 12/27/17 18:01 Last Admin: 06/27/17 16:46 Dose: 5 mg Warfarin Sodium (Coumadin) 4 mg PO MOWEFR [facility] Stop: 12/28/17 18:01 - EKG Interpretation EKG results cardiology: other (Telemetry reviewed with average heart rate 93, remains A. fib with ventricular pacing) - VTE Documentation of Mechanical Device: Graduated compression elastic hosiery Consult Discharge Plan - Plan Referrals: Fabrizio Campbell MD [Primary Care Provider] -
[2017-06-28] MEDS: Furosemide 40 MG/4 ML VIAL IVP SCH ×2 (08:39→22:33)
[2017-06-28] MEDS: Insulin LISPRO 300 UNITS/3 ML VIAL SQ SCH ×3 (08:39→21:13)
[2017-06-28] MEDS: Cholecalciferol (D-3) 1,000 UNIT TABLET PO SCH (08:40)
[2017-06-28] MEDS: Metoprolol XL (24 HR) Succ 50 MG TAB.ER.24H PO SCH ×2 (08:40→21:12)
[2017-06-28] MEDS: Lisinopril 20 MG TABLET PO SCH ×2 (08:40→21:12)
--- NOTE | 2017-06-28 11:12 | Internal Med Progress Note ---
<Reynold Garcias - Last Filed: 06/28/17 15:36> Date of Encounter: 06/28/17 Time of Encounter: 08:15 - Assessment and plan (1) Acute exacerbation of CHF (congestive heart failure) Current Visit: Yes Status: Acute Assessment and plan: Systolic CHF exacerbation with EF 30% and AICD in place. Increased shortness of breath, elevated BNP, chest x-ray reveals pleural effusion. Patient on Lasix IV twice a day Strict I/O, fluid restriction Supportive treatment with oxygen and as needed BiPAP Cont BB and ACEI Cardiology input appreciated. Repeat CXR in AM Qualifiers: Congestive heart failure type: systolic Qualified Code(s): I50.23 - Acute on chronic systolic (congestive) heart failure (2) CAD (coronary artery disease) of artery bypass graft Current Visit: Yes Status: Acute Qualifiers: [place] vs. transplanted heart: [place] heart Associated angina: with stable angina Qualified Code(s): I25.708 - Atherosclerosis of coronary artery bypass graft(s), unspecified, with other forms of angina pectoris (3) Atrial fibrillation Current Visit: No Status: Chronic Assessment and plan: Heart rate is well controlled. Continue to titrate BB as needed. SBP improved. On Coumadin for anticoagulation. Qualifiers: Atrial fibrillation type: unspecified Qualified Code(s): I48.91 - Unspecified atrial fibrillation (4) ICD (implantable cardioverter-defibrillator) in place Current Visit: No Status: Chronic (5) Elevated troponin level Current Visit: Yes Status: Acute Assessment and plan: Mild trop. Has hx of chronic mild trops. CP freee. Hx of CAD. Echo shows EF unchanged at 30%. No further ischemic evaluation at this time. Patient agrees with plan. (6) HTN (hypertension) Current Visit: No Status: Chronic Assessment and plan: Continue home medications Qualifiers: Hypertension type: essential hypertension Qualified Code(s): I10 - Essential (primary) hypertension (7) CKD (chronic kidney disease) Current Visit: No Status: Chronic Assessment and plan: Creatinine level is Stable at baseline Qualifiers: Chronic kidney disease stage: stage 3 (moderate) Qualified Code(s): N18.3 - Chronic kidney disease, stage 3 (moderate) (8) COPD (chronic obstructive pulmonary disease) Current Visit: Yes Status: Acute Assessment and plan: Patient is on 3L supplemental O2 this AM and reports wheezing. He reports recent Manufacturing Production Technician evaluation by Dr. Anderson but was not able to fill his Rx for Symbicort because it was too expensive. disability services coordinator consulted Qualifiers: COPD type: unspecified COPD Qualified Code(s): J44.9 - Chronic obstructive pulmonary disease, unspecified (9) Chronic respiratory failure with hypoxia, on home O2 therapy Current Visit: Yes Status: Acute Assessment and plan: Patient wears 2L supplemental O2 via NC at baseline (10) Diabetes Current Visit: Yes Status: Chronic Assessment and plan: Continue basal and sliding scale insulin Qualifiers: Diabetes mellitus type: type 2 Diabetes mellitus complication status: without complication Diabetes mellitus longterm insulin use: with longterm use Qualified Code(s): E11.9 - Type 2 diabetes mellitus without complications ; Z79.4 - USP (current) use of insulin; Z79.4 - USP (current) use of insulin; Z79.4 - USP (current) use of insulin; Z79.4 - roasterman ( current) use of insulin (11) Obesity (BMI 30-39.9) Current Visit: Yes Status: Acute Assessment and plan: BMI 36.1 Diet modification and exercise discussed (12) DVT prophylaxis Current Visit: Yes Status: Acute Assessment and plan: Coumadin pharmacy to dose - Subjective Interval history: Patient seen and examined. Patient is on 3L supplemental O2 this AM and reports wheezing. He reports recent Manufacturing Production Technician evaluation by Dr. Anderson but was not able to fill his Rx for Symbicort because it was too expensive. Patient reports decreased pedal edema today and has been ambulating without assistance. - Constitutional Vitals: Temp Pulse Resp BP Pulse Ox 96.4 F L 91 16 137/79 94 06/28/17 08:31 06/28/17 08:31 06/28/17 10:49 06/28/17 08:31 06/28/17 10:49 General appearance: Present: cooperative, A&O X 3, no acute distress, obese, answers questions appropriately - Head Head exam: Present: atraumatic - Eye Eye exam: Present: EOMI, conjuntiva pink, sclera anicteric - ENT ENT exam: Present: mucous membranes moist, normal oropharynx - Neck Neck exam general surgery: Present: normal inspection, supple - Respiratory Respiratory exam: Present: wheezes (expiratory). Absent: accessory muscle use, respiratory distress - Cardiovascular Cardiovascular exam: Present: irregular rhythm, +S1, +S2 - GI/Abdominal GI/Abdominal exam: Present: normal bowel sounds, soft. Absent: guarding, tenderness - Additional comments: no smith - Extremities Exam Extremities exam: Present: pedal edema (1+), warm, radial pulses palpable and symmetrical - Back Exam Back exam: Present: normal inspection. Absent: paraspinal tenderness, tenderness - Neurological Exam Neurological exam: Present: alert, oriented X3, no focal deficits. Absent: speech deficit - Psychiatric Psychiatric exam: Present: normal affect, normal mood - Skin Skin exam: Present: dry, normal color, warm Internal Medicine: Result - Labs CBC & Chem 7: 06/28/17 04:00 06/28/17 04:00 Labs: Short CBC 06/28/17 Range/Units 04:00 WBC 4.5 (4.3-11.1) K/mcL Hgb 11.5 L (12.9-16.9) g/dL Hct 35.9 L (37.5-50.1) % Plt Count 143 (140-400) K/mcL Neutrophils # 3.0 (1.6-8.9) K/mcL BMP 06/28/17 04:00 Sodium 142 Potassium 3.6 Chloride 97 L Carbon Dioxide 35 H BUN 30 H Creatinine 1.55 H Glucose 107 H Calcium 8.7 - ABG Interpretation ABG results: PT/INR, D-dimer PT 18.9 Seconds (9.4-12.1) H 06/28/17 04:00 - Pulse Oximetry Interpretation Digit-Finger Pulse Oximetry Readin (3L O2 via NC) - Impressions ECHO: Impressions: LVEF 30%. Severe global left ventricular systolic dysfunction. Indeterminate diastolic function. Mildly dilated right ventricle with mildly reduced function. Mild-moderate mitral regurgitation. No evidence of pulmonary hypertension. RVSP could be underestimated. A device lead was visualized in the right atrium and right ventricle. - VTE Documentation of Mechanical Device: Graduated compression elastic hosiery Consult Discharge Plan - Plan Referrals: Fabrizio Campbell MD [Primary Care Provider] - <Ethel Hyde - Last Filed: 06/28/17 17:32> Date of Encounter: 06/28/17 - Assessment and plan (1) Acute exacerbation of CHF (congestive heart failure) Current Visit: Yes Status: Acute Qualifiers: Congestive heart failure type: systolic Qualified Code(s): I50.23 - Acute on chronic systolic (congestive) heart failure (2) Atrial fibrillation Current Visit: No Status: Chronic Qualifiers: Atrial fibrillation type: unspecified Qualified Code(s): I48.91 - Unspecified atrial fibrillation (3) HTN (hypertension) Current Visit: No Status: Chronic Qualifiers: Hypertension type: essential hypertension Qualified Code(s): I10 - Essential (primary) hypertension (4) Diabetes Current Visit: Yes Status: Chronic Qualifiers: Diabetes mellitus type: type 2 Diabetes mellitus complication status: without complication Diabetes mellitus long term acute care registered nurse insulin use: with longterm use Qualified Code(s): E11.9 - Type 2 diabetes mellitus without complications ; Z79.4 - USP (current) use of insulin; Z79.4 - roasterman (current) use of insulin; Z79.4 - USP (current) use of insulin; Z79.4 - roasterman ( current) use of insulin (5) Elevated troponin Current Visit: No Status: Chronic (6) CKD (chronic kidney disease) Current Visit: No Status: Chronic Qualifiers: Chronic kidney disease stage: stage 3 (moderate) Qualified Code(s): N18.3 - Chronic kidney disease, stage 3 (moderate) (7) Pleural effusion Current Visit: No Status: Acute (8) CAD (coronary artery disease) Current Visit: No Status: Chronic Qualifiers: Coronary Disease-Associated Artery/Lesion type: [place] artery [place] vs. transplanted heart: [place] heart Associated angina: without angina Qualified Code(s): I25.10 - Atherosclerotic heart disease of [place] coronary artery without angina pectoris (9) DVT prophylaxis Current Visit: No Status: Chronic - Constitutional Vitals: Temp Pulse Resp BP Pulse Ox 97.8 F 89 16 140/84 91 06/28/17 15:08 06/28/17 15:08 06/28/17 15:36 06/28/17 15:08 06/28/17 15:36 Internal Medicine: Result - Labs CBC & Chem 7: 06/28/17 04:00 06/28/17 04:00 Labs: Short CBC 06/28/17 Range/Units 04:00 WBC 4.5 (4.3-11.1) K/mcL Hgb 11.5 L (12.9-16.9) g/dL Hct 35.9 L (37.5-50.1) % Plt Count 143 (140-400) K/mcL Neutrophils # 3.0 (1.6-8.9) K/mcL BMP 06/28/17 04:00 Sodium 142 Potassium 3.6 Chloride 97 L Carbon Dioxide 35 H BUN 30 H Creatinine 1.55 H Glucose 107 H Calcium 8.7 - ABG Interpretation ABG results: PT/INR, D-dimer PT 18.9 Seconds (9.4-12.1) H 06/28/17 04:00 - Impressions Impressions Echocardiogram 06/28/17 12:21 Impressions: LVEF 30%. Severe global left ventricular systolic dysfunction. Indeterminate diastolic function. Mildly dilated right ventricle with mildly reduced function. Mild-moderate mitral regurgitation. No evidence of pulmonary hypertension. RVSP could be underestimated. A device lead was visualized in the right atrium and right ventricle. Left Ventricular Wall Motion: Rest Echo Findings The apex, apical inferior, mid inferior, basal inferior, apical anterior, mid anterior, basal anterior, apical septal, mid inferior septal, basal inferior septal, apical lateral, mid anterior lateral, basal anterior lateral, mid anterior septal, mid inferior lateral, basal anterior septal and basal inferior lateral yanez were hypokinetic. Findings: Study Quality * Technically adequate exam. ECG Findings * Atrial fibrillation. Left Ventricle * LVEF 30%. * Normal LV chamber size. * Severe global left ventricular systolic dysfunction. * Indeterminate diastolic function. Right Ventricle * Mildly dilated right ventricle with mildly reduced function. Left Atrium * Moderately dilated left atrium. Right Atrium * Mildly dilated right atrium. Interatrial Septum * Interatrial septum not well evaluated. Aortic Valve * Aortic valve not well visualized. * Grossy, calcified aortic valve leaflets. * No aortic regurgitation. * No aortic stenosis. Mitral Valve * Mild mitral annular calcification. * No mitral stenosis. * Mild-moderate mitral regurgitation. Tricuspid Valve * Normal tricuspid valve structure and function. * Trace tricuspid regurgitation. * No evidence of pulmonary hypertension. RVSP could be underestimated. Pulmonic Valve * Pulmonic valve not well visualized. * No pulmonic regurgitation. Aorta * Normally sized aortic root. Pericardium * The pericardium appears normal. IVC * Normal IVC dimensions and inspiratory collapse. Pulmonary Artery * Normal visualized portions of the main pulmonary artery. Device lead * A device lead was visualized in the right atrium and right ventricle. - Attending Attestation I have seen and examined pt independently. I have discussed with resident physician Dr Garcias regarding the management plan. Agree with the documentation. Pt feels better, still has leg swelling. Cont iv lasix to reach euvolemic.
[2017-06-28] MEDS ORDERED: *HR* Warfarin 7.5 MG TABLET PO ONE (18:00)
[2017-06-28] MEDS ORDERED: *HR* Warfarin 4 MG TABLET PO SCH (18:00)
[2017-06-28] MEDS: Budesonide/Formoterol 160/4.5 MDI IH SCH (19:58)
[2017-06-28] MEDS: Insulin DETEMIR 100 UNIT/ML X5UNITS SQ SCH (21:12)
[2017-06-28] MEDS: Finasteride 5 MG TABLET PO SCH (21:12)
[2017-06-29] MEDS: Ipratropium/Albuterol Neb 3 ML IH SCH ×4 (00:15→11:11)
[2017-06-29 04:53] LABS: Hematocrit 35.9 % (37.5-50.1); Hemoglobin 11.5 g/dL (12.9-16.9); Mean Corpuscular Hemoglobin 31.4 pg (28.0-33.3); Mean Corpuscular Volume 98.1 fL (83.0-100.0); Mean Platelet Volume 9.6 fL (9.4-12.4); Platelet Count 150 K/mcL (140-400); Red Blood Count 3.66 M/mcL (4.19-5.50); Red Cell Distribution Width 14.2 % (11.5-14.5)
[2017-06-29 05:09] LABS: Calcium 8.7 mg/dL (8.6-10.8); Potassium 3.7 mEq/L (3.5-4.5)
[2017-06-29 05:48] LABS: INR 1.7; Prothrombin Time 18.6 Seconds (9.4-12.1)
[2017-06-29 07:11] VITALS: BP 127/70
[2017-06-29] MEDS: Budesonide/Formoterol 160/4.5 MDI IH SCH (07:28)
[2017-06-29] MEDS: Cholecalciferol (D-3) 1,000 UNIT TABLET PO SCH (09:11)
[2017-06-29] MEDS: Furosemide 40 MG/4 ML VIAL IVP SCH (09:11)
[2017-06-29] MEDS: Metoprolol XL (24 HR) Succ 50 MG TAB.ER.24H PO SCH (09:11)
[2017-06-29] MEDS: Lisinopril 20 MG TABLET PO SCH (09:11)
[2017-06-29] MEDS: Insulin LISPRO 300 UNITS/3 ML VIAL SQ SCH (09:13)
--- NOTE | 2017-06-29 09:52 | Discharge Summary ---
<Reynold Garcias - Last Filed: 06/29/17 09:47> Date of Encounter: 06/29/17 Time of Encounter: 07:50 - Discharge Diagnosis (1) Acute exacerbation of CHF (congestive heart failure) Priority: Primary Status: Acute Comments: Systolic CHF exacerbation with EF 30% and AICD in place. Increased shortness of breath, elevated BNP, chest x-ray reveals pleural effusion. Increased Lasix to 60mg PO twice a day and started low does Spironolactone Strict I/O, fluid restriction Supportive treatment with oxygen and as needed BiPAP Cont BB and ACEI Cardiology input appreciated. Repeat CXR reveals persistent but improved bilateral pleural effusions, left larger than right, along with persistent but improved bibasilar likely atelectasis, also left worse than right. Stable pulmonary vascular congestion without overt pulmonary edema. Qualifiers: Congestive heart failure type: systolic Qualified Code(s): I50.23 - Acute on chronic systolic (congestive) heart failure (2) CAD (coronary artery disease) of artery bypass graft Priority: Secondary Status: Acute Comments: Denies chest pain. Continue home medications Qualifiers: [place] vs. transplanted heart: [place] heart Associated angina: with stable angina Qualified Code(s): I25.708 - Atherosclerosis of coronary artery bypass graft(s), unspecified, with other forms of angina pectoris (3) Atrial fibrillation Priority: Secondary Status: Chronic Comments: Heart rate is well controlled. Continue to titrate BB as needed. SBP improved. On Coumadin for anticoagulation. Qualifiers: Atrial fibrillation type: unspecified Qualified Code(s): I48.91 - Unspecified atrial fibrillation (4) ICD (implantable cardioverter-defibrillator) in place Priority: Secondary Status: Chronic Comments: Continue outpatient follow up (5) Elevated troponin level Priority: Primary Status: Chronic Comments: Mild trop. Has hx of chronic mild trops. CP free. Hx of CAD. Echo shows EF unchanged at 30%. No further ischemic evaluation at this time. Patient agrees with plan. (6) HTN (hypertension) Priority: Secondary Status: Chronic Comments: Continue home medications Qualifiers: Hypertension type: essential hypertension Qualified Code(s): I10 - Essential (primary) hypertension (7) CKD (chronic kidney disease) Priority: Secondary Status: Chronic Comments: Creatinine level is Stable at baseline Follow up with Nephrology as scheduled. Qualifiers: Chronic kidney disease stage: stage 3 (moderate) Qualified Code(s): N18.3 - Chronic kidney disease, stage 3 (moderate) (8) COPD (chronic obstructive pulmonary disease) Priority: Primary Status: Chronic Comments: Patient is on 3L supplemental O2 this AM and reports wheezing. 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 Anderson but was not able to fill his Rx for Symbicort because it was too expensive. health services rn consulted, patient has not met his deductible this year, any inhaler will be expensive Qualifiers: COPD type: unspecified COPD Qualified Code(s): J44.9 - Chronic obstructive pulmonary disease, unspecified (9) Chronic respiratory failure with hypoxia, on home O2 therapy Priority: Primary Status: Acute Comments: Acute on chronic Patient wears 2L supplemental O2 via NC at baseline (10) Diabetes Priority: Secondary Status: Chronic Comments: Continue basal and sliding scale insulin Qualifiers: Diabetes mellitus type: type 2 Diabetes mellitus complication status: without complication Diabetes mellitus security support analyst insulin use: with senior living use Qualified Code(s): E11.9 - Type 2 diabetes mellitus without complications ; Z79.4 - residential (current) use of insulin; Z79.4 - coin rolling machine operator (current) use of insulin; Z79.4 - residential (current) use of insulin; Z79.4 - residential ( current) use of insulin (11) Obesity (BMI 30-39.9) Priority: Secondary Status: Acute Comments: BMI 36.1 Diet modification and exercise discussed (12) DVT prophylaxis Priority: Primary Status: Acute Comments: Coumadin Outpatient monitoring - Discharge Medications Prescriptions: Budesonide/Formoterol 160/4.5 [Symbicort 160/4.5] 2 puff IH BIDR #1 inhaler Furosemide [Lasix] 60 mg PO BID #90 tablet Lisinopril [Zestril] 40 mg PO DAILY #30 tablet Potassium Chloride 10 meq PO DAILY #30 tab.er.prt Spironolactone [Aldactone] 12.5 mg PO DAILY #30 tablet Home Medications: Cholecalciferol (D-3) [Vitamin D] 2,000 unit PO DAILY 01/13/17 [History] Clopidogrel [Plavix] 75 mg PO DAILY 01/13/17 [History] Docusate [Colace] 100 mg PO BID 01/13/17 [History] Finasteride [Proscar] 5 mg PO HS 01/13/17 [History] Insulin ASPART [NovoLOG] 29 unit SQ TIDWM 01/13/17 [History] Insulin NPH Human Isophane [Novolin N] 20 unit SQ QAM 01/13/17 [History] Levothyroxine [Synthroid] 150 mcg PO QAM 01/13/17 [History] Metoprolol Succinate 100 mg PO DAILY 01/13/17 [History] Simvastatin [Zocor] 20 mg PO HS 01/13/17 [History] Warfarin [Coumadin] 7.5 mg PO Q72H 04/29/17 [History] Fluticasone Propionate Nasal [Flonase] 50 mcg NS DAILY PRN 06/25/17 [History] Insulin NPH Human Isophane [Novolin N] 15 unit SQ HS 06/25/17 [History] Oxymetazoline HCl [Afrin] 1 spray NS DAILY PRN 06/25/17 [History] Acetaminophen [Tylenol] 650 mg PO Q6HR PRN tablet 06/29/17 [Rx] Budesonide/Formoterol 160/4.5 [Symbicort 160/4.5] 2 puff IH BIDR #1 inhaler [Rx] Furosemide [Lasix] 60 mg PO BID #90 tablet 06/29/17 [Rx] Lisinopril [Zestril] 40 mg PO DAILY #30 tablet 06/29/17 [Rx] Potassium Chloride 10 meq PO DAILY #30 tab.er.prt 06/29/17 [Rx] Spironolactone [Aldactone] 12.5 mg PO DAILY #30 tablet 06/29/17 [Rx] Allergies/Adverse Reactions: 3 Allergy/AdvReac Type Severity Reaction Status Date / Time No Known Allergies Allergy Verified 06/25/17 16:00 Procedures/tests Complete & Pending: Procedures Performed prior 72 hours Category Date Time Status EV echocardiogram Routine Y 06/28/17 12:21 Completed Date of admission: 06/25/17 23:12 Primary care physician: Fabrizio Campbell MD Consults: 06/25/17 23:45 Consult to Cardiology [CONS] Routine Comment: Consulting Provider: Cardiology Ophelia Reason for Consult: CHF exacerbation Time Notified: 23:45 Call Completed: No 06/26/17 13:49 Consult to Occupational Therapy [CONS] Routine Comment: Evaluate, develop and implement POC Reason for Consult: Weakness Consult to Physical Therapy [CONS] Routine Comment: Evaluate, develop and implement POC Reason for Consult: Weakness 06/28/17 14:59 Consult to Security Systems Engineer [CONS] Routine Reason for SW Consult: Patient reports unable to afford Symbicort/ Ventolin inhalers Discharging clinician: Reynold Garcias Anticipated date of discharge: 06/29/17 - Patient Status Disposition: Home, Self-Care Condition: Fair Functional capacity at discharge: independent ambulation Overall status at discharge: patient is progressing back to baseline - Ambulatory Orders Ambulatory Orders: Prothrombin Time INR [COAG] Time Frame: 07/01/17, Location: N/A - Discharge Instructions Follow Up With: Fabrizio Campbell MD [Primary Care Provider] - 07/01/17 1:00 pm Additional Instructions: Increased Lasix to 60mg PO daily, start low dose potassium supplement and low dose Spironolactone (PCP will need to monitor potassium levels) Repeat INR level in 2 days and follow up with PCP within 2-3 days for Coumadin level adjustment Call Dr. Anderson's office to see if able to provide substitute for Symbicort - Diet and Activity Activity: increase activity as tolerated, wear oxygen at all times Diet: low fat, low cholesterol, low salt diet, other (fluid restricted diet, less than 1.5 liters per day) Hospital course: Mr. Sanchez is a 87 year old male with a past medical history of atrial fibrillation anticoagulated on Coumadin, cardiomyopathy with pacemaker, CHF, CAD s/p CABG 10 years ago, diabetes, hypertension, and CKD stage 3 that presented due to increasing shortness of breath and lower extremity swelling over the past 2 weeks. He had a recent admission to this facility in April 2017 for CHF exacerbation and his home dose of Lasix was increased. He states that he has been compliant with his medications fluid restriction as well as diet. Lab work revealed supratherapeutic INR, elevated BNP, troponin 0.18, and chest x-ray with moderate left and small right pleural effusion that was stable and was mildly increased when compared to previous exam. Patient was given Lasix in the ER and has been admitted for further workup and evaluation. Cardiology was consulted and attributed troponemia to CKD and CHF exacerbation. His Lasix PO was increased, Patient started on low dose Potassium supplementation, and low dose Spironolactone. Patient also instructed to have repeat INR level in 2 days and follow up with PCP in 2-3 days. Case discussed with daughter and all questions were answered at bedside. - Time Spent with Patient Total time spent providing and/or coordinating discharge services: - Constitutional Vitals: Temp Pulse Resp BP Pulse Ox 97.9 F 82 15 127/70 92 06/29/17 07:06 06/29/17 07:06 06/29/17 07:30 06/29/17 07:06 06/29/17 08:00 General appearance: Present: cooperative, A&O X 3, no acute distress, obese, answers questions appropriately Exam: - Head Head exam: Present: atraumatic - Eye Eye exam: Present: EOMI, conjuntiva pink, sclera anicteric - ENT ENT exam: Present: mucous membranes moist, normal oropharynx - Neck Neck exam general surgery: Present: normal inspection, supple - Respiratory Respiratory exam: Present: wheezes (expiratory). Absent: accessory muscle use, respiratory distress - Cardiovascular Cardiovascular exam: Present: irregular rhythm, +S1, +S2 - GI/Abdominal GI/Abdominal exam: Present: normal bowel sounds, soft. Absent: guarding, tenderness - Additional comments: no smith - Extremities Exam Extremities exam: Present: pedal edema (1+), warm, radial pulses palpable and symmetrical - Back Exam Back exam: Present: normal inspection. Absent: paraspinal tenderness, tenderness - Neurological Exam Neurological exam: Present: alert, oriented X3, no focal deficits. Absent: speech deficit - Psychiatric Psychiatric exam: Present: normal affect, normal mood - Skin Skin exam: Present: dry, normal color, warm - VTE Documentation of Mechanical Device: Graduated compression elastic hosiery <Reyes Baer - Last Filed: 06/29/17 16:53> Date of Encounter: 06/29/17 Procedures/tests Complete & Pending: Procedures Performed prior 72 hours Category Date Time Status EV echocardiogram Routine Y 06/28/17 12:21 Completed Date of admission: 06/25/17 23:12 Primary care physician: Fabrizio Campbell MD Consults: 06/25/17 23:45 Consult to Cardiology [CONS] Routine Comment: Consulting Provider: Cardiology Towner Reason for Consult: CHF exacerbation Time Notified: 23:45 Call Completed: No 06/26/17 13:49 Consult to Occupational Therapy [CONS] Routine Comment: Evaluate, develop and implement POC Reason for Consult: Weakness Consult to Physical Therapy [CONS] Routine Comment: Evaluate, develop and implement POC Reason for Consult: Weakness 06/28/17 14:59 Consult to Security Systems Engineer [CONS] Routine Reason for SW Consult: Patient reports unable to afford Symbicort/ Ventolin inhalers Hospital course: Mr. aSnchez is a 87 year old male - Time Spent with Patient Total time spent providing and/or coordinating discharge services: - Constitutional Vitals: Temp Pulse Resp BP Pulse Ox 97.9 F 82 15 127/70 92 06/29/17 07:06 06/29/17 07:06 06/29/17 07:30 06/29/17 07:06 06/29/17 08:00 - Attending Attestation Acute systolic CHF exacerbation Time spent on this discharge: 40 minutes I examined this patient and my medical decision-making was reviewed with the Resident Physician. I agree with the documented findings, disposition and treatment plan as described except to the extent set forth below.
[2017-06-29] MEDS ORDERED: *HR* Warfarin 7.5 MG TABLET PO ONE (18:00)
== END 2017-06-29 13:40 | disposition home or self-care (01) | DRG 291 ==
LOC: EMEROO 15:57 → 2NENU 15:57 → SUATTDRO 23:12
PROVIDERS: ADMIT Nurse Practitioner Acute Care; ATTEND Internal Medicine

== ENCOUNTER 2018-08-17 07:54 | Inpatient (IN) ==
--- NOTE | 2018-08-17 08:30 | Emergency Department Note ---
Disposition Clinical Impression: Elevated troponin level, ICD (implantable cardioverter-defibrillator) in place Chest pain Qualifiers: Chest pain type: other chest pain Qualified Code(s): R07.89 - Other chest pain CAD (coronary artery disease) Qualifiers: Coronary Disease-Associated Artery/Lesion type: unspecified vessel or lesion type [place] vs. transplanted heart: [place] heart Associated angina: with unstable angina Qualified Code(s): I25.110 - Atherosclerotic heart disease of [place] coronary artery with unstable angina pectoris Disposition: Admitted As Inpatient Condition: Fair General Adult HPI - General Stated complaint: ISABELLE Time Seen by Provider: 08/17/18 07:55 Source: EMS Limitations: no limitations Nursing Notes Reviewed: Yes Vital Signs Reviewed: Yes - History of Present Illness HPI Narrative: 88-year-old male with history of AICD, A. fib, COPD, and open heart surgery presenting with chest pain and shortness of breath. The patient states he has been short of breath for the past 3 days but this morning it became significantly worse. He states he got up to use the restroom and experienced severe shortness of breath as well as pain in his chest overlying his pacemaker. He describes the pain as a burning in his left upper chest but the pain did not resolve for approximately 30-45 minutes. He did have sweating at the time of onset as well. Otherwise he was recently treated at [place] for an acute intracranial hemorrhage and since that time has been taking off his Coumadin and Plavix. He denies any headache or recent falls. Does have a nebulizer at home but did not utilize this today. Otherwise denies any fever, chills, nausea, vomiting, diarrhea, abdominal pain, numbness, tingling, or back pain. Pain Scale: 0 - Related Data Home Medications Medication Instructions Recorded Confirmed Cholecalciferol (D-3) [Vitamin D] 2,000 unit PO DAILY 01/13/17 08/17/18 Docusate [Colace] 100 mg PO BID 01/13/17 08/17/18 Finasteride [Proscar] 5 mg PO HS 01/13/17 08/17/18 Insulin NPH Human Isophane 20 unit SQ HS 01/13/17 08/17/18 [Novolin N] Levothyroxine [Synthroid] 150 mcg PO QAM 01/13/17 08/17/18 Simvastatin [Zocor] 20 mg PO HS 01/13/17 08/17/18 Insulin NPH Human Isophane 15 unit SQ QAM 06/25/17 08/17/18 [Novolin N] Budesonide Neb [Pulmicort Neb] 0.5 mg IH HS 08/17/18 08/17/18 Furosemide [Lasix] 40 mg PO Q48H 08/17/18 08/17/18 Furosemide [Lasix] 80 mg PO Q48H 08/17/18 08/17/18 Insulin Regular, Human [Novolin R] 15 - 20 unit SQ QPM 08/17/18 08/17/18 Insulin Regular, Human [Novolin R] 20 unit SQ QAM 08/17/18 08/17/18 Ipratropium/Albuterol Sulfate 1 vial IH TID 08/17/18 08/17/18 [Iprat-Albut 0.5-3(2.5) mg/3 ml] Metoprolol Succinate [Toprol Xl] 100 mg PO DAILY 08/17/18 08/17/18 Previous Rx's Medication Instructions Recorded Lisinopril [Zestril] 40 mg PO DAILY #30 tablet 06/29/17 Potassium Chloride 10 meq PO DAILY #30 tab.er.prt 06/29/17 Allergies Allergy/AdvReac Type Severity Reaction Status Date / Time No Known Allergies Allergy Verified 07/22/18 10:00 Constitutional: Denies: fever, chills, weakness, weight change Eyes: Denies: eye pain, eye discharge ENT ED: Denies: congestion Cardiovascular: Reports: chest pain, dyspnea on exertion. Denies: palpitations, orthopnea, edema, syncope Respiratory: Reports: dyspnea. Denies: cough, wheezes, hemoptysis, stridor, sputum production Gastrointestinal: Denies: abdominal pain, nausea, vomiting, diarrhea, constipation, hematemesis Genitourinary: Denies: urgency, dysuria, frequency, hematuria, discharge Musculoskeletal: Denies: back pain, neck pain, joint swelling Integumentary: Denies: rash, abrasion, lesions Neurological: Denies: headache, weakness, numbness, paresthesias Psychiatric: Denies: anxiety, depression, suicidal thoughts, homicidal thoughts Endocrine: Denies: fatigue Hematological/Lymphatic: Denies: easy bleeding, easy bruising Past Medical History - Past Medical History Medical history: Reports: atrial fibrillation, cardiomyopathy, CHF, coronary artery disease, diabetes, hypertension, myocardial infarction, renal disease Surgical history: Reports: coronary bypass (CABG), AICD, pacemaker Psychiatric history: Reports: no psych history - Social History Smoking Status: Former smoker Smokeless Tobacco Status: No Alcohol use: Reports: none Drug use: Reports: none Physical Exam - General Limitations: no limitations General appearance: alert, in no apparent distress - Head Head exam: atraumatic, normocephalic - Eye Eye exam: Present: normal appearance, PERRL - ENT ENT exam: normal exam, normal oropharynx, mucous membranes moist - Neck Neck exam: Present: normal inspection, full ROM, trachea midline. Absent: tenderness - Chest Chest inspection: Present: normal inspection, symmetric chest wall rise. Absent: tenderness - Respiratory Respiratory exam: Present: normal lung sounds bilaterally. Absent: respiratory distress, wheezes, stridor - Cardiovascular Cardiovascular exam: Present: normal rhythm, tachycardia, normal heart sounds - Abdominal Exam Abdominal exam: Present: soft, Non-Tender, normal bowel sounds. Absent: distention, guarding, rebound, rigidity - Extremities Exam Extremities exam: Present: normal inspection. Absent: pedal edema - Back Exam Back exam: Present: normal inspection - Neurological Exam Neurological exam: Present: alert, oriented X3, CN II-XII intact - Psychiatric Psychiatric exam: Present: normal affect, normal mood - Skin Skin exam: Present: warm, dry, intact Course Vital Signs Temperature 97.7 F 08/17/18 07:55 Pulse Rate 99 08/17/18 07:55 Respiratory Rate 22 08/17/18 07:55 Blood Pressure 123/75 08/17/18 07:55 O2 Sat by Pulse Oximetry 94 08/17/18 07:55 Temperature 97.5 F L 08/17/18 19:04 Pulse Rate 79 08/17/18 19:04 Respiratory Rate 18 08/17/18 19:04 Blood Pressure 151/82 08/17/18 19:04 O2 Sat by Pulse Oximetry 98 08/17/18 17:27 Oxygen Delivery Oxygen Delivery Nasal Cannula Medical Decision Making - [facility] Narrative Medical decision making narrative: 88-year-old male with history of ASCVD and CAD who presents the emergency department with complaints of chest pain. The patient does have significant cardiac risk factors therefore obtained CBC, BMP, BNP, EKG, troponin, chest x- ray. EKG shows no acute changes with a paced rhythm. Otherwise troponin is elevated but appears approximately the patient's baseline. Chest x-ray shows bilateral pleural effusions with worsening of the left side. Otherwise the patient is clinically stable but given his significant risk factors and continued chest pain will admit the patient. Discussed the case with on-call hospitalist who agrees with plan for admission. Patient agrees with and understands course of treatment plan including plan for admission. All questions answered. - Medical Records Medical records reviewed: Yes I reviewed the patient's medical records. - Lab Data Lab results reviewed: Yes I reviewed the patient's lab results. Result diagrams: 08/17/18 08:17 08/17/18 08:17 Lab Results 08/17/18 08/17/18 08/17/18 Range/Units 08:17 08:17 08:17 WBC 10.5 (4.3-11.1) K/mcL RBC 3.99 L (4.19-5.50) M/mcL Hgb 12.7 L (12.9-16.9) g/dL Hct 39.6 (37.5-50.1) % MCV 99.2 (83.0-100.0) fL MCH 31.8 (28.0-33.3) pg MCHC 32.1 (31.6-35.5) g/dL RDW 13.7 (11.5-14.5) % Plt Count 190 (140-400) K/mcL MPV 9.4 (9.4-12.4) fL Immature Gran % 0.5 (0-4) % Seg Neutrophils % 73.4 % Lymphocytes % 21.1 % Monocytes % 4.7 % Eosinophils % 0.2 % Basophils % 0.1 % Neutrophils # 7.7 (1.6-8.9) K/mcL Lymphocytes # 2.2 (0.6-4.6) K/mcL Monocytes # 0.5 (0.0-1.3) K/mcL Eosinophils # 0.0 (0.0-0.6) K/mcL Basophils # 0.0 (0.0-0.2) K/mcL PT 11.9 (9.4-12.1) Seconds INR 1.1 APTT 32.1 (26.0-36.0) Seconds Sodium 136 (136-145) mEq/L Potassium 4.7 (3.5-5.1) mEq/L Chloride 103 (98-107) mEq/L Carbon Dioxide 27 (23-29) mEq/L BUN 32 H (8-23) mg/dL Creatinine 2.16 H (0.70-1.30) mg/dL Est GFR ( Amer) 35 L (> 60) Est GFR (Non-Af Amer) 29 L (> 60) BUN/Creatinine Ratio 15 (6-26) Glucose 229 H (70-105) mg/dL Calculated Osmolality 296 (280-300) Calcium 8.8 (8.6-10.3) mg/dL Magnesium 2.1 (1.6-2.6) mg/dL Troponin I 0.10 H* (< 0.04) ng/mL B-Natriuretic Peptide (Less than 100) pg/mL Urine Color (Yellow) Urine Clarity (Clear) Urine pH (5.0-8.0) pH Units Ur Specific [place] (1.010-1.025) Urine Protein (Neg-Trace) mg/dL Urine Glucose (UA) (Normal) mg/dL Urine Ketones (Negative) mg/dL Urine Blood (Negative) Urine Nitrite (Negative) Urine Bilirubin (Negative) Urine Urobilinogen (Normal) mg/dL Ur Leukocyte Esterase (Negative) Urine Microscopic RBC (0-3) per hpf Urine Microscopic WBC (0-3) per hpf Ur Squamous Epith Cells (None-Few) per lpf Urine Bacteria (None-Few) per hpf Hyaline Casts (None-Few) per lpf Ur Culture Indicated? (NO) 08/17/18 08/17/18 Range/Units 08:20 08:29 WBC (4.3-11.1) K/mcL RBC (4.19-5.50) M/mcL Hgb (12.9-16.9) g/dL Hct (37.5-50.1) % MCV (83.0-100.0) fL MCH (28.0-33.3) pg MCHC (31.6-35.5) g/dL RDW (11.5-14.5) % Plt Count (140-400) K/mcL MPV (9.4-12.4) fL Immature Gran % (0-4) % Seg Neutrophils % % Lymphocytes % % Monocytes % % Eosinophils % % Basophils % % Neutrophils # (1.6-8.9) K/mcL Lymphocytes # (0.6-4.6) K/mcL Monocytes # (0.0-1.3) K/mcL Eosinophils # (0.0-0.6) K/mcL Basophils # (0.0-0.2) K/mcL PT (9.4-12.1) Seconds INR APTT (26.0-36.0) Seconds Sodium (136-145) mEq/L Potassium (3.5-5.1) mEq/L Chloride (98-107) mEq/L Carbon Dioxide (23-29) mEq/L BUN (8-23) mg/dL Creatinine (0.70-1.30) mg/dL Est GFR ( Amer) (> 60) Est GFR (Non-Af Amer) (> 60) BUN/Creatinine Ratio (6-26) Glucose (70-105) mg/dL Calculated Osmolality (280-300) Calcium (8.6-10.3) mg/dL Magnesium (1.6-2.6) mg/dL Troponin I (< 0.04) ng/mL B-Natriuretic Peptide 588 H (Less than 100) pg/mL Urine Color Yellow (Yellow) Urine Clarity Clear (Clear) Urine pH 6.0 (5.0-8.0) pH Units Ur Specific [place] 1.011 (1.010-1.025) Urine Protein 100 H (Neg-Trace) mg/dL Urine Glucose (UA) 100 H (Normal) mg/dL Urine Ketones Negative (Negative) mg/dL Urine Blood Trace H (Negative) Urine Nitrite Negative (Negative) Urine Bilirubin Negative (Negative) Urine Urobilinogen Normal (Normal) mg/dL Ur Leukocyte Esterase Negative (Negative) Urine Microscopic RBC 0-3 (0-3) per hpf Urine Microscopic WBC 0-3 (0-3) per hpf Ur Squamous Epith Cells Many H (None-Few) per lpf Urine Bacteria None Seen (None-Few) per hpf Hyaline Casts None Seen (None-Few) per lpf Ur Culture Indicated? NO (NO) - Radiology Data Radiology results reviewed: Yes I reviewed the patient's radiology results. Chest X-Ray 08/17/18 08:05 IMPRESSION: 1. Cardiomegaly with pulmonary edema and bilateral pleural effusions, left side greater than right, with associated bibasilar atelectasis. The left pleural effusion appears larger since the 07/22/2018 exam. D/ / 08/17/2018 08:48:49 Lele Russo MD / rima Interpreting Provider: Lele Russo MD - EKG Data EKG #1 EKG attestation: Yes I reviewed and interpreted this EKG. EKG results narrative: Ventricular paced rhythm rate of 111. RI 100, QRS 134, QT 381, QTC 518. No evidence of acute ST elevation. When compared with prior from 07/22/18 there are no significant changes. . Attestation Statement - Attestation Attestation: I, Brad Serrano, examined this patient and my medical decision-making was reviewed with the PIER WORKER/PA/Advanced Practice Nurse/Resident Physician. I agree with the documented findings, disposition and treatment plan as described except to the extent set forth below. 88-year-old male presents emergency Department with concerns of acute onset chest pain. Patient states symptoms started acutely as he got up to the bathroom. He has a history of coronary artery disease status post multiple stents and coronary artery bypass. Patient has an elevated troponin however it is elevated at baseline. EKG did not show evidence of acute STEMI. He feels comfortable with the plan for admission to the hospital for further care and evaluation.
[2018-08-17 08:36] LABS: Basophils % 0.1 %; Eosinophils % 0.2 %; Hematocrit 39.6 % (37.5-50.1); Hemoglobin 12.7 g/dL (12.9-16.9); Immature Granulocytes % 0.5 % (0-4); Lymphocytes # 2.2 K/mcL (0.6-4.6); Lymphocytes % 21.1 %; Mean Corpuscular HGB Conc 32.1 g/dL (31.6-35.5); Mean Corpuscular Hemoglobin 31.8 pg (28.0-33.3); Mean Corpuscular Volume 99.2 fL (83.0-100.0); Mean Platelet Volume 9.4 fL (9.4-12.4); Monocytes # 0.5 K/mcL (0.0-1.3); Monocytes % 4.7 %; Neutrophils # 7.7 K/mcL (1.6-8.9); Platelet Count 190 K/mcL (140-400); Red Blood Count 3.99 M/mcL (4.19-5.50); Red Cell Distribution Width 13.7 % (11.5-14.5); Segmented Neutrophils % 73.4 %
[2018-08-17 08:44] LABS: INR 1.1; Prothrombin Time 11.9 Seconds (9.4-12.1)
[2018-08-17 08:47] LABS: Activated Partial Thrombo Time 32.1 Seconds (26.0-36.0)
[2018-08-17 08:49] LABS: Calcium 8.8 mg/dL (8.6-10.3); Magnesium 2.1 mg/dL (1.6-2.6); Potassium 4.7 mEq/L (3.5-5.1)
[2018-08-17 08:53] LABS: Troponin I 0.1 ng/mL (< 0.04)
[2018-08-17 09:08] LABS: Bilirubin,Urine Negative (Negative); Blood,Urine Trace (Negative); Clarity,Urine Clear (Clear); Color,Urine Yellow (Yellow); Glucose,Urine (UA) 100 mg/dL (Normal); Ketones,Urine Negative (Negative); Leukocyte Esterase,Urine Negative (Negative); Nitrite,Urine Negative (Negative); Protein,Urine 100 mg/dL (Neg-Trace); Specific Gravity,Urine 1.011 (1.010-1.025); Urobilinogen,Urine Normal (Normal)
[2018-08-17 09:10] LABS: Bacteria,Urine None Seen per hpf (None-Few); Hyaline Casts,Urine None Seen per lpf (None-Few); RBC,Urine 0-3 per hpf (0-3); Squamous Epithelial Cell,Urine Many per lpf (None-Few); WBC,Urine 0-3 per hpf (0-3)
[2018-08-17] MEDS ORDERED: Naloxone 0.4 MG/ML INJ IVP PRN (13:10)
[2018-08-17] MEDS ORDERED: methylPREDNISolone 125 MG/2 ML VIAL IVP ONE (13:19)
[2018-08-17] MEDS ORDERED: Ipratropium/Albuterol Neb 3 ML IH PRN (13:22)
[2018-08-17] MEDS ORDERED: Furosemide 40 MG/4 ML VIAL IVP ONE (13:24)
[2018-08-17] MEDS ORDERED: Dextrose Gel 15 GM/37.5 ML TUBE PO PRN ×2 (13:26)
[2018-08-17] MEDS ORDERED: D5% in Water 1,000 ML IVC PRN (13:26)
[2018-08-17] MEDS ORDERED: *HR* Dextrose 50 % in Water (Syg) 50 ML SYRINGE IVP PRN (13:26)
[2018-08-17] MEDS: Azithromycin 500 MG in D5% in Water 250 ML IVPB SCH (14:57)
--- NOTE | 2018-08-17 15:34 | Electrocardiograph Report ---
[place] [id number] Test Date: 2018-08-17 Pat Name: Damon Sanchez Department: EXAM2 Room: 2N03 Gender: M [employer] Lab[employer]: : [id number] Requested By: Serena Hardwick Order Number: [id number] Reading MD: Negrito Preciado Measurements Intervals [place] Rate: 111 P: 0 IL: 100 QRS: -65 QRSD: 134 T: 130 QT: 381 QTc: 518 Interpretive Statements Ventricular-paced complexes No further analysis attempted due to paced rhythm Electronically Signed On 08-17-2018 15:32:23 EST by Negrito Preciado
[2018-08-17] MEDS: Ipratropium/Albuterol Neb 3 ML IH SCH ×2 (16:10→23:35)
[2018-08-17] MEDS: Insulin LISPRO 300 UNITS/3 ML VIAL SQ SCH ×2 (16:43)
[2018-08-17] MEDS: MethylPREDNISolone 40 MG/ML VIAL IVP SCH (19:50)
[2018-08-17] MEDS: Insulin NPH 100 UNIT/ML (x5UNIT) SQ SCH (20:24)
[2018-08-17] MEDS ORDERED: Insulin LISPRO 300 UNITS/3 ML VIAL SQ SCH (21:00)
--- NOTE | 2018-08-17 21:07 | Internal Med History&Physical ---
Date of Encounter: 08/17/18 Time of Encounter: 11:00 Internal Medicine - H&P: HPI Chief complaint: DIFFICULTY BREATHING Admitted From: Home Plans for Post Hospital Care: Home History of present illness: The patient is an 88-year-old male. He has had underlying COPD and congestive heart failure (ejection fraction was 30% in June 2017). He has had a pacer/AICD inserted. We admitted this patient because of her difficulty breathing. It was in the last 2 mornings, when this patient felt short of breath; with mild cough and wheezing. He was doing better yesterday afternoon/evening. He did well during the last night; not having any orthopnea or nocturnal dyspnea. Denies fever and chills. He does not have any GI/ symptoms. The patient fell on July 27 sustaining intracerebral hemorrhage. He was taking warfarin and Plavix are on that day. He was taken to [facility] in [place], [place]. Some neurological symptoms (mostly difficulty speaking) subsided gradually with time. He is not taking any anticoagulants/antiplatelet medications any longer. PAST MEDICAL HX: The patient has had COPD and systolic heart failure (ejection fraction of 30%). He has had a pacer/AICD inserted. He has underlying atrial fibrillation. Not taking any anticoagulation due to his recently experienced hemorrhagic stroke. He does have coronary artery disease; had CABG surgery about 10 years ago. He is treated for type 2 diabetes mellitus (insulin-dependent), hypertension, hyperlipidemia, BPH and constipation. PAST FAMILY HX: See below.. PAST SOCIAL HX: See below.. REVIEW OF SYSTEMS: All 14 organ systems were reviewed by me with the patient. Positive and pertinent negative findings are listed above. The rest of organ systems is negative. PHYSICAL EXAM: Skin: Free of rash and discoloration. Eyes: Sclera is white. There is no discharge from eyes. ENMT: Oral/pharyngeal mucosa is normal in appearance. There is no discharge from nose or ears. Respiratory: Normal breath sounds with no crackles and wheezes bilaterally. CV: Heart rate is irregularly irregular with no audible murmur. GI: Abdomen is flat and soft with no palpable mass or visceromegaly. : There is no tenderness in patient's flanks bilaterally. Neuro exam: He has good strength in upper and lower extremities. He has normal eye movements. Psychiatric: He has normal affect. His thought process is appropriate to the situation. ADDITIONAL DATA: Chest x-ray shows cardiomegaly with pulmonary edema and bilateral pleural effusi ons; left more than right. Associated with bibasilar atelectasis. ECG shows hemoglobin of 12.7 with WBC of 10.5 thousand and normal platelet count. He has normal electrolytes. His creatinine is 2.16; was 1.49 in June 2017. Random glucose is 229. His troponin is 0.10. His BNP is 588. UA shows glucose of 100 and protein of 100. A/P: COPD exacerbation/acute on chronic systolic heart failure. He required oxygen in the emergency room, as he developed acute hypoxic respiratory failure. xxx. The patient recently received a 10 day course of an antibiotic. I will keep him on IV Zithromax for the next 5 days. I will start him on IV Solu- Medrol. He will get nebulizer treatments with DuoNeb. He will get 40 mg of IV Lasix today afternoon. Then, he will be taking 40 mg of IV (or by mouth) Lasix every morning. I will continue his Toprol-XL. His lisinopril will be on hold for the next 2-3 days. Type 2 diabetes mellitus, insulin-dependent. xxx. We will keep him on diabetic diet, Humulin and and when necessary Humalog. He may develop hyperglycemia due to ordered IV Solu-Medrol. We will switch him to oral prednisone in a couple days. His other problems are mentioned above. They seem to be stable/controlled. He will not get any anticoagulation for atrial fibrillation due to the reasons mentioned above. Past Med Surg Social Fam HX - Past Medical History Medical history: atrial fibrillation, cardiomyopathy, CHF, coronary artery disease, diabetes, hypertension, myocardial infarction, renal disease Additional medical history: home 02 Psychiatric history: no psych history - Past Surgical History Surgical History: coronary bypass (CABG), AICD, pacemaker - Social History Smoking Status: Former smoker Smokeless Tobacco Status: No Alcohol use: none Drug use: none - Family History Father Living Status: Hx Family Cardiac Disorders: Yes Mother Living Status: Hx Family Cardiac Disorders: Yes Internal Medicine - H&P: Meds Cholecalciferol (D-3) [Vitamin D] 2,000 unit PO DAILY 01/13/17 [History] Docusate [Colace] 100 mg PO BID 01/13/17 [History] Finasteride [Proscar] 5 mg PO HS 01/13/17 [History] Insulin NPH Human Isophane [Novolin N] 20 unit SQ HS 01/13/17 [History] Levothyroxine [Synthroid] 150 mcg PO QAM 01/13/17 [History] Simvastatin [Zocor] 20 mg PO HS 01/13/17 [History] Insulin NPH Human Isophane [Novolin N] 15 unit SQ QAM 06/25/17 [History] Lisinopril [Zestril] 40 mg PO DAILY #30 tablet 06/29/17 [Rx] Potassium Chloride 10 meq PO DAILY #30 tab.er.prt 06/29/17 [Rx] Budesonide Neb [Pulmicort Neb] 0.5 mg IH HS 08/17/18 [History] Furosemide [Lasix] 40 mg PO Q48H 08/17/18 [History] Furosemide [Lasix] 80 mg PO Q48H 08/17/18 [History] Insulin Regular, Human [Novolin R] 15 - 20 unit SQ QPM 08/17/18 [History] Insulin Regular, Human [Novolin R] 20 unit SQ QAM 08/17/18 [History] Ipratropium/Albuterol Sulfate [Iprat-Albut 0.5-3(2.5) mg/3 ml] 1 vial IH TID 08/17/18 [History] Metoprolol Succinate [Toprol Xl] 100 mg PO DAILY 08/17/18 [History] Allergy/AdvReac Type Severity Reaction Status Date / Time No Known Allergies Allergy Verified 07/22/18 10:00 - Constitutional Vitals: Temp Pulse Resp BP Pulse Ox 97.5 F L 79 18 151/82 98 08/17/18 19:04 08/17/18 19:04 08/17/18 19:04 08/17/18 19:04 08/17/18 17:27 General appearance: Present: A&O X 3, no acute distress, answers questions appropriately Exam: XX Internal Med - H&P Results - Labs CBC & Chem 7: 08/17/18 08:17 08/17/18 08:17 Labs: Short CBC 08/17/18 Range/Units 08:17 WBC 10.5 (4.3-11.1) K/mcL Hgb 12.7 L (12.9-16.9) g/dL Hct 39.6 (37.5-50.1) % Plt Count 190 (140-400) K/mcL Neutrophils # 7.7 (1.6-8.9) K/mcL BMP 08/17/18 08:17 Sodium 136 Potassium 4.7 Chloride 103 Carbon Dioxide 27 BUN 32 H Creatinine 2.16 H Glucose 229 H Calcium 8.8 Cardiac Enzymes 08/17/18 Range/Units 08:17 Troponin I 0.10 H* (< 0.04) ng/mL Urine 08/17/18 Range/Units 08:29 Urine Color Yellow (Yellow) Urine Clarity Clear (Clear) Urine pH 6.0 (5.0-8.0) pH Units Ur Specific [place] 1.011 (1.010-1.025) Urine Protein 100 H (Neg-Trace) mg/dL Urine Glucose (UA) 100 H (Normal) mg/dL - Impressions ITS Impressions Chest X-Ray 08/17/18 08:05 IMPRESSION: 1. Cardiomegaly with pulmonary edema and bilateral pleural effusions, left side greater than right, with associated bibasilar atelectasis. The left pleural effusion appears larger since the 07/22/2018 exam. 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: with detention use Diabetes mellitus complication status: without complication Qualified Code(s): E11.9 - Type 2 diabetes mellitus without complications; Z79.4 - jail (current) use of insulin (5) Atrial fibrillation Current Visit: Yes Status: Chronic Qualifiers: Atrial fibrillation type: chronic Qualified Code(s): I48.2 - Chronic atrial fibrillation - Time Spent With Patient Total time spent is greater than 50% in coordination of care (as documented) at patient's floor/unit and/or counseling patient: - VTE Reasons for not Prescribing Prophylaxis: Treatment not Indicated - Low risk for VTE Deep Vein Thrombosis/Pulmonary Embolism Present on Admission: No
[2018-08-17] MEDS: Finasteride 5 MG TABLET PO SCH (22:57)
[2018-08-17] MEDS: Budesonide Neb 0.5 MG/2 ML IH SCH (23:35)
[2018-08-18] MEDS: MethylPREDNISolone 40 MG/ML VIAL IVP SCH ×2 (01:54→07:44)
[2018-08-18] MEDS: Ipratropium/Albuterol Neb 3 ML IH SCH ×4 (05:29→22:16)
[2018-08-18 07:05] LABS: Hematocrit 36.2 % (37.5-50.1); Hemoglobin 11.8 g/dL (12.9-16.9); Mean Corpuscular HGB Conc 32.6 g/dL (31.6-35.5); Mean Corpuscular Hemoglobin 31.9 pg (28.0-33.3); Mean Corpuscular Volume 97.8 fL (83.0-100.0); Mean Platelet Volume 9.4 fL (9.4-12.4); Platelet Count 185 K/mcL (140-400); Red Cell Distribution Width 13.4 % (11.5-14.5)
[2018-08-18 07:28] LABS: Calcium 8.9 mg/dL (8.6-10.3); Magnesium 2.1 mg/dL (1.6-2.6); Potassium 4.2 mEq/L (3.5-5.1)
[2018-08-18] MEDS: Metoprolol XL (24 HR) Succ 50 MG TAB.ER.24H PO SCH (07:43)
[2018-08-18] MEDS: Furosemide 40 MG/4 ML VIAL IVP SCH (07:44)
[2018-08-18] MEDS: Insulin LISPRO 300 UNITS/3 ML VIAL SQ SCH ×7 (07:44→20:45)
[2018-08-18 07:45] LABS: Lymphocytes # 1.4 K/mcL (0.6-4.6); Monocytes # 0.2 K/mcL (0.0-1.3); Neutrophils # 10.3 K/mcL (1.6-8.9)
[2018-08-18 07:46] LABS: Platelet Estimate Normal (Normal)
[2018-08-18] MEDS: Insulin NPH 100 UNIT/ML (x5UNIT) SQ SCH ×2 (07:50→20:44)
--- NOTE | 2018-08-18 11:31 | Internal Med Progress Note ---
Hospitalist Progress Note - Encounter Date of Encounter: 08/18/18 Time of Encounter: 09:00 - Subjective Interval History: Patient feels less shortness of breath. Still mild dry cough. No fever. Vitals are stable. - Exam Vitals: Temp Pulse Resp BP Pulse Ox 97.8 F 99 16 101/81 92 08/18/18 10:28 08/18/18 10:28 08/18/18 10:28 08/18/18 10:28 08/18/18 10:28 Exam: Pt is AAO x 3, in NAD HEENT: NC/AT, PERRL Neck: Supple, no JVD, no LAD Lungs: Coarse breath sounds bilaterally, no wheezing or rhonchi Heart: S1S2, RRR Abd: Soft, nontender, BS present Ext: ROM wnl, no pedal edema Neuro: No focal deficit - Assessment and Plan (1) Atrial fibrillation Current Visit: Yes Status: Chronic Assessment and Plan: Continue home metoprolol for rate control. No AC because of recent (2 month ago) fall which caused intracranial bleeding. (2) COPD exacerbation Current Visit: Yes Status: Acute Assessment and Plan: Patient has dry cough, wheezing, improved after steroid and nebulizer treatment. Consider COPD exacerbation. - Respiratory viral panel - Continue antibiotics, steroids, and nebulizer treatment - Continue supportive and symptomatic treatment. (3) Acute on chronic systolic heart failure Current Visit: Yes Status: Acute Assessment and Plan: Patient presented with shortness of breath. With elevated BNP. Chest x-ray shows pulmonary edema. History of systolic CHF with LVEF 30% on AICD. - Place patient on fluid restriction - Strict I and O - Lasix IV 40 mg daily - We will continue home beta alicia and EMILI inhibitor upon discharge (4) Acute respiratory failure with hypoxia Current Visit: Yes Status: Acute (5) Type 2 diabetes mellitus Current Visit: Yes Status: Acute Assessment and Plan: Continue basal, prandial, and sliding scale insulin. Adjust dose per glucose level (6) HTN (hypertension) Current Visit: No Status: Chronic Assessment and Plan: BP is not high. Will continue home medications (7) CKD (chronic kidney disease) Current Visit: No Status: Chronic Assessment and Plan: Cr level is at baseline. Avoid the nephrotoxic medications. (8) Elevated troponin level Current Visit: Yes Status: Chronic Assessment and Plan: Mild elevated troponin. Patient denies chest pain. EKG unremarkable. Patient has CHF and COPD. Possibly demand ischemia. Continue cardiac monitoring. - Time Spent with Patient Total time spent is greater than 50% in coordination of care (as documented) at patient's floor/unit and/or counseling patient: 30 minutes 25 - 35 minutes Plan of Care Discussed with: patient Internal Medicine: Result - Labs CBC & Chem 7: 08/18/18 06:36 08/18/18 06:36 Labs: Short CBC 08/18/18 Range/Units 06:36 WBC 12.0 H (4.3-11.1) K/mcL Hgb 11.8 L (12.9-16.9) g/dL Hct 36.2 L (37.5-50.1) % Plt Count 185 (140-400) K/mcL Neutrophils # 10.3 H (1.6-8.9) K/mcL BMP 08/18/18 06:36 Sodium 133 L Potassium 4.2 Chloride 99 Carbon Dioxide 26 BUN 35 H Creatinine 1.89 H Glucose 300 H Calcium 8.9 - ABG Interpretation ABG results: PT/INR, D-dimer PT 11.9 Seconds (9.4-12.1) 08/17/18 08:17 - VTE Reasons for not Prescribing Prophylaxis: Treatment not Indicated - Low risk for VTE Deep Vein Thrombosis/Pulmonary Embolism Present on Admission: No Consult Discharge Plan - Plan Referrals: Fabrizio Campbell MD [Primary Care Provider] - (1) Atrial fibrillation Qualifiers: Atrial fibrillation type: chronic Qualified Code(s): I48.2 - Chronic atrial fibrillation (5) Type 2 diabetes mellitus Qualifiers: Diabetes mellitus ferry terminal 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
[2018-08-18 13:29] LABS: Adenovirus Not Detected (Not Detect); Bordetella Pertussis Not Detected (Not Detect); Chlamydophila pneumoniae Not Detected (Not Detect); Coronavirus 229E Not Detected (Not Detect); Coronavirus HKU1 Not Detected (Not Detect); Coronavirus NL63 Not Detected (Not Detect); Coronavirus OC43 Not Detected (Not Detect); Human Metapneumovirus Not Detected (Not Detect); Human Rhinovirus/Enterovirus Not Detected (Not Detect); Influenza A Subtype 2009 H1 Not Detected (Not Detect); Influenza A Untypeable Not Detected (Not Detect); Influenza B Not Detected (Not Detect); Mycoplasma pneumoniae Not Detected (Not Detect); Parainfluenza Virus 1 Not Detected (Not Detect); Parainfluenza Virus 2 Not Detected (Not Detect); Parainfluenza Virus 3 Not Detected (Not Detect); Parainfluenza Virus 4 Not Detected (Not Detect); Respiratory Syncytial Virus Not Detected (Not Detect)
[2018-08-18] MEDS: Azithromycin 500 MG in D5% in Water 250 ML IVPB SCH (13:47)
[2018-08-18] MEDS ORDERED: Insulin LISPRO 300 UNITS/3 ML VIAL SQ SCH (14:48)
[2018-08-18] MEDS: Finasteride 5 MG TABLET PO SCH (20:44)
[2018-08-18] MEDS: Budesonide Neb 0.5 MG/2 ML IH SCH (22:16)
[2018-08-19] MEDS: Ipratropium/Albuterol Neb 3 ML IH SCH ×4 (03:35→23:22)
[2018-08-19] MEDS: Furosemide 40 MG/4 ML VIAL IVP SCH (07:58)
[2018-08-19] MEDS: predniSONE 20 MG TABLET PO SCH (07:58)
[2018-08-19] MEDS: Metoprolol XL (24 HR) Succ 50 MG TAB.ER.24H PO SCH (07:58)
[2018-08-19] MEDS: Insulin NPH 100 UNIT/ML (x5UNIT) SQ SCH ×2 (07:59→20:13)
[2018-08-19] MEDS: Insulin LISPRO 300 UNITS/3 ML VIAL SQ SCH ×7 (07:59→20:14)
[2018-08-19 08:09] LABS: Calcium 9.1 mg/dL (8.6-10.3); Magnesium 2.3 mg/dL (1.6-2.6)
[2018-08-19] MEDS: Azithromycin 250 MG TABLET PO SCH (08:22)
[2018-08-19 08:24] LABS: Basophils % 0.1 %; Eosinophils % 0.1 %; Hematocrit 36.6 % (37.5-50.1); Immature Granulocytes % 0.3 % (0-4); Lymphocytes # 3.4 K/mcL (0.6-4.6); Lymphocytes % 20.8 %; Mean Corpuscular HGB Conc 32.8 g/dL (31.6-35.5); Mean Corpuscular Volume 97.6 fL (83.0-100.0); Mean Platelet Volume 9.6 fL (9.4-12.4); Monocytes # 0.8 K/mcL (0.0-1.3); Monocytes % 4.9 %; Neutrophils # 11.9 K/mcL (1.6-8.9); Platelet Count 236 K/mcL (140-400); Red Blood Count 3.75 M/mcL (4.19-5.50); Red Cell Distribution Width 14.1 % (11.5-14.5); Segmented Neutrophils % 73.8 %
--- NOTE | 2018-08-19 10:51 | Internal Med Progress Note ---
Hospitalist Progress Note - Encounter Date of Encounter: 08/19/18 Time of Encounter: 09:00 - Subjective Interval History: Patient feels less shortness of breath. Still mild dry cough. No fever. Vitals are stable. Sitting in chair and ask when he can go home. - Exam Vitals: Temp Pulse Resp BP Pulse Ox 97.4 F L 94 20 131/72 95 08/19/18 07:25 08/19/18 07:25 08/19/18 10:32 08/19/18 07:25 08/19/18 10:32 Exam: Pt is AAO x 3, in NAD HEENT: NC/AT, PERRL Neck: Supple, no JVD, no LAD Lungs: Coarse breath sounds bilaterally, no wheezing or rhonchi Heart: S1S2, RRR Abd: Soft, nontender, BS present Ext: ROM wnl, no pedal edema Neuro: No focal deficit - Assessment and Plan (1) Atrial fibrillation Current Visit: Yes Status: Chronic Assessment and Plan: Continue home metoprolol for rate control. No AC because of recent (2 month ago) fall which caused intracranial bleeding. HR around 90. (2) COPD exacerbation Current Visit: Yes Status: Acute Assessment and Plan: Patient has dry cough, wheezing, improved after steroid and nebulizer treatment. Consider COPD exacerbation. - Respiratory viral panel negative - Continue antibiotics, steroids, and nebulizer treatment - Continue supportive and symptomatic treatment. (3) Acute on chronic systolic heart failure Current Visit: Yes Status: Acute Assessment and Plan: Patient presented with shortness of breath. With elevated BNP. Chest x-ray shows pulmonary edema. History of systolic CHF with LVEF 30% on AICD. - Place patient on fluid restriction - Strict I and O - Lasix IV 40 mg daily - We will continue home beta alicia and EMILI inhibitor upon discharge (4) Acute respiratory failure with hypoxia Current Visit: Yes Status: Acute Assessment and Plan: Most likely due to COPD and CHF exacerbation, cont underlying disease treatment. (5) Type 2 diabetes mellitus Current Visit: Yes Status: Acute Assessment and Plan: Continue basal, prandial, and sliding scale insulin. Adjust dose per glucose level (6) HTN (hypertension) Current Visit: No Status: Chronic Assessment and Plan: BP is not high. Will continue home medications (7) CKD (chronic kidney disease) Current Visit: No Status: Chronic Assessment and Plan: Cr level is generally at baseline. Avoid the nephrotoxic medications. Temporarily hold lisinopril (8) Elevated troponin level Current Visit: Yes Status: Chronic Assessment and Plan: Mild elevated troponin. Patient denies chest pain. EKG unremarkable. Patient has CHF and CKD. Possibly demand ischemia. Continue cardiac monitoring. - Time Spent with Patient Total time spent is greater than 50% in coordination of care (as documented) at patient's floor/unit and/or counseling patient: 30 min 25 - 35 minutes Plan of Care Discussed with: patient Internal Medicine: Result - Labs CBC & Chem 7: 08/19/18 07:25 08/19/18 07:30 Labs: Short CBC 08/19/18 Range/Units 07:25 WBC 16.2 H (4.3-11.1) K/mcL Hgb 12.0 L (12.9-16.9) g/dL Hct 36.6 L (37.5-50.1) % Plt Count 236 (140-400) K/mcL Neutrophils # 11.9 H (1.6-8.9) K/mcL BMP 08/19/18 07:30 Sodium 134 L Potassium 4.0 Chloride 98 Carbon Dioxide 26 BUN 51 H Creatinine 2.09 H Glucose 167 H Calcium 9.1 - ABG Interpretation ABG results: PT/INR, D-dimer PT 11.9 Seconds (9.4-12.1) 08/17/18 08:17 - VTE Reasons for not Prescribing Prophylaxis: Treatment not Indicated - Low risk for VTE Deep Vein Thrombosis/Pulmonary Embolism Present on Admission: No Consult Discharge Plan - Plan Referrals: Fabrizio Campbell MD [Primary Care Provider] - (1) Atrial fibrillation Qualifiers: Atrial fibrillation type: chronic Qualified Code(s): I48.2 - Chronic atrial fibrillation (5) Type 2 diabetes mellitus Qualifiers: Diabetes 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
--- NOTE | 2018-08-19 15:07 | Cardiology Consult Note ---
<HudsonLester arevalo Iraida - Last Filed: 08/19/18 16:05> Date of Encounter: 08/19/18 Time of Encounter: 15:01 Assessment and Plan (1) Acute on chronic systolic heart failure Current Visit: Yes Status: Acute Presented with worsening dyspnea, cough, wheezing x 4 days. Inpt at [place] 07/2018 for subdural hematoma. Lasix was decreased at that time d/t OSMAR. BNP 588. CXR cardiomegaly with pulmonary edema and bilateral pleural effusions, left side greater than right, with associated bibasilar atelectasis. Left pleural effusion appears larger since the 07/22/2018 exam. TTE 06/28/17: LVEF 30%. Severe global LV systolic dysfunction. Mildly dilated RV with mildly reduced function. Mild-moderate MR. Agree with IV Lasix--40mg daily. Unable to increase due to OSMRA on CKD. Monitor closely. Obtain repeat CXR. If left pleural effusion persists despite IV diuresis, recommend considering thoracentesis. Recommend strict I/Os, Na and fluid restriction. Transition to PO Lasix prior to d/c. Anticipate sign off once seen and evaluated by Dr. Robertson. (2) NSVT (nonsustained ventricular tachycardia) Current Visit: Yes Status: Acute Consulted for NSVT. Occasional episodes on tele, longest 7 beats. K, Mag, TSH WNL. Continue BB. Known ICMP EF 30% with ICD in place. NSVT noted on prior device checks, not a new finding. (3) CAD (coronary artery disease) Current Visit: Yes Status: Acute Known hx of CAD. S/P CABG 1998. [facility] 2012 reportedly no intervention. Continue Statin, BB. Not on ASA d/t recent subdural hematoma. Qualifiers: Coronary Disease-Associated Artery/Lesion type: unspecified vessel or lesion type [place] vs. transplanted heart: [place] heart Associated angina: with unstable angina Qualified Code(s): I25.110 - Atherosclerotic heart disease of [place] coronary artery with unstable angina pectoris (4) Chest pain Current Visit: Yes Status: Acute Reports occasional left sided chest pain at rest at ICD site. Atypical. Troponin 0.07, 0.10 in setting of acute CHF exac and COPD--suspect demand ischemia. Known EF 30%. Qualifiers: Chest pain type: other chest pain Qualified Code(s): R07.89 - Other chest pain; R07.8 - Other chest pain (5) Atrial fibrillation Current Visit: Yes Status: Chronic Known A-Fib, currently V-paced. Occasional A-Fib with aberrancy noted on tele. Continue BB. Previously anticoagulated on Coumadin, sustained fall and subsequent subdural hematoma 07/2018. AC stopped. Qualifiers: Atrial fibrillation type: chronic Qualified Code(s): I48.2 - Chronic atrial fibrillation (6) Elevated troponin level Current Visit: Yes Status: Chronic Troponin 0.07, 0.10 in setting of OSMAR on CKD, acute on chronic CHF exacerbation and COPD exacerbation. Suspect demand ischemia--nondiagnostic for ACS. Cardiac rehab not warranted. (7) Cardiomyopathy Current Visit: No Status: Chronic ICMP EF 30%. Acute on chronic CHF exacerbation as above. Continue. ACEi being held d/t renal function. Qualifiers: Cardiomyopathy type: ischemic Qualified Code(s): I25.5 - Ischemic cardiomyopathy Discussion w patient/family: The assessment and plan as outlined above was discussed with the patient and/or family members who expressed understanding and agreement. All questions were answered. Thank you for involving us in the care of your patient. Please call with any questions. I will discuss all the above with Dr. Robertson and make changes as necessary. History of Present Illness Consult date: 08/19/18 Requesting physician: Ethel Hyde Consult reason: NSVT, elevated troponin, CHF Chief complaint: dyspnea History of present illness: Mr. Sanchez is a 88 year old male with PMH of A-Fib, CAD s/p CABG, ICMP s/p ICD insertion, systolic CHF (ejection fraction was 30% in June 2017), DM, HLD, HTN, recent subdural hematoma. Pt presented to ED for worsening dyspnea over the past 4 days, cough and wheezing. Denies LE edema. Previously on Coumadin, but pt fell on July 27 sustaining subdural hematoma, transferred to [place] at that time and AC was stopped. He states diuretics were decreased at [place] due to renal function. After being d/c'd home he started noticing worsening dyspnea. Reports occasional pain at pacemaker site on left side of chest at rest. Admitted with CHF and COPD exacerbations. NSVT noted on tele and cardiology consulted for further recs. Troponin 0.07, 0.10. BNP 588. CXR cardiomegaly with pulmonary edema and bilateral pleural effusions, left side greater than right, with associated bibasilar atelectasis. The left pleural effusion appears larger since the 07/22/2018 exam. Prior CV testing: TTE 06/28/17: LVEF 30%. Severe global left ventricular systolic dysfunction. Indeterminate diastolic function. Mildly dilated right ventricle with mildly reduced function. Mild-moderate mitral regurgitation. No evidence of pulmonary hypertension. RVSP could be underestimated. A device lead was visualized in the right atrium and right ventricle. Past Med Surg Social Fam HX - Past Medical History Medical history: atrial fibrillation, cardiomyopathy, CHF, coronary artery disease, diabetes, hypertension, myocardial infarction, renal disease Additional medical history: home Psychiatric history: no psych history - Past Surgical History Surgical History: coronary bypass (CABG), AICD, pacemaker - Social History Smoking Status: Former smoker Smokeless Tobacco Status: No Alcohol use: none Drug use: none - Family History Father Living Status: Hx Family Cardiac Disorders: Yes Mother Living Status: Hx Family Cardiac Disorders: Yes Medications and Allergies Cholecalciferol (D-3) [Vitamin D] 2,000 unit PO DAILY 01/13/17 [History] Docusate [Colace] 100 mg PO BID 01/13/17 [History] Finasteride [Proscar] 5 mg PO HS 01/13/17 [History] Insulin NPH Human Isophane [Novolin N] 20 unit SQ HS 01/13/17 [History] Levothyroxine [Synthroid] 150 mcg PO QAM 01/13/17 [History] Simvastatin [Zocor] 20 mg PO HS 01/13/17 [History] Insulin NPH Human Isophane [Novolin N] 15 unit SQ QAM 06/25/17 [History] Lisinopril [Zestril] 40 mg PO DAILY #30 tablet 06/29/17 [Rx] Potassium Chloride 10 meq PO DAILY #30 tab.er.prt 06/29/17 [Rx] Budesonide Neb [Pulmicort Neb] 0.5 mg IH HS 08/17/18 [History] Furosemide [Lasix] 40 mg PO Q48H 08/17/18 [History] Furosemide [Lasix] 80 mg PO Q48H 08/17/18 [History] Insulin Regular, Human [Novolin R] 15 - 20 unit SQ QPM 08/17/18 [History] Insulin Regular, Human [Novolin R] 20 unit SQ QAM 08/17/18 [History] Ipratropium/Albuterol Sulfate [Iprat-Albut 0.5-3(2.5) mg/3 ml] 1 vial IH TID 08/17/18 [History] Metoprolol Succinate [Toprol Xl] 100 mg PO DAILY 08/17/18 [History] Allergy/AdvReac Type Severity Reaction Status Date / Time No Known Allergies Allergy Verified 07/22/18 10:00 All Systems Review: The remainder of the systems were reviewed and are negative - Cardiovascular Cardiovascular: as per HPI, chest pain at rest, dyspnea at rest, dyspnea on exertion - Respiratory Respiratory: cough, dyspnea Physical Examination Vital Signs, Last 4 Hours Temp Pulse Resp BP Pulse Ox 08/19/18 11:33 98.3 F 94 20 106/61 93 Vital Signs Temp Pulse Resp BP Pulse Ox 08/19/18 11:33 98.3 F 94 20 106/61 93 08/19/18 10:32 20 95 08/19/18 07:25 97.4 F L 94 20 131/72 95 08/19/18 03:44 97.6 F 97 22 139/74 97 08/19/18 03:35 16 96 08/18/18 23:28 89 08/18/18 23:13 97.7 F 96 22 118/61 94 08/18/18 22:16 16 92 08/18/18 20:11 97.7 F 84 20 107/54 96 08/18/18 19:44 88 22 107/54 97 08/18/18 16:02 97.8 F 94 18 96/64 95 08/18/18 15:52 18 96 Intake and Output 08/18/18 08/19/18 08/19/18 23:59 07:59 15:59 Intake Total 360 / 360 Output Total 500 / 500 100 / 100 750 / 750 Balance -500 / -500 -100 / -100 -390 / -390 Intake: Oral 360 / 360 Output: Urine 500 / 500 100 / 100 750 / 750 Other: Meal Breakfast Percent of Meal Consumed 100% Blood Glucose* 149 146 175 General: Conversant, No Apparent Distress HEENT: Atraumatic, Normocephaly, Mucus Membranes Moist Neck: Normal carotid pulses Cardiac: Other (irregularly irregular) Lungs: Normal Breath Sounds, No Wheeze, Rales, Rhonchi Neuro: Alert and responsive, No focal deficits noted Abdomen: Soft, Non-Tender Skin: No rashes noted on visualized skin Musculoskeletal: No Chest Wall Tenderness Extremities: Other (mild BLE edema) Results 08/19/18 07:25 08/19/18 07:30 Lab Results 08/19/18 08/19/18 07:25 07:30 WBC 16.2 H Hgb 12.0 L Hct 36.6 L Plt Count 236 Sodium 134 L Potassium 4.0 Chloride 98 Carbon Dioxide 26 BUN 51 H Creatinine 2.09 H Glucose 167 H Calcium 9.1 Magnesium 2.3 Short CBC 08/19/18 Range/Units 07:25 WBC 16.2 H (4.3-11.1) K/mcL Hgb 12.0 L (12.9-16.9) g/dL Hct 36.6 L (37.5-50.1) % Plt Count 236 (140-400) K/mcL Neutrophils # 11.9 H (1.6-8.9) K/mcL BMP 08/19/18 Range/Units 07:30 Sodium 134 L (136-145) mEq/L Potassium 4.0 (3.5-5.1) mEq/L Chloride 98 (98-107) mEq/L Carbon Dioxide 26 (23-29) mEq/L BUN 51 H (8-23) mg/dL Creatinine 2.09 H (0.70-1.30) mg/dL Glucose 167 H (70-105) mg/dL Calcium 9.1 (8.6-10.3) mg/dL Active Medications Albuterol/Ipratropium (Duoneb) 3 ml [facility]H QIDR [facility] Stop: 02/16/19 17:01 Last Admin: 08/19/18 10:30 Dose: 3 ml Albuterol/Ipratropium (Duoneb) 3 ml IH [id number] PRN PRN Reason: Shortness Of Breath/Wheezing Stop: 02/16/19 13:23 Azithromycin (Zithromax) 500 mg PO DAILY DANIEL Stop: 02/18/19 09:01 Last Admin: 08/19/18 08:22 Dose: 500 mg Budesonide (Pulmicort Neb) 0.5 mg IH HS [facility] Stop: 02/16/19 23:01 Last Admin: 08/18/18 22:16 Dose: 0.5 mg Dextrose/Water (Dextrose 50% (Syg)) 25 ml IVP AD PRN PRN Reason: Hypoglycemia Stop: 02/16/19 13:27 Docusate Sodium (Colace) 100 mg PO BID [facility]; Protocol Stop: 02/16/19 23:01 Last Admin: 08/19/18 07:58 Dose: 100 mg Finasteride (Proscar) 5 mg PO HS [facility]; Protocol Stop: 02/16/19 23:01 Last Admin: 08/18/18 20:44 Dose: 5 mg Furosemide (Lasix) 40 mg IVP DAILY [facility] Stop: 02/17/19 09:01 Last Admin: 08/19/18 07:58 Dose: 40 mg Glucagon (Glucagen) 1 mg IM ONCE PRN PRN Reason: Hypoglycemia Stop: 02/16/19 13:27 Glucose (Gluctose) 15 gm PO ONCE PRN PRN Reason: Hypoglycemia Stop: 02/16/19 13:27 Glucose (Gluctose) 30 gm PO ONCE PRN PRN Reason: Hypoglycemia Stop: 02/16/19 13:27 Dextrose (Dextrose 5%) 1,000 mls @ 100 mls/hr IVC .Q10H PRN PRN Reason: HYPOGLYCEMIA Stop: 02/16/19 13:27 Insulin Human Lispro (Humalog) 6 units 0.05 units/kg (6 units) SQ TIDWM [facility] Stop: 02/16/19 17:01 Last Admin: 08/19/18 11:45 Dose: 6 units Insulin Human Lispro (Humalog) 0 units SQ TIDAC [facility]; Protocol Stop: 02/16/19 16:31 Last Admin: 08/19/18 11:46 Dose: 6 units Insulin Human Lispro (Humalog) 0 units SQ HS [facility]; Protocol Stop: 02/17/19 21:01 Last Admin: 08/18/18 20:45 Dose: Not Given Insulin Human NPH (Humulin N) 20 unit SQ BID [facility] Stop: 02/16/19 21:01 Last Admin: 08/19/18 07:59 Dose: 20 unit Levothyroxine Sodium (Synthroid) 150 mcg PO 0630 [facility] Stop: 02/17/19 06:31 Last Admin: 08/19/18 06:09 Dose: 150 mcg Metoprolol Succinate (Toprol Xl) 100 mg PO DAILY [facility] Stop: 02/17/19 09:01 Last Admin: 08/19/18 07:58 Dose: 100 mg Naloxone HCl (Narcan) 0.4 mg IVP Q2MIN PRN PRN Reason: SEE COMMENTS Stop: 02/16/19 13:11 Prednisone (Prednisone) 40 mg PO DAILY DANIEL Stop: 02/18/19 09:01 Last Admin: 08/19/18 07:58 Dose: 40 mg Simvastatin (Zocor) 20 mg PO HS [facility]; Protocol Stop: 02/16/19 23:01 Last Admin: 08/18/18 20:44 Dose: 20 mg - Imaging and Cardiology Echo: report reviewed - EKG Interpretation EKG results cardiology: personally reviewed (V-Paced), other (12 hr tele AVG HR 95, V-Paced. Occasional episodes A-Fib with aberrancy. NSVT episdoes, longest 7 beat run.) Consult Discharge Plan - Plan Referrals: Fabrizio Campbell MD [Primary Care Provider] - <Abelino Robertson - Last Filed: 08/20/18 04:13> Date of Encounter: 08/20/18 - Attending Attestation I have personally performed a face to face evaluation on this patient. I have reviewed and agree with the care plan. History and Exam by me shows: CC: Shortness of breath HPI: Pt reports four day history of increasing shortness of breath, lower extremity edema. Pt was hospitalized at [facility] mid July following a mechanical fall with resulting subdural hematoma on systemic anticoagulation for primary stroke risk reduction for chronic A fib, His usual dose of lasix was decreased due to acute kidney injury, and has noted increased lower extremity swelling since hospital discharge. He denies chest pain, pressure or palpitations. He has hx CAD, post CABG, with previous anginal pain described as chest pressure, 8/10, provoked by exercise, relieved with rest or sl ntg, which resolved following 3 vessel CABG. He reports has not had reoccurence of those symptoms. ROS: reviewed PMH: reviewed Labs, xray, EKGs reviewed PE: pt seen and examined, agree with findings as documented. IMP/Plan: 1. Acute on chronic systolic heart failure, exacerbation due to decreased diuetic dose, responding well with adequate diuresis on IV lasix, could switch to po 40 mg lasix q d in AM., continue to monitor clinically. 2.Severe triple vessel CAD post CABG x 3 with patent grafts at [facility] 2013, no new signs of acute myocardial ischemia, minimal troponin elevation flat, suspect due to transient demand ischemia and poor renal clearance. 3. NSVT - chronic, monitored with indwelling AICD, present x several years, continue beta alicia 4. A fib: chronic, not a candidate for systemic anticoagulation with recent subdural hematoma. 5. Ischemic cardiomyopathy, last EF 30% 08/02, unchanged, Assessment and Plan Discussion w patient/family: The assessment and plan as outlined above was discussed with the patient and/or family members who expressed understanding and agreement. All questions were answered. Thank you for involving us in the care of your patient. Please call with any questions. History of Present Illness History of present illness: Mr. Sanchez is a 88 year old male All Systems Review: The remainder of the systems were reviewed and are negative Physical Examination Vital Signs, Last 4 Hours Temp Pulse Resp BP Pulse Ox 08/20/18 03:26 97.7 F 86 17 122/84 93 Results 08/19/18 07:25 08/19/18 07:30 Lab Results 08/19/18 08/19/18 07:25 07:30 WBC 16.2 H Hgb 12.0 L Hct 36.6 L Plt Count 236 Sodium 134 L Potassium 4.0 Chloride 98 Carbon Dioxide 26 BUN 51 H Creatinine 2.09 H Glucose 167 H Calcium 9.1 Magnesium 2.3
[2018-08-19] MEDS: Finasteride 5 MG TABLET PO SCH (20:11)
[2018-08-19] MEDS ORDERED: Perflutren Lipid Microsphere 1.3 ML in 0.9 % Sodium Chloride 8.7 ML IVP ONE (20:55)
[2018-08-19] MEDS: Budesonide Neb 0.5 MG/2 ML IH SCH (23:22)
[2018-08-20] MEDS: Ipratropium/Albuterol Neb 3 ML IH SCH ×4 (04:25→23:48)
[2018-08-20 05:28] LABS: Basophils % 0.1 %; Eosinophils % 0.1 %; Immature Granulocytes % 0.3 % (0-4); Lymphocytes # 2.6 K/mcL (0.6-4.6); Lymphocytes % 25.2 %; Mean Corpuscular HGB Conc 32.4 g/dL (31.6-35.5); Mean Corpuscular Hemoglobin 31.5 pg (28.0-33.3); Mean Corpuscular Volume 97.4 fL (83.0-100.0); Mean Platelet Volume 9.5 fL (9.4-12.4); Monocytes # 0.6 K/mcL (0.0-1.3); Monocytes % 5.4 %; Neutrophils # 7.1 K/mcL (1.6-8.9); Platelet Count 188 K/mcL (140-400); Red Blood Count 3.49 M/mcL (4.19-5.50); Red Cell Distribution Width 14.2 % (11.5-14.5); Segmented Neutrophils % 68.9 %
[2018-08-20 05:45] LABS: Calcium 8.8 mg/dL (8.6-10.3); Potassium 3.9 mEq/L (3.5-5.1)
[2018-08-20] MEDS: Insulin LISPRO 300 UNITS/3 ML VIAL SQ SCH ×5 (08:20→20:05)
[2018-08-20] MEDS: predniSONE 20 MG TABLET PO SCH (09:22)
[2018-08-20] MEDS: Azithromycin 250 MG TABLET PO SCH (09:22)
[2018-08-20] MEDS: Furosemide 40 MG/4 ML VIAL IVP SCH (09:23)
[2018-08-20] MEDS: Metoprolol XL (24 HR) Succ 50 MG TAB.ER.24H PO SCH (09:23)
[2018-08-20] MEDS: Insulin NPH 100 UNIT/ML (x5UNIT) SQ SCH ×2 (09:24→20:06)
--- NOTE | 2018-08-20 11:34 | Internal Med Progress Note ---
Hospitalist Progress Note - Encounter Date of Encounter: 08/20/18 Time of Encounter: 09:00 - Subjective Interval History: Patient feels less shortness of breath. No cough. No fever. Vitals are stable. Sitting in chair comfortably. - Exam Vitals: Temp Pulse Resp BP Pulse Ox 97.4 F L 89 18 129/91 97 08/20/18 07:25 08/20/18 09:43 08/20/18 11:04 08/20/18 07:25 08/20/18 11:04 Exam: Pt is AAO x 3, in NAD HEENT: NC/AT, PERRL Neck: Supple, no JVD, no LAD Lungs: CTA bilaterally, no wheezing or rhonchi Heart: S1S2, RRR Abd: Soft, nontender, BS present Ext: ROM wnl, mild pedal edema Neuro: No focal deficit - Assessment and Plan (1) Atrial fibrillation Current Visit: Yes Status: Chronic Assessment and Plan: Continue home metoprolol for rate control. No AC because of recent (2 month ago) fall which caused intracranial bleeding. HR around 79. (2) COPD exacerbation Current Visit: Yes Status: Acute Assessment and Plan: Patient has dry cough, wheezing, improved after steroid and nebulizer treatment. Consider COPD exacerbation. - Respiratory viral panel negative - Continue antibiotics, steroids, and nebulizer treatment - Continue supportive and symptomatic treatment. (3) Acute on chronic systolic heart failure Current Visit: Yes Status: Acute Assessment and Plan: Patient presented with shortness of breath. With elevated BNP. Chest x-ray shows pulmonary edema. History of systolic CHF with LVEF 30% on AICD. - Place patient on fluid restriction - Strict I and O, currently fluid balance - 1380 - Lasix IV 40 mg daily - We will continue home beta alicia and EMILI inhibitor upon discharge (4) Acute respiratory failure with hypoxia Current Visit: Yes Status: Acute Assessment and Plan: Most likely due to COPD and CHF exacerbation, cont underlying disease treatment. (5) Type 2 diabetes mellitus Current Visit: Yes Status: Acute Assessment and Plan: Continue basal, and sliding scale insulin. D/C pradial insulin as glu done after taper down steroid. Adjust dose per glucose level (6) HTN (hypertension) Current Visit: No Status: Chronic Assessment and Plan: BP is not high. Will continue home medications (7) CKD (chronic kidney disease) Current Visit: No Status: Chronic Assessment and Plan: Cr level is generally at baseline. Avoid the nephrotoxic medications. Temp orarily hold lisinopril (8) Elevated troponin level Current Visit: Yes Status: Chronic Assessment and Plan: Mild elevated troponin. Patient denies chest pain. EKG unremarkable. Patient has CHF and CKD. Possibly demand ischemia. Continue cardiac monitoring. (9) NSVT (nonsustained ventricular tachycardia) Current Visit: Yes Status: Acute Assessment and Plan: Cardiology consult appreciate, no specific treatment, cont current BB. DVT Prophylaxis: EPCDs, no AC b/o recent hx of subdural hematoma - Time Spent with Patient Total time spent is greater than 50% in coordination of care (as documented) at patient's floor/unit and/or counseling patient: 30 min 25 - 35 minutes Plan of Care Discussed with: patient Internal Medicine: Result - Labs CBC & Chem 7: 08/20/18 04:51 08/20/18 04:51 Labs: Short CBC 08/20/18 Range/Units 04:51 WBC 10.2 (4.3-11.1) K/mcL Hgb 11.0 L (12.9-16.9) g/dL Hct 34.0 L (37.5-50.1) % Plt Count 188 (140-400) K/mcL Neutrophils # 7.1 (1.6-8.9) K/mcL BMP 08/20/18 04:51 Sodium 137 Potassium 3.9 Chloride 102 Carbon Dioxide 27 BUN 58 H Creatinine 1.93 H Glucose 92 Calcium 8.8 - ABG Interpretation ABG results: PT/INR, D-dimer PT 11.9 Seconds (9.4-12.1) 08/17/18 08:17 - Impressions Impressions Chest X-Ray 08/19/18 15:36 IMPRESSION: Moderate left pleural effusion and left basilar airspace disease are unchanged. New, trace right pleural effusion. D/ / 08/19/2018 16:27:02 Tatiana Parks MD / [facility] Interpreting Provider: Tatiana Parks MD - VTE Reasons for not Prescribing Prophylaxis: Treatment not Indicated - Low risk for VTE Deep Vein Thrombosis/Pulmonary Embolism Present on Admission: No Consult Discharge Plan - Plan Referrals: Fabrizio Campbell MD [Primary Care Provider] - (1) Atrial fibrillation Qualifiers: Atrial fibrillation type: chronic Qualified Code(s): I48.2 - Chronic atrial fibrillation (5) Type 2 diabetes mellitus Qualifiers: Diabetes mellitus intermediate insulin use: with intermediate use Diabetes mellitus complication status: without complication Qualified Code(s): E11.9 - Type 2 di abetes mellitus without complications; Z79.4 - manager long term care (current) use of insulin (6) HTN (hypertension) Qualifiers: Hypertension type: essential hypertension Qualified Code(s): I10 - Essential (primary) hypertension (7) CKD (chronic kidney disease) Qualifiers: Chronic kidney disease stage: stage 3 (moderate) Qualified Code(s): N18.3 - Chronic kidney disease, stage 3 (moderate)
[2018-08-20] MEDS: Finasteride 5 MG TABLET PO SCH (20:04)
[2018-08-20] MEDS: Budesonide Neb 0.5 MG/2 ML IH SCH (23:48)
[2018-08-21] MEDS: Ipratropium/Albuterol Neb 3 ML IH SCH ×4 (03:59→22:41)
[2018-08-21 05:13] LABS: Hematocrit 34.2 % (37.5-50.1); Hemoglobin 11.1 g/dL (12.9-16.9); Immature Granulocytes % 0.3 % (0-4); Lymphocytes # 2.2 K/mcL (0.6-4.6); Lymphocytes % 22.1 %; Mean Corpuscular HGB Conc 32.5 g/dL (31.6-35.5); Mean Corpuscular Hemoglobin 32.3 pg (28.0-33.3); Mean Corpuscular Volume 99.4 fL (83.0-100.0); Mean Platelet Volume 9.4 fL (9.4-12.4); Monocytes # 0.6 K/mcL (0.0-1.3); Monocytes % 5.7 %; Neutrophils # 7.1 K/mcL (1.6-8.9); Platelet Count 184 K/mcL (140-400); Red Blood Count 3.44 M/mcL (4.19-5.50); Segmented Neutrophils % 71.9 %
[2018-08-21 05:28] LABS: Calcium 8.7 mg/dL (8.6-10.3); Potassium 4.1 mEq/L (3.5-5.1)
[2018-08-21] MEDS ORDERED: Insulin LISPRO 300 UNITS/3 ML VIAL SQ SCH (07:26)
[2018-08-21] MEDS: Insulin LISPRO 300 UNITS/3 ML VIAL SQ SCH ×3 (07:53→17:03)
[2018-08-21] MEDS: predniSONE 20 MG TABLET PO SCH (08:03)
[2018-08-21] MEDS: Insulin NPH 100 UNIT/ML (x5UNIT) SQ SCH ×2 (08:03→20:30)
[2018-08-21] MEDS: Metoprolol XL (24 HR) Succ 50 MG TAB.ER.24H PO SCH (08:03)
[2018-08-21] MEDS: Furosemide 40 MG/4 ML VIAL IVP SCH (08:04)
[2018-08-21] MEDS: Azithromycin 250 MG TABLET PO SCH (08:04)
--- NOTE | 2018-08-21 11:43 | Internal Med Progress Note ---
Hospitalist Progress Note - Encounter Date of Encounter: 08/21/18 Time of Encounter: 09:00 - Subjective Interval History: Patient feels less shortness of breath. No cough. No fever. Vitals are stable. Sitting in chair comfortably on breath treatment. - Exam Vitals: Temp Pulse Resp BP Pulse Ox 97.8 F 83 16 124/60 91 08/21/18 11:27 08/21/18 11:27 08/21/18 11:27 08/21/18 11:27 08/21/18 11:27 Exam: Pt is AAO x 3, in NAD HEENT: NC/AT, PERRL Neck: Supple, no JVD, no LAD Lungs: CTA bilaterally, no wheezing or rhonchi Heart: S1S2, RRR Abd: Soft, nontender, BS present Ext: ROM wnl, mild pedal edema Neuro: No focal deficit - Assessment and Plan (1) Atrial fibrillation Current Visit: Yes Status: Chronic Assessment and Plan: Continue home metoprolol for rate control. No AC because of recent (2 month ago) fall which caused intracranial bleeding. HR around 79. (2) COPD exacerbation Current Visit: Yes Status: Acute Assessment and Plan: Patient has dry cough, wheezing, improved after steroid and nebulizer treatment. Consider COPD exacerbation. - Respiratory viral panel negative - Continue antibiotics, steroids, and nebulizer treatment - Continue supportive and symptomatic treatment. (3) Acute on chronic systolic heart failure Current Visit: Yes Status: Acute Assessment and Plan: Patient presented with shortness of breath. With elevated BNP. Chest x-ray shows pulmonary edema. History of systolic CHF with LVEF 30% on AICD. - Place patient on fluid restriction - Strict I and O, currently fluid balance - 2830 ml - Lasix IV 40 mg daily - We will continue home beta alicia and EMILI inhibitor upon discharge (4) Acute respiratory failure with hypoxia Current Visit: Yes Status: Acute Assessment and Plan: Most likely due to COPD and CHF exacerbation, cont underlying disease treatment. (5) Type 2 diabetes mellitus Current Visit: Yes Status: Acute Assessment and Plan: Continue basal, and sliding scale insulin. D/C pradial insulin as glu down after taper down steroid. Adjust dose per glucose level (6) HTN (hypertension) Current Visit: No Status: Chronic Assessment and Plan: BP is not high. Will continue home medications (7) CKD (chronic kidney disease) Current Visit: No Status: Chronic Assessment and Plan: Cr level is generally at baseline. Avoid the nephrotoxic medications. (8) Elevated troponin level Current Visit: Yes Status: Chronic Assessment and Plan: Mild elevated troponin. Patient denies chest pain. EKG unremarkable. Patient has CHF and CKD. Possibly demand ischemia. Continue cardiac monitoring. (9) NSVT (nonsustained ventricular tachycardia) Current Visit: Yes Status: Acute Assessment and Plan: Cardiology consult appreciate, no specific treatment, cont current BB. DVT Prophylaxis: EPCDs, no AC b/o recent hx of subdural hematoma - Time Spent with Patient Total time spent is greater than 50% in coordination of care (as documented) at patient's floor/unit and/or counseling patient: 30 min 25 - 35 minutes Plan of Care Discussed with: patient Internal Medicine: Result - Labs CBC & Chem 7: 08/21/18 04:15 08/21/18 04:15 Labs: Short CBC 08/21/18 Range/Units 04:15 WBC 9.8 (4.3-11.1) K/mcL Hgb 11.1 L (12.9-16.9) g/dL Hct 34.2 L (37.5-50.1) % Plt Count 184 (140-400) K/mcL Neutrophils # 7.1 (1.6-8.9) K/mcL BMP 08/21/18 04:15 Sodium 141 Potassium 4.1 Chloride 105 Carbon Dioxide 30 H BUN 51 H Creatinine 1.73 H Glucose 65 L Calcium 8.7 - ABG Interpretation ABG results: PT/INR, D-dimer PT 11.9 Seconds (9.4-12.1) 08/17/18 08:17 - Impressions Impressions Echocardiogram 08/19/18 13:17 Impressions: Technically challenging due to clinical status. LVEF 30%. LV systolic dysfunction appears global. Indeterminate diastolic function. There is no LV thrombus. Definity echo contrast was used. Mildly dilated left ventricle. RV structure and function not well evaluated. Moderate bi-atrial enlargement. Mild-moderate mitral regurgitation. Mild tricuspid regurgitation. Mild pulmonary hypertension. Mild pulmonic regurgitation. The IVC is dilated. Left Ventricular Wall Motion: Rest Echo Findings The apex, apical inferior, mid inferior, basal inferior, apical anterior, mid anterior, basal anterior, apical septal, mid inferior septal, basal inferior septal, apical lateral, mid anterior lateral, basal anterior lateral, mid anterior septal, mid inferior lateral, basal anterior septal and basal inferior lateral yanez were hypokinetic. Findings: Study Quality * Technically challenging due to clinical status. ECG Findings * Atrial fibrillation. Left Ventricle * LVEF 30%. * Indeterminate diastolic function. * There is no LV thrombus. * Definity echo contrast was used. * Mildly dilated left ventricle. Right Ventricle * RV structure and function not well evaluated. Left Atrium * Moderately dilated left atrium. Right Atrium * Moderately dilated right atrium. Aortic Valve * No aortic stenosis. * No aortic regurgitation. * Aortic valve not well visualized. Mitral Valve * Normal mitral valve structure. * No mitral stenosis. * Mild-moderate mitral regurgitation. Tricuspid Valve * Tricuspid valve not well visualized. * Mild tricuspid regurgitation. * Estimated RA pressure is 20 mmHg. * Estimated RVSP is 46 mmHg. * Mild pulmonary hypertension. Pulmonic Valve * Pulmonic valve is not well visualized. * No pulmonic stenosis. * Mild pulmonic regurgitation. Aorta * Normally sized aortic root. Pericardium * There is no pericardial effusion present. Pulmonary Artery * Pulmonary artery not well visualized. IVC * The IVC is dilated. * < 50% respiratory change. Interatrial Septum * No evidence of PFO by color Doppler. Device lead * A device lead was visualized in the right atrium and right ventricle. - VTE Reasons for not Prescribing Prophylaxis: Treatment not Indicated - Low risk for VTE Deep Vein Thrombosis/Pulmonary Embolism Present on Admission: No Consult Discharge Plan - Plan Referrals: Fabrizio Campbell MD [Primary Care Provider] - (1) Atrial fibrillation Qualifiers: Atrial fibrillation type: chronic Qualified Code(s): I48.2 - Chronic atrial fibrillation (5) Type 2 diabetes mellitus Qualifiers: Diabetes mellitus custodial insulin use: with custodial use Diabetes mellitus complication status: without complication Qualified Code(s): E11.9 - Type 2 diabetes mellitus without complications; Z79.4 - manager long term care (current) use of insulin (6) HTN (hypertension) Qualifiers: Hypertension type: essential hypertension Qualified Code(s): I10 - Essential (primary) hypertension (7) CKD (chronic kidney disease) Qualifiers: Chronic kidney disease stage: stage 3 (moderate) Qualified Code(s): N18.3 - Chronic kidney disease, stage 3 (moderate)
[2018-08-21] MEDS: Finasteride 5 MG TABLET PO SCH (20:29)
[2018-08-21] MEDS: Budesonide Neb 0.5 MG/2 ML IH SCH (22:41)
[2018-08-22] MEDS: Ipratropium/Albuterol Neb 3 ML IH SCH ×2 (03:54→10:09)
[2018-08-22 05:04] LABS: Eosinophils % 0.4 %; Hematocrit 35.6 % (37.5-50.1); Hemoglobin 11.5 g/dL (12.9-16.9); Immature Granulocytes % 0.2 % (0-4); Lymphocytes # 2.2 K/mcL (0.6-4.6); Lymphocytes % 26.5 %; Mean Corpuscular HGB Conc 32.3 g/dL (31.6-35.5); Mean Corpuscular Volume 99.2 fL (83.0-100.0); Mean Platelet Volume 9.3 fL (9.4-12.4); Monocytes # 0.5 K/mcL (0.0-1.3); Monocytes % 6.3 %; Neutrophils # 5.6 K/mcL (1.6-8.9); Platelet Count 174 K/mcL (140-400); Red Blood Count 3.59 M/mcL (4.19-5.50); Segmented Neutrophils % 66.6 %
[2018-08-22 05:23] LABS: Calcium 8.7 mg/dL (8.6-10.3); Potassium 3.6 mEq/L (3.5-5.1)
[2018-08-22 07:50] VITALS: BP 113/72
[2018-08-22] MEDS: Insulin LISPRO 300 UNITS/3 ML VIAL SQ SCH ×2 (08:47→12:26)
[2018-08-22] MEDS ORDERED: Insulin NPH 100 UNIT/ML (x5UNIT) SQ SCH ×2 (09:00→21:00)
--- NOTE | 2018-08-22 09:42 | Cardiology Progress Note ---
Date of Encounter: 08/22/18 Time of Encounter: 09:00 Assessment and Plan (1) Atrial fibrillation Current Visit: Yes Status: Chronic Known A-Fib, currently V-paced. Occasional A-Fib with aberrancy noted on tele. Continue BB. Previously anticoagulated on Coumadin, sustained fall and subsequent subdural hematoma 07/2018. AC stopped. Qualifiers: Atrial fibrillation type: chronic Qualified Code(s): I48.2 - Chronic atrial fibrillation (2) Acute on chronic systolic heart failure Current Visit: Yes Status: Acute Presented with worsening dyspnea, cough, wheezing x 4 days. Inpt at [facility] 07/2018 for subdural hematoma. Lasix was decreased at that time d/t [facility]. BNP 588. CXR cardiomegaly with pulmonary edema and bilateral pleural effusions, left side greater than right, with associated bibasilar atelectasis. Left pleural effusion appears larger since the 07/22/2018 exam. TTE 06/28/17: LVEF 30%. Severe global LV systolic dysfunction. Mildly dilated RV with mildly reduced function. Mild-moderate MR. Has diuresed well over the weekend, reports dyspnea/edema now at baseline. Cumulative I&O: -3700 mL, per documentation down nearly 20 kg-- ? accuracy. If left pleural effusion persists despite IV diuresis, recommend considering thoracentesis. Continue BB, ARB, and transition to po lasix upon discharge. CHF education discussed including Na/fluid restricted diet. Cardiology will sign-off, will coordinate outpatient follow-up. (3) CAD (coronary artery disease) Current Visit: Yes Status: Acute Known hx of CAD. S/P CABG 1998. [facility] 2012 reportedly no intervention. Continue Statin, BB. Not on ASA d/t recent subdural hematoma. Qualifiers: Coronary Disease-Associated Artery/Lesion type: unspecified vessel or lesion type [place] vs. transplanted heart: [place] heart Associated angina: with unstable angina Qualified Code(s): I25.110 - Atherosclerotic heart disease of [place] coronary artery with unstable angina pectoris (4) NSVT (nonsustained ventricular tachycardia) Current Visit: Yes Status: Acute Consulted for NSVT. Occasional episodes on tele, longest 7 beats. K, Mag, TSH WNL. Continue BB. Known ICMP EF 30% with ICD in place. NSVT noted on prior device checks, not a new finding. Discussion w patient/family: The assessment and plan as outlined above was discussed with the patient and/or family members who expressed understanding and agreement. All questions were answered. Thank you for involving us in the care of your patient. Please call with any questions. The patient will be discussed and reviewed with Dr. De Paz, changes to be made accordingly. Subjective Principal diagnosis: acute on chronic sCHF Interval history: Seen and examined. No complaints upon exam today. Reports will be discharged to home later today. Dyspnea, lower extremity edema now at baseline. No chest pain/discomfort described. Objective Vital Signs, Last 4 Hours Temp Pulse Resp BP Pulse Ox 08/22/18 07:46 97.8 F 99 18 113/72 90 General: Conversant, No Apparent Distress HEENT: Atraumatic, Normocephaly, Mucus Membranes Moist Cardiac: Normal S1 and S2, Other (irregularly irregular) Lungs: Normal Breath Sounds Neuro: Alert and responsive Abdomen: Soft Skin: No rashes noted on visualized skin Musculoskeletal: No Chest Wall Tenderness Extremities: Other (mild, non-pitting LE edema) Results 08/22/18 04:26 08/22/18 04:26 Lab Results 08/22/18 08/22/18 04:26 04:26 WBC 8.4 Hgb 11.5 L Hct 35.6 L Plt Count 174 Sodium 141 Potassium 3.6 Chloride 107 Carbon Dioxide 29 BUN 43 H Creatinine 1.58 H Glucose 58 L Calcium 8.7 Active Medications Albuterol/Ipratropium (Duoneb) 3 ml IH QIDR DANIEL Stop: 02/16/19 17:01 Last Admin: 08/22/18 03:54 Dose: 3 ml Albuterol/Ipratropium (Duoneb) 3 ml IH [id number] PRN PRN Reason: Shortness Of Breath/Wheezing Stop: 02/16/19 13:23 Azithromycin (Zithromax) 500 mg PO DAILY DANIEL Stop: 02/18/19 09:01 Last Admin: 08/21/18 08:04 Dose: 500 mg Budesonide (Pulmicort Neb) 0.5 mg IH HS DANIEL Stop: 02/16/19 23:01 Last Admin: 08/21/18 22:41 Dose: 0.5 mg Dextrose/Water (Dextrose 50% (Syg)) 25 ml IVP AD PRN PRN Reason: Hypoglycemia Stop: 02/16/19 13:27 Docusate Sodium (Colace) 100 mg PO BID [facility]; Protocol Stop: 02/16/19 23:01 Last Admin: 08/21/18 20:29 Dose: 100 mg Finasteride (Proscar) 5 mg PO HS [facility]; Protocol Stop: 02/16/19 23:01 Last Admin: 08/21/18 20:29 Dose: 5 mg Furosemide (Lasix) 40 mg IVP DAILY [facility] Stop: 02/17/19 09:01 Last Admin: 08/21/18 08:04 Dose: 40 mg Glucagon (Glucagen) 1 mg IM ONCE PRN PRN Reason: Hypoglycemia Stop: 02/16/19 13:27 Glucose (Gluctose) 15 gm PO ONCE PRN PRN Reason: Hypoglycemia Stop: 02/16/19 13:27 Glucose (Gluctose) 30 gm PO ONCE PRN PRN Reason: Hypoglycemia Stop: 02/16/19 13:27 Dextrose (Dextrose 5%) 1,000 mls @ 100 mls/hr IVC .Q10H PRN PRN Reason: HYPOGLYCEMIA Stop: 02/16/19 13:27 Insulin Human Lispro (Humalog) 0 units SQ [facility]; Protocol Stop: 02/17/19 21:01 Last Admin: 08/21/18 20:34 Dose: 4 units Insulin Human Lispro (Humalog) 0 units SQ TIDAC [facility]; Protocol Stop: 02/16/19 16:31 Last Admin: 08/22/18 08:47 Dose: Not Given Insulin Human NPH (Humulin N) 15 unit SQ DAILY [facility] Stop: 02/21/19 09:01 Insulin Human NPH (Humulin N) 20 unit SQ [facility] Stop: 02/21/19 21:01 Levothyroxine Sodium (Synthroid) 150 mcg PO 30 [facility] Stop: 02/17/19 06:31 Last Admin: 08/22/18 05:30 Dose: 150 mcg Losartan Potassium (Cozaar) 12.5 mg PO DAILY [facility]; Protocol Stop: 02/21/19 09:01 Metoprolol Succinate (Toprol Xl) 100 mg PO DAILY [facility] Stop: 02/17/19 09:01 Last Admin: 08/21/18 08:03 Dose: 100 mg Naloxone HCl (Narcan) 0.4 mg IVP Q2MIN PRN PRN Reason: SEE COMMENTS Stop: 02/16/19 13:11 Prednisone (Prednisone) 20 mg PO DAILY DANIEL Stop: 02/20/19 09:01 Last Admin: 08/21/18 08:03 Dose: 20 mg Simvastatin (Zocor) 20 mg PO HS DANIEL; Protocol Stop: 02/16/19 23:01 Last Admin: 08/21/18 20:29 Dose: 20 mg - Imaging and Cardiology Echo: report reviewed Other Results: 12 hour tele: avg HR=90 paced. - EKG Interpretation EKG results cardiology: personally reviewed - VTE Reasons for not Prescribing Prophylaxis: Treatment not Indicated - Low risk for VTE Deep Vein Thrombosis/Pulmonary Embolism Present on Admission: No Consult Discharge Plan - Plan Referrals: Fabrizio Campbell MD [Primary Care Provider] -
[2018-08-22] MEDS: Azithromycin 250 MG TABLET PO SCH (10:32)
[2018-08-22] MEDS: predniSONE 20 MG TABLET PO SCH (10:32)
[2018-08-22] MEDS: Metoprolol XL (24 HR) Succ 50 MG TAB.ER.24H PO SCH (10:32)
[2018-08-22] MEDS: Furosemide 40 MG/4 ML VIAL IVP SCH (10:33)
--- NOTE | 2018-08-22 11:11 | Discharge Summary ---
- NOTES TO OUTPATIENT PROVIDER Notes to Outpatient Provider: 1. Home medication lisinopril has been changed to losartan as pt c/o cough. Increase lasix back to 40mg po bid, please closely follow up with renal function and potassium level. Date of Encounter: 08/22/18 Time of Encounter: 10:00 - Discharge Diagnosis (1) Atrial fibrillation Priority: Secondary Status: Chronic Qualifiers: Atrial fibrillation type: chronic Qualified Code(s): I48.2 - Chronic atrial fibrillation (2) COPD exacerbation Priority: Primary Status: Acute (3) Acute on chronic systolic heart failure Priority: Primary Status: Acute (4) Acute respiratory failure with hypoxia Priority: Primary Status: Acute (5) Type 2 diabetes mellitus Priority: Secondary Status: Acute Qualifiers: Diabetes mellitus intermediate insulin use: with long term care administrator use Diabetes mellitus complication status: without complication Qualified Code(s): E11.9 - Type 2 diabetes mellitus without complications; 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 Sanchez is a 88 year old male with history of systolic CHF with LVEF of 30% present to ER for worsening shortness of breath. Patient was treated with Lasix, fluid restriction for CHF exacerbation. After treatment, patient's symptoms has improved back to baseline. Patient has a chronic cough, home medication lisinopril has been changed to losartan. CT chest been done, unremarkable. Cardiology consult for non sustained VT appreciated, no specific treatment. Regarding left sided pleural effusion, I have discussed with patient and the family regarding risk and benefit, we will continue diuretics at this point and continue follow-up as outpatient, will hold thoracentesis as patient shortness of breath gets back to baseline and consider it is systolic CHF caused pleural effusion. Patient's and the family agrees with the plan. Will resume Lasix 40 mg twice a day upon discharge, closely monitor renal function and a potassium level. We will continue low-dose by mouth potassium supplement at 10 mEq per day. I have seen and examined patient today, patient is awake alert oriented 3. In no acute distress. No wheezing. Vitals are stable. Will see patient home. Patient has been treated with po steroids and antibiotics for 5 days, will DC steroid and antibiotics. Patient will continue follow-up with PCP as outpatient. - Time Spent with Patient Total time spent providing and/or coordinating discharge services: 25 minute Less than 30 minutes - Discharge Medications Prescriptions: Furosemide [Lasix] 40 mg PO BID 30 Days #60 tablet Losartan [Cozaar] 12.5 mg PO DAILY 60 Days #30 tablet Home Medications: Cholecalciferol (D-3) [Vitamin D] 2,000 unit PO DAILY 01/13/17 [History] Docusate [Colace] 100 mg PO BID 01/13/17 [History] Finasteride [Proscar] 5 mg PO HS 01/13/17 [History] Insulin NPH Human Isophane [Novolin N] 20 unit SQ HS 01/13/17 [History] Levothyroxine [Synthroid] 150 mcg PO QAM 01/13/17 [History] Simvastatin [Zocor] 20 mg PO HS 01/13/17 [History] Insulin NPH Human Isophane [Novolin N] 15 unit SQ QAM 06/25/17 [History] Potassium Chloride 10 meq PO DAILY #30 tab.er.prt 06/29/17 [Rx] Budesonide Neb [Pulmicort Neb] 0.5 mg IH HS 08/17/18 [History] Insulin Regular, Human [Novolin R] 15 - 20 unit SQ QPM 08/17/18 [History] Insulin Regular, Human [Novolin R] 20 unit SQ QAM 08/17/18 [History] Ipratropium/Albuterol Sulfate [Iprat-Albut 0.5-3(2.5) mg/3 ml] 1 vial IH TID 08/17/18 [History] Metoprolol Succinate [Toprol Xl] 100 mg PO DAILY 08/17/18 [History] Furosemide [Lasix] 40 mg PO BID 30 Days #60 tablet 08/22/18 [Rx] Losartan [Cozaar] 12.5 mg PO DAILY 60 Days #30 tablet 08/22/18 [Rx] Allergies/Adverse Reactions: Allergy/AdvReac Type Severity Reaction Status Date / Time No Known Allergies Allergy Verified 07/22/18 10:00 Date of admission: 08/17/18 13:10 Primary care physician: Fabrizio Campbell MD Consults: 08/19/18 13:02 Consult to Physical Therapy [CONS] Routine Comment: Evaluate, develop and implement POC Reason for Consult: weakness Does patient have active BEDREST order?: No Is patient medically & hemodynamically stable?: Yes Patient assessed for mobility or mobilized this visit?: Yes 08/19/18 13:03 Consult to Occupational Therapy [CONS] Routine Comment: Evaluate, develop and implement POC Reason for Consult: weakness Does patient have active BEDREST order?: No Is patient medically & hemodynamically stable?: Yes Patient assessed for mobility or mobilized this visit?: No 08/19/18 13:16 Consult to Cardiology [CONS] Routine Comment: Consulting Provider: Cardiology Ophelia Reason for Consult: non sustained VT x 7 beats on tele monitoring Call Completed: No Discharging clinician: Ethel Hyde Anticipated date of discharge: 08/22/18 - Constitutional Vitals: Temp Pulse Resp BP Pulse Ox 97.8 F 99 16 113/72 96 08/22/18 07:46 08/22/18 07:46 08/22/18 10:09 08/22/18 07:46 08/22/18 10:09 General appearance: Present: A&O X 3, no acute distress, answers questions appropriately Exam: Pt is AAO x 3, in NAD HEENT: NC/AT, PERRL Neck: Supple, no JVD, no LAD Lungs: CTA bilaterally, no wheezing or rhonchi Heart: S1S2, RRR Abd: Soft, nontender, BS present Ext: ROM wnl, mild pedal edema Neuro: No focal deficit - Patient Status Disposition: Home Health Service Condition: Good Functional capacity at discharge: uses cane/walker Overall status at discharge: patient is back to baseline - Discharge Instructions Follow Up With: Cyndee Manuel CNP [Partnered Physician] - (OFFICE WILL CALL PATIENT AT HOME WITH FOLLOW UP APPOINTMENT) Fabrizio Campbell MD [Primary Care Provider] - 08/26/18 1:00 pm Forms: ED Satisfaction Letter - Diet and Activity Activity: increase activity as tolerated Diet: diabetic diet, low fat, low cholesterol, low salt diet - VTE Reasons for not Prescribing Prophylaxis: Treatment not Indicated - Low risk for VTE Deep Vein Thrombosis/Pulmonary Embolism Present on Admission: No
--- NOTE | 2018-08-22 11:36 | Physician Discharge Referral ---
Home Health/Hosp Referral Info Transfer to: Home Health Provider in Charge Post Discharge: PCP - Diagnosis (1) Atrial fibrillation Priority: Secondary Status: Chronic (2) COPD exacerbation Status: Acute (3) Acute on chronic systolic heart failure Status: Acute (4) Acute respiratory failure with hypoxia Status: Acute (5) Type 2 diabetes mellitus Status: Acute (6) HTN (hypertension) Status: Chronic (7) CKD (chronic kidney disease) Status: Chronic (8) Elevated troponin level Status: Chronic (9) NSVT (nonsustained ventricular tachycardia) Status: Acute - Respiratory Orders Smoking Cessation: Smoking cessation has been advised. For more information, call the [place] Tobacco Quit Line at 7-038-KAQA-NOW. - Diet/Nutrition Diet/Nutrition Orders: No Added Salt (WALE), Cardiac - Services Needed Following services are medically necessary services: Nursing - Transfer Medications Prescriptions: Furosemide [Lasix] 40 mg PO BID 30 Days #60 tablet Losartan [Cozaar] 12.5 mg PO DAILY 60 Days #30 tablet Home Medications: Cholecalciferol (D-3) [Vitamin D] 2,000 unit PO DAILY 01/13/17 [History] Docusate [Colace] 100 mg PO BID 01/13/17 [History] Finasteride [Proscar] 5 mg PO HS 01/13/17 [History] Insulin NPH Human Isophane [Novolin N] 20 unit SQ HS 01/13/17 [History] Levothyroxine [Synthroid] 150 mcg PO QAM 01/13/17 [History] Simvastatin [Zocor] 20 mg PO HS 01/13/17 [History] Insulin NPH Human Isophane [Novolin N] 15 unit SQ QAM 06/25/17 [History] Potassium Chloride 10 meq PO DAILY #30 tab.er.prt 06/29/17 [Rx] Budesonide Neb [Pulmicort Neb] 0.5 mg IH HS 08/17/18 [History] Insulin Regular, Human [Novolin R] 15 - 20 unit SQ QPM 08/17/18 [History] Insulin Regular, Human [Novolin R] 20 unit SQ QAM 08/17/18 [History] Ipratropium/Albuterol Sulfate [Iprat-Albut 0.5-3(2.5) mg/3 ml] 1 vial IH TID 08/17/18 [History] Metoprolol Succinate [Toprol Xl] 100 mg PO DAILY 08/17/18 [History] Furosemide [Lasix] 40 mg PO BID 30 Days #60 tablet 08/22/18 [Rx] Losartan [Cozaar] 12.5 mg PO DAILY 60 Days #30 tablet 08/22/18 [Rx] Allergies/Adverse Reactions: Allergy/AdvReac Type Severity Reaction Status Date / Time No Known Allergies Allergy Verified 07/22/18 10:00 Certification: Further, I certify that my clinical findings support that this patient is homebound (i.e. absences from home require considerable and taxing effort and are for medical reasons or anabaptism services or infrequently or short duration when for other reasons) because: Homebound Reason: Patient requires assistance of a person or device to safely leave home Attestation: My signature below is to certify that this patient is under my care and that I, or nurse practitioner, or a physician's medical receptionist medical assistant working with me, has a [id number] encounter with this patient.
== END 2018-08-22 13:06 | disposition home health service (06) | DRG 190 ==
LOC: EMEROOARM 07:54 → 3BNU 07:54 → 2NNU 10:30 → SUATTDRO 13:10
PROVIDERS: ADMIT Internal Medicine; ATTEND Internal Medicine

== ENCOUNTER 2019-07-26 10:48 | Observation (INO) ==
[2019-07-26] MEDS ORDERED: Ipratropium/Albuterol Neb 3 ML IH ONE (11:01)
[2019-07-26 11:45] LABS: Basophils % 0.2 %; Eosinophils % 0.3 %; Hematocrit 39.2 % (37.5-50.1); Hemoglobin 12.7 g/dL (12.9-16.9); Immature Granulocytes % 0.2 % (0-4); Lymphocytes # 1.3 K/mcL (0.6-4.6); Lymphocytes % 19.5 %; Mean Corpuscular HGB Conc 32.4 g/dL (31.6-35.5); Mean Corpuscular Hemoglobin 32.5 pg (28.0-33.3); Mean Corpuscular Volume 100.3 fL (83.0-100.0); Monocytes # 0.4 K/mcL (0.0-1.3); Monocytes % 5.6 %; Neutrophils # 4.9 K/mcL (1.6-8.9); Platelet Count 160 K/mcL (140-400); Red Blood Count 3.91 M/mcL (4.19-5.50); Red Cell Distribution Width 12.9 % (11.5-14.5); Segmented Neutrophils % 74.2 %; White Blood Count 6.7 K/mcL (4.3-11.1)
[2019-07-26 11:47] LABS: Calcium 9.2 mg/dL (8.6-10.3); Potassium 4.3 mEq/L (3.5-5.1)
[2019-07-26 11:50] LABS: Troponin I 0.09 ng/mL (< 0.04)
[2019-07-26] MEDS ORDERED: methylPREDNISolone 125 MG/2 ML VIAL IVP ONE (12:25)
[2019-07-26] MEDS ORDERED: Ondansetron ODT 4 MG TAB.RAPDIS SL PRN (13:46)
[2019-07-26] MEDS ORDERED: Naloxone 0.4 MG/ML INJ IVP PRN (13:46)
[2019-07-26] MEDS ORDERED: Ipratropium/Albuterol Neb 3 ML IH PRN (13:54)
[2019-07-26] MEDS ORDERED: D5% in Water 1,000 ML IVC PRN (14:11)
[2019-07-26] MEDS ORDERED: Dextrose Gel 15 GM/37.5 ML TUBE PO PRN ×2 (14:11)
[2019-07-26] MEDS ORDERED: *HR* Dextrose 50 % in Water (Syg) 50 ML SYRINGE IVP PRN (14:11)
[2019-07-26] MEDS: Ipratropium/Albuterol Neb 3 ML IH SCH ×3 (15:06→23:47)
[2019-07-26] MEDS ORDERED: Insulin LISPRO 300 UNITS/3 ML VIAL SQ SCH ×2 (16:30→17:00)
[2019-07-26] MEDS ORDERED: Perflutren Lipid Microsphere 1.3 ML in 0.9 % Sodium Chloride 8.7 ML IVP ONE (17:02)
[2019-07-26] MEDS: Furosemide 40 MG/4 ML VIAL IVP SCH (17:26)
[2019-07-26] MEDS: Insulin LISPRO 300 UNITS/3 ML VIAL SQ SCH (20:58)
[2019-07-26] MEDS: Insulin DETEMIR 100 UNIT/ML X5UNITS SQ SCH (22:32)
[2019-07-27] MEDS ORDERED: Insulin Human Regular 10 UNIT in 0.9 % Sodium Chloride 10 ML IV ONE (01:58)
[2019-07-27] MEDS: Ipratropium/Albuterol Neb 3 ML IH SCH ×5 (03:52→19:59)
[2019-07-27 05:53] LABS: Hematocrit 34.8 % (37.5-50.1); Hemoglobin 11.6 g/dL (12.9-16.9); Immature Granulocytes % 0.2 % (0-4); Lymphocytes # 1.2 K/mcL (0.6-4.6); Lymphocytes % 13.3 %; Mean Corpuscular HGB Conc 33.3 g/dL (31.6-35.5); Mean Corpuscular Hemoglobin 32.1 pg (28.0-33.3); Mean Corpuscular Volume 96.4 fL (83.0-100.0); Mean Platelet Volume 10.2 fL (9.4-12.4); Monocytes # 0.4 K/mcL (0.0-1.3); Monocytes % 4.5 %; Neutrophils # 7.2 K/mcL (1.6-8.9); Platelet Count 155 K/mcL (140-400); Red Blood Count 3.61 M/mcL (4.19-5.50); Red Cell Distribution Width 12.8 % (11.5-14.5); White Blood Count 8.7 K/mcL (4.3-11.1)
[2019-07-27 06:22] LABS: Calcium 8.8 mg/dL (8.6-10.3); Potassium 4.1 mEq/L (3.5-5.1)
[2019-07-27] MEDS: Insulin LISPRO 300 UNITS/3 ML VIAL SQ SCH ×7 (08:57→21:20)
[2019-07-27] MEDS: Furosemide 40 MG/4 ML VIAL IVP SCH ×2 (09:01→17:32)
[2019-07-27] MEDS: Metoprolol XL (24 HR) Succ 50 MG TAB.ER.24H PO SCH (09:05)
[2019-07-27] MEDS: predniSONE 20 MG TABLET PO SCH (09:05)
[2019-07-27] MEDS: Finasteride 5 MG TABLET PO SCH (09:05)
[2019-07-27] MEDS: Cholecalciferol (D-3) 1,000 UNIT (25MCG) TABLET PO SCH (09:05)
[2019-07-27] MEDS ORDERED: Albuterol 2.5 MG/3 ML NEBULIZER IH PRN (09:16)
[2019-07-27 09:28] LABS: Estimated Average Glucose 183 mg/dl
[2019-07-27] MEDS: Insulin DETEMIR 100 UNIT/ML X5UNITS SQ SCH (21:21)
[2019-07-28] MEDS: Ipratropium/Albuterol Neb 3 ML IH SCH ×4 (00:11→11:57)
[2019-07-28 05:53] LABS: Calcium 8.5 mg/dL (8.6-10.3); Potassium 4.5 mEq/L (3.5-5.1)
[2019-07-28 06:58] VITALS: BP 127/75
[2019-07-28] MEDS ORDERED: Furosemide 40 MG TABLET PO SCH (08:00)
[2019-07-28] MEDS: Finasteride 5 MG TABLET PO SCH (09:50)
[2019-07-28] MEDS: predniSONE 20 MG TABLET PO SCH (09:50)
[2019-07-28] MEDS: Cholecalciferol (D-3) 1,000 UNIT (25MCG) TABLET PO SCH (09:50)
[2019-07-28] MEDS: Metoprolol XL (24 HR) Succ 50 MG TAB.ER.24H PO SCH (09:50)
[2019-07-28] MEDS: Insulin LISPRO 300 UNITS/3 ML VIAL SQ SCH ×2 (09:51)
== END 2019-07-28 12:18 | disposition home or self-care (01) ==
LOC: 2ANU 10:48 → EMEROOARM 10:48 → SUATTDRO 15:13 → 2ANU 15:57
PROVIDERS: ADMIT Internal Medicine; ATTEND Internal Medicine

== ENCOUNTER 2019-08-12 09:44 | Inpatient (IN) ==
[2019-08-12 10:17] LABS: Basophils % 0.2 %; Hematocrit 37.4 % (37.5-50.1); Immature Granulocytes % 0.2 % (0-4); Lymphocytes # 1.4 K/mcL (0.6-4.6); Lymphocytes % 24.6 %; Mean Corpuscular HGB Conc 32.1 g/dL (31.6-35.5); Mean Corpuscular Volume 99.7 fL (83.0-100.0); Mean Platelet Volume 10.3 fL (9.4-12.4); Monocytes # 0.1 K/mcL (0.0-1.3); Monocytes % 2.4 %; Neutrophils # 4.2 K/mcL (1.6-8.9); Platelet Count 136 K/mcL (140-400); Red Blood Count 3.75 M/mcL (4.19-5.50); Red Cell Distribution Width 12.8 % (11.5-14.5); Segmented Neutrophils % 72.6 %; White Blood Count 5.8 K/mcL (4.3-11.1)
[2019-08-12 10:19] LABS: INR 1.1; Prothrombin Time 12.5 Seconds (9.4-12.1)
[2019-08-12 10:40] LABS: Albumin 3.9 g/dL (3.5-5.7); Albumin/Globulin Ratio 1.6 (1.1-2.2); Bilirubin,Direct 0.4 mg/dL (0.0-0.2); Bilirubin,Indirect 0.6 mg/dL (0.0-1.0); Globulin 2.4 g/dL (2.4-3.5); Magnesium 2.1 mg/dL (1.6-2.6); Phosphorous 3.4 mg/dL (2.7-4.5); Potassium 5.1 mEq/L (3.5-5.1); Total Protein 6.3 g/dL (6.4-8.9); Troponin I 0.1 ng/mL (< 0.04)
[2019-08-12] MEDS ORDERED: Aspirin 325 MG TABLET PO ONE (11:06)
[2019-08-12] MEDS ORDERED: Furosemide 40 MG/4 ML VIAL IVP ONE (11:12)
[2019-08-12] MEDS ORDERED: Insulin Regular, Human 100 UNIT/ML SQ ONE (11:46)
[2019-08-12 12:14] LABS: Bilirubin,Urine Negative (Negative); Blood,Urine Negative (Negative); Clarity,Urine Clear (Clear); Color,Urine Yellow (Yellow); Glucose,Urine (UA) >=1000 mg/dL (Normal); Ketones,Urine Negative (Negative); Leukocyte Esterase,Urine Negative (Negative); Nitrite,Urine Negative (Negative); Protein,Urine Trace mg/dL (Neg-Trace); Specific Gravity,Urine 1.017 (1.010-1.025); Urobilinogen,Urine Normal (Normal)
[2019-08-12] MEDS ORDERED: Naloxone 0.4 MG/ML INJ IVP PRN (15:01)
[2019-08-12] MEDS ORDERED: Ipratropium/Albuterol Neb 3 ML IH PRN (15:52)
[2019-08-12] MEDS: Doxycycline 100 MG CAPSULE PO SCH ×2 (16:33→20:39)
[2019-08-12] MEDS: Metoprolol XL (24 HR) Succ 50 MG TAB.ER.24H PO SCH (16:33)
[2019-08-12] MEDS: predniSONE 20 MG TABLET PO SCH (16:34)
[2019-08-12] MEDS ORDERED: Insulin DETEMIR 100 UNIT/ML X5UNITS SQ ONE (16:47)
[2019-08-12] MEDS ORDERED: Albumin 25% 25gram/100mL 25 GM/100 ML IV.SOLN IVPB ONE (17:00)
[2019-08-12] MEDS: Furosemide 40 MG/4 ML VIAL IVP SCH (17:48)
[2019-08-12] MEDS: Ipratropium/Albuterol Neb 3 ML IH SCH ×2 (17:55→22:21)
[2019-08-12] MEDS ORDERED: Furosemide 40 MG in 0.9 % Sodium Chloride 50 ML IV SCH (18:00)
[2019-08-12 19:01] LABS: Adenovirus Not Detected (Not Detect); Bordetella Pertussis Not Detected (Not Detect); Chlamydophila pneumoniae Not Detected (Not Detect); Coronavirus 229E Not Detected (Not Detect); Coronavirus HKU1 Not Detected (Not Detect); Coronavirus NL63 Not Detected (Not Detect); Coronavirus OC43 Not Detected (Not Detect); Human Metapneumovirus Not Detected (Not Detect); Human Rhinovirus/Enterovirus Not Detected (Not Detect); Influenza A Subtype 2009 H1 Not Detected (Not Detect); Influenza A Untypeable Not Detected (Not Detect); Influenza B Not Detected (Not Detect); Mycoplasma pneumoniae Not Detected (Not Detect); Parainfluenza Virus 1 Not Detected (Not Detect); Parainfluenza Virus 2 Not Detected (Not Detect); Parainfluenza Virus 3 Not Detected (Not Detect); Parainfluenza Virus 4 Not Detected (Not Detect); Respiratory Syncytial Virus DETECTED (Not Detect)
[2019-08-12] MEDS: Benzonatate 100 MG CAPSULE PO PRN (20:40)
[2019-08-12] MEDS: Insulin DETEMIR 100 UNIT/ML X5UNITS SQ SCH (21:38)
[2019-08-12] MEDS ORDERED: *HR* Dextrose 50 % in Water (Syg) 50 ML SYRINGE IVP PRN (21:52)
[2019-08-12] MEDS ORDERED: Dextrose Gel 15 GM/37.5 ML TUBE PO PRN ×2 (21:52)
[2019-08-12] MEDS ORDERED: D5% in Water 1,000 ML IVC PRN (21:52)
[2019-08-12] MEDS: Budesonide Neb 0.5 MG/2 ML IH SCH (22:21)
[2019-08-12] MEDS: Insulin LISPRO 300 UNITS/3 ML VIAL SQ SCH (22:49)
[2019-08-13 04:00] LABS: BUN/Creatinine Ratio 26 (6-26); Blood Urea Nitrogen 59 mg/dL (8-23); Calcium 9.2 mg/dL (8.6-10.3); Carbon Dioxide 29 mEq/L (23-29); Chloride 94 mEq/L (98-107); Glucose 362 mg/dL (70-105); Osmolality,Calculated 305 (280-300); Potassium 4.5 mEq/L (3.5-5.1); Sodium 132 mEq/L (136-145); eGFR For African Americans 33 (> 60); eGFR For Non-African Americans 27 (> 60)
[2019-08-13] MEDS: Ipratropium/Albuterol Neb 3 ML IH SCH ×4 (04:20→22:10)
[2019-08-13] MEDS: Benzonatate 100 MG CAPSULE PO PRN ×3 (05:44→22:03)
[2019-08-13] MEDS: Furosemide 40 MG/4 ML VIAL IVP SCH ×2 (08:22→16:16)
[2019-08-13] MEDS: Insulin LISPRO 300 UNITS/3 ML VIAL SQ SCH ×4 (08:22→22:01)
[2019-08-13] MEDS: predniSONE 20 MG TABLET PO SCH (08:23)
[2019-08-13] MEDS: Doxycycline 100 MG CAPSULE PO SCH ×2 (08:23→22:00)
[2019-08-13] MEDS: Insulin DETEMIR 100 UNIT/ML X5UNITS SQ SCH ×2 (08:23→22:00)
[2019-08-13] MEDS: Finasteride 5 MG TABLET PO SCH (08:23)
[2019-08-13] MEDS: Metoprolol XL (24 HR) Succ 50 MG TAB.ER.24H PO SCH (08:23)
[2019-08-13] MEDS ORDERED: Menthol 9.1 MG LOZENGE PO PRN (11:55)
[2019-08-13 14:10] LABS: Lactate Dehydrogenase 175 Units/L (140-271); Total Protein 6.1 g/dL (6.4-8.9)
[2019-08-13 14:26] LABS: RBC,Pleural Fluid < 0.002 M/mcL
[2019-08-13 14:31] LABS: Amylase,Pleural Fluid 17 Units/L (No Ref Range); LDH,Pleural Fluid 76 Units/L (No Ref Range); Total Protein,Pleural Fluid < 3.0 g/dL
[2019-08-13 14:41] LABS: Appearance of Pleural Fl Clear (Clear)
[2019-08-13] MEDS: Budesonide Neb 0.5 MG/2 ML IH SCH (22:10)
[2019-08-14] MEDS: Ipratropium/Albuterol Neb 3 ML IH SCH ×4 (03:14→21:13)
[2019-08-14 06:44] LABS: Calcium 8.9 mg/dL (8.6-10.3); Magnesium 2.1 mg/dL (1.6-2.6); Potassium 3.9 mEq/L (3.5-5.1)
[2019-08-14] MEDS: Insulin LISPRO 300 UNITS/3 ML VIAL SQ SCH ×4 (08:42→20:04)
[2019-08-14] MEDS: Finasteride 5 MG TABLET PO SCH (08:43)
[2019-08-14] MEDS: Furosemide 40 MG/4 ML VIAL IVP SCH (08:43)
[2019-08-14] MEDS: predniSONE 20 MG TABLET PO SCH (08:43)
[2019-08-14] MEDS: Doxycycline 100 MG CAPSULE PO SCH ×2 (08:43→20:06)
[2019-08-14] MEDS: Metoprolol XL (24 HR) Succ 50 MG TAB.ER.24H PO SCH (08:43)
[2019-08-14] MEDS: Insulin DETEMIR 100 UNIT/ML X5UNITS SQ SCH ×2 (08:46→20:05)
[2019-08-14 10:29] LABS: Estimated Average Glucose 174 mg/dl
[2019-08-14] MEDS: Benzonatate 100 MG CAPSULE PO PRN (12:08)
[2019-08-14] MEDS: Furosemide 40 MG TABLET PO SCH (16:42)
[2019-08-14] MEDS: Budesonide Neb 0.5 MG/2 ML IH SCH (21:13)
[2019-08-15] MEDS: Ipratropium/Albuterol Neb 3 ML IH SCH ×2 (03:34→09:11)
[2019-08-15 05:53] LABS: Calcium 9.2 mg/dL (8.6-10.3)
[2019-08-15] MEDS: Metoprolol XL (24 HR) Succ 50 MG TAB.ER.24H PO SCH (08:32)
[2019-08-15] MEDS: Doxycycline 100 MG CAPSULE PO SCH (08:32)
[2019-08-15] MEDS: predniSONE 20 MG TABLET PO SCH (08:32)
[2019-08-15] MEDS: Furosemide 40 MG TABLET PO SCH (08:32)
[2019-08-15] MEDS: Insulin LISPRO 300 UNITS/3 ML VIAL SQ SCH (08:33)
[2019-08-15] MEDS: Finasteride 5 MG TABLET PO SCH (08:33)
[2019-08-15] MEDS: Insulin DETEMIR 100 UNIT/ML X5UNITS SQ SCH (08:39)
[2019-08-15] MEDS ORDERED: Budesonide Neb 0.5 MG/2 ML IH SCH (10:00)
[2019-08-15 11:26] VITALS: BP 118/68
== END 2019-08-15 12:02 | disposition home or self-care (01) | DRG 291 ==
LOC: EMEROOARM 09:44 → 2ANU 09:44 → SUATTDRO 12:50 → 2ANU 13:38
PROVIDERS: ADMIT Internal Medicine; ATTEND Internal Medicine

== ENCOUNTER 2019-08-22 12:59 | Observation (INO) ==
[2019-08-22] MEDS ORDERED: Furosemide 40 MG/4 ML VIAL IVP ONE (13:07)
[2019-08-22] MEDS: 0.9 % Sodium Chloride 1,000 ML IVC SCH (13:39)
[2019-08-22 13:42] LABS: Basophils % 0.1 %; Eosinophils % 0.1 %; Hematocrit 37.2 % (37.5-50.1); Hemoglobin 12.5 g/dL (12.9-16.9); Immature Granulocytes % 0.6 % (0-4); Lymphocytes # 4.8 K/mcL (0.6-4.6); Lymphocytes % 34.9 %; Mean Corpuscular HGB Conc 33.6 g/dL (31.6-35.5); Mean Corpuscular Hemoglobin 32.1 pg (28.0-33.3); Mean Corpuscular Volume 95.6 fL (83.0-100.0); Monocytes # 0.6 K/mcL (0.0-1.3); Monocytes % 4.5 %; Neutrophils # 8.1 K/mcL (1.6-8.9); Platelet Count 173 K/mcL (140-400); Red Blood Count 3.89 M/mcL (4.19-5.50); Red Cell Distribution Width 13.1 % (11.5-14.5); Segmented Neutrophils % 59.8 %; White Blood Count 13.6 K/mcL (4.3-11.1)
[2019-08-22 13:52] LABS: Troponin I 0.12 ng/mL (< 0.04)
[2019-08-22 13:53] LABS: Albumin 3.2 g/dL (3.5-5.7); Albumin/Globulin Ratio 1.4 (1.1-2.2); Bilirubin,Total 0.6 mg/dL (0.3-1.0); Calcium 8.1 mg/dL (8.6-10.3); Globulin 2.3 g/dL (2.4-3.5); Potassium 4.3 mEq/L (3.5-5.1); Total Protein 5.5 g/dL (6.4-8.9)
[2019-08-22 13:58] LABS: Prothrombin Time 11.8 Seconds (9.4-12.1)
[2019-08-22 14:01] LABS: Activated Partial Thrombo Time 28.2 Seconds (26.0-36.0)
[2019-08-22] MEDS ORDERED: Aspirin 325 MG TABLET PO ONE (14:21)
[2019-08-22] MEDS ORDERED: Ondansetron 4 MG/2 ML VIAL IVP PRN (15:22)
[2019-08-22] MEDS ORDERED: Acetaminophen 325 MG TABLET PO PRN (15:22)
[2019-08-22] MEDS ORDERED: methylPREDNISolone 125 MG/2 ML VIAL IVP ONE (16:11)
[2019-08-22] MEDS ORDERED: Azithromycin 250 MG TABLET PO ONE (16:12)
[2019-08-22] MEDS ORDERED: D5% in Water 1,000 ML IVC PRN (16:17)
[2019-08-22] MEDS ORDERED: *HR* Dextrose 50 % in Water (Syg) 50 ML SYRINGE IVP PRN (16:17)
[2019-08-22] MEDS ORDERED: Dextrose Gel 15 GM/37.5 ML TUBE PO PRN ×2 (16:17)
[2019-08-22] MEDS: Ipratropium/Albuterol Neb 3 ML IH SCH ×2 (20:07→23:13)
[2019-08-22] MEDS: Acetylcysteine 10% 2 ML INHSOL IH SCH ×2 (20:07→23:13)
[2019-08-22] MEDS: Insulin LISPRO 300 UNITS/3 ML VIAL SQ SCH ×2 (20:09→21:35)
[2019-08-22] MEDS: Finasteride 5 MG TABLET PO SCH (21:32)
[2019-08-22] MEDS: *HR* Heparin 5,000 UNIT/ML VIAL SQ SCH (21:32)
[2019-08-22] MEDS: Budesonide Neb 0.5 MG/2 ML IH SCH (23:13)
[2019-08-23 02:54] LABS: Hematocrit 35.2 % (37.5-50.1); Hemoglobin 11.6 g/dL (12.9-16.9); Mean Corpuscular Hemoglobin 32.4 pg (28.0-33.3); Mean Corpuscular Volume 98.3 fL (83.0-100.0); Mean Platelet Volume 9.9 fL (9.4-12.4); Platelet Count 145 K/mcL (140-400); Red Blood Count 3.58 M/mcL (4.19-5.50); White Blood Count 10.7 K/mcL (4.3-11.1)
[2019-08-23] MEDS: Acetylcysteine 10% 2 ML INHSOL IH SCH ×6 (03:16→23:23)
[2019-08-23] MEDS: Ipratropium/Albuterol Neb 3 ML IH SCH ×6 (03:16→23:22)
[2019-08-23 03:39] LABS: Adenovirus Not Detected (Not Detect); Bordetella Pertussis Not Detected (Not Detect); Chlamydophila pneumoniae Not Detected (Not Detect); Coronavirus 229E Not Detected (Not Detect); Coronavirus HKU1 Not Detected (Not Detect); Coronavirus NL63 Not Detected (Not Detect); Coronavirus OC43 Not Detected (Not Detect); Human Metapneumovirus Not Detected (Not Detect); Human Rhinovirus/Enterovirus Not Detected (Not Detect); Influenza A Subtype 2009 H1 Not Detected (Not Detect); Influenza B Not Detected (Not Detect); Mycoplasma pneumoniae Not Detected (Not Detect); Parainfluenza Virus 1 Not Detected (Not Detect); Parainfluenza Virus 2 Not Detected (Not Detect); Parainfluenza Virus 3 Not Detected (Not Detect); Parainfluenza Virus 4 Not Detected (Not Detect); Respiratory Syncytial Virus DETECTED (Not Detect)
[2019-08-23] MEDS: *HR* Heparin 5,000 UNIT/ML VIAL SQ SCH ×2 (06:15→16:35)
[2019-08-23 06:31] LABS: Calcium 8.1 mg/dL (8.6-10.3); Magnesium 2.1 mg/dL (1.6-2.6); Potassium 3.7 mEq/L (3.5-5.1)
[2019-08-23] MEDS: Budesonide Neb 0.5 MG/2 ML IH SCH ×2 (07:29→20:25)
[2019-08-23] MEDS: Metoprolol XL (24 HR) Succ 50 MG TAB.ER.24H PO SCH (08:08)
[2019-08-23] MEDS: Azithromycin 250 MG TABLET PO SCH (08:08)
[2019-08-23] MEDS: Furosemide 40 MG TABLET PO SCH (08:09)
[2019-08-23] MEDS: predniSONE 20 MG TABLET PO SCH (08:09)
[2019-08-23] MEDS: Insulin LISPRO 300 UNITS/3 ML VIAL SQ SCH ×4 (08:10→19:55)
[2019-08-23] MEDS ORDERED: Finasteride 5 MG TABLET PO SCH (09:00)
[2019-08-23] MEDS: 0.9 % Sodium Chloride 1,000 ML IVC SCH (15:39)
[2019-08-23] MEDS: Finasteride 5 MG TABLET PO SCH (19:34)
[2019-08-23] MEDS ORDERED: Insulin DETEMIR 100 UNIT/ML X5UNITS SQ SCH (21:00)
[2019-08-23] MEDS ORDERED: *HR* Dextrose 50 % in Water (Syg) 50 ML SYRINGE IVP PRN (21:51)
[2019-08-23] MEDS ORDERED: Insulin Human Regular 100 UNIT in 0.9 % Sodium Chloride 100 ML IVC SCH (22:00)
[2019-08-24] MEDS: Ipratropium/Albuterol Neb 3 ML IH SCH ×3 (03:42→11:30)
[2019-08-24] MEDS: Acetylcysteine 10% 2 ML INHSOL IH SCH ×3 (03:43→11:30)
[2019-08-24] MEDS: *HR* Heparin 5,000 UNIT/ML VIAL SQ SCH (05:31)
[2019-08-24 07:16] VITALS: BP 114/63
[2019-08-24] MEDS ORDERED: Insulin LISPRO 300 UNITS/3 ML VIAL SQ SCH (07:30)
[2019-08-24] MEDS: Azithromycin 250 MG TABLET PO SCH (08:36)
[2019-08-24] MEDS: Furosemide 40 MG TABLET PO SCH (08:36)
[2019-08-24] MEDS: Metoprolol XL (24 HR) Succ 50 MG TAB.ER.24H PO SCH (08:36)
[2019-08-24] MEDS: predniSONE 20 MG TABLET PO SCH (08:36)
[2019-08-24] MEDS: Budesonide Neb 0.5 MG/2 ML IH SCH (09:24)
[2019-08-24 10:43] LABS: Calcium 8.3 mg/dL (8.6-10.3); Potassium 4.2 mEq/L (3.5-5.1)
== END 2019-08-24 13:09 | disposition home health service (06) ==
LOC: 2NENU 12:59 → EMEROOARM 12:59 → SUATTDRO 16:32 → 2NENU 18:04
PROVIDERS: ADMIT Internal Medicine; ATTEND Internal Medicine

== ENCOUNTER 2019-09-18 10:02 | Observation (INO) ==
[2019-09-18 10:33] LABS: Basophils % 0.1 %; Eosinophils % 0.1 %; Hematocrit 36.3 % (37.5-50.1); Hemoglobin 11.7 g/dL (12.9-16.9); Immature Granulocytes % 0.4 % (0-4); Lymphocytes # 1.7 K/mcL (0.6-4.6); Lymphocytes % 22.8 %; Mean Corpuscular HGB Conc 32.2 g/dL (31.6-35.5); Mean Corpuscular Hemoglobin 32.1 pg (28.0-33.3); Mean Corpuscular Volume 99.5 fL (83.0-100.0); Monocytes # 0.5 K/mcL (0.0-1.3); Monocytes % 6.9 %; Neutrophils # 5.2 K/mcL (1.6-8.9); Platelet Count 193 K/mcL (140-400); Red Blood Count 3.65 M/mcL (4.19-5.50); Red Cell Distribution Width 14.3 % (11.5-14.5); Segmented Neutrophils % 69.7 %; White Blood Count 7.4 K/mcL (4.3-11.1)
[2019-09-18 10:39] LABS: VBG HCO3 31 mEq/L (21-27); VBG PCO2 50 mmHg (41-51); VBG PH 7.41 pH Units (7.32-7.42); VBG PO2 47 mmHg (25-50)
[2019-09-18 11:05] LABS: Potassium 4.8 mEq/L (3.5-5.1); Troponin I 0.13 ng/mL (< 0.04)
[2019-09-18] MEDS ORDERED: Aspirin 325 MG TABLET PO ONE (11:06)
[2019-09-18 11:20] LABS: INR 1.1; Prothrombin Time 12.4 Seconds (9.4-12.1)
[2019-09-18] MEDS ORDERED: Furosemide 40 MG/4 ML VIAL IVP ONE (12:21)
[2019-09-18] MEDS ORDERED: Naloxone 0.4 MG/ML INJ IVP PRN (14:18)
[2019-09-18] MEDS ORDERED: Dextrose Gel 15 GM/37.5 ML TUBE PO PRN ×2 (14:41)
[2019-09-18] MEDS ORDERED: *HR* Dextrose 50 % in Water (Syg) 50 ML SYRINGE IVP PRN (14:41)
[2019-09-18] MEDS ORDERED: D5% in Water 1,000 ML IVC PRN (14:41)
[2019-09-18] MEDS: Ipratropium/Albuterol Neb 3 ML IH SCH ×2 (15:46→22:18)
[2019-09-18] MEDS: Budesonide Neb 0.5 MG/2 ML IH SCH (15:46)
[2019-09-18] MEDS ORDERED: Valsartan 80 MG TABLET PO SCH (18:00)
[2019-09-18] MEDS: Insulin LISPRO 300 UNITS/3 ML VIAL SQ SCH (18:15)
[2019-09-18] MEDS ORDERED: Finasteride 5 MG TABLET PO SCH (21:00)
[2019-09-18] MEDS ORDERED: Insulin DETEMIR 100 UNIT/ML X5UNITS SQ SCH (21:00)
[2019-09-19] MEDS: Ipratropium/Albuterol Neb 3 ML IH SCH ×3 (03:38→15:27)
[2019-09-19 06:08] LABS: Basophils % 0.2 %; Eosinophils % 0.2 %; Hematocrit 34.3 % (37.5-50.1); Immature Granulocytes % 0.4 % (0-4); Lymphocytes # 1.5 K/mcL (0.6-4.6); Lymphocytes % 28.2 %; Mean Corpuscular HGB Conc 32.1 g/dL (31.6-35.5); Mean Corpuscular Hemoglobin 31.5 pg (28.0-33.3); Mean Corpuscular Volume 98.3 fL (83.0-100.0); Mean Platelet Volume 9.4 fL (9.4-12.4); Monocytes # 0.4 K/mcL (0.0-1.3); Neutrophils # 3.3 K/mcL (1.6-8.9); Platelet Count 190 K/mcL (140-400); Red Blood Count 3.49 M/mcL (4.19-5.50); Red Cell Distribution Width 14.6 % (11.5-14.5); White Blood Count 5.2 K/mcL (4.3-11.1)
[2019-09-19 06:28] LABS: Calcium 8.8 mg/dL (8.6-10.3); Potassium 3.8 mEq/L (3.5-5.1)
[2019-09-19] MEDS: Insulin LISPRO 300 UNITS/3 ML VIAL SQ SCH ×2 (07:49→12:00)
[2019-09-19] MEDS ORDERED: Valsartan 80 MG TABLET PO SCH (09:00)
[2019-09-19 09:45] LABS: Troponin I 0.12 ng/mL (< 0.04)
[2019-09-19 10:12] LABS: RBC,Pleural Fluid < 0.002 M/mcL
[2019-09-19 10:23] LABS: Amylase,Pleural Fluid 15 Units/L (No Ref Range); Glucose,Pleural Fluid 229 mg/dL (No Ref Range); LDH,Pleural Fluid 82 Units/L (No Ref Range); Total Protein,Pleural Fluid < 3.0 g/dL
[2019-09-19] MEDS: Budesonide Neb 0.5 MG/2 ML IH SCH (10:23)
[2019-09-19 10:45] LABS: Appearance of Pleural Fl Clear (Clear)
[2019-09-19 11:46] VITALS: BP 122/71
[2019-09-19] MEDS ORDERED: Metoprolol XL (24 HR) Succ 50 MG TAB.ER.24H PO SCH (14:15)
[2019-09-19] MEDS ORDERED: Furosemide 80 MG in 0.9 % Sodium Chloride 50 ML IVPB SCH (14:45)
[2019-09-19] MEDS ORDERED: Furosemide 40 MG TABLET PO SCH (17:00)
[2019-09-19] MEDS ORDERED: Insulin DETEMIR 100 UNIT/ML X5UNITS SQ SCH (21:00)
[2019-09-20] MEDS ORDERED: Valsartan 80 MG TABLET PO SCH (09:00)
== END 2019-09-19 16:51 | disposition home health service (06) ==
LOC: EMEROOARM 10:02 → 2NENU 10:02 → SUATTDRO 12:44 → 2NENU 14:05
PROVIDERS: ADMIT Internal Medicine; ATTEND Student in an Organized Health Care Education/Training Program